=== PATIENT | male | born 1970 | race Caucasian/White ===

== ENCOUNTER 2017-10-03 20:55 | Emergency (ER) | payer MEDICAID, SELFPAY ==
[2017-10-03 21:03] VITALS: BP 151/101; PULSE 101; RESP 18; TEMP 36.6; O2SAT 98; BMI 27.3
--- NOTE | 2017-10-03 21:31 | RAD_ITS ---
STUDY: X-RAY CHEST REASON FOR EXAM: Male, 46 years old. Pain TECHNIQUE: Single AP portable view of the chest. COMPARISON: None. FINDINGS: The lungs are clear and expanded. There is no demonstrated pleural abnormality. Normal size heart. Normal mediastinum and satish. Normal visualized pulmonary arteries. Normal visualized aortic arch and descending thoracic aorta. Normal visualized thoracic spine. Normal visualized ribs, clavicles, and shoulders. There is no demonstrated abnormality of the visualized soft tissue structures of the upper abdomen. RAD/Chest 1 View (Portable) IMPRESSION: Normal x-ray examination of the chest. Electronically Signed: Bigg Osuna MD at 21:54 EST , Service support ,
--- NOTE | 2017-10-03 21:31 | EKG12_ITS ---
Test Reason : CP REPEAT Blood Pressure : / mmHG Vent. Rate : 079 BPM Atrial Rate : 079 BPM P-R Int : 180 ms QRS Dur : 086 ms QT Int : 390 ms P-R-T Axes : 027 -30 -15 degrees QTc Int : 447 ms Normal sinus rhythm Left axis deviation Inferior infarct , age undetermined Abnormal ECG Confirmed by ESTRELLITA VELEZ, MART ([id number]), web editor VICTORIA ZHU ([id number]) on 10/09/2017 2:01:07 PM Referred By: TRUNG Confirmed By:MART HARO MD
[2017-10-03 21:39] VITALS: BP 154/111; PULSE 99
[2017-10-03] MEDS: Aspirin 81 MG TAB.CHEW 324 MG PO (21:39)
[2017-10-03] MEDS: 0.9% Normal Saline 1,000 ML 150 ML IV (21:42)
[2017-10-03 21:46] LABS: Absolute Lymphocyte Count 4.04 X10^3/ul (0.83-4.51); Absolute Neutrophil Count 3.9 X10^3/uL (2.0-7.7); Basophil# 0.04 X10^3/uL; Basophil% 0.4 % (0-1); Eosinophil# 0.21 X10^3/uL; Eosinophils% 2.3 % (0-5); Hematocrit 47.8 % (40-54); Hemoglobin 16.3 g/dl (13.0-16.5); Lymphocyte # 4.04 X10^3/ul (4.0); Mean Corp Hgb Conc 34.1 g/gl (32-36); Mean Corpuscular Hgb 30.4 pg (27.0-32.0); Mean Platelet Vol. 9.2 fl (6.2-12.0); Monocyte# 0.97 X10^3/uL; Monocyte% 10.6 % (0-10); Neutrophil # 3.89 X10^3/uL (2.7-7.7); Neutrophil % 42.3 % (47-70); Platelet Count 257 K/mm3 (150-450); RBC Distribution Width CV 13.1 % (11.6-14.6); RBC Distribution Width SD 42.3 fl (35.1-43.9); Red Blood Count 5.37 M/mm3 (4.6-6.2); White Blood Count 9.2 K/mm3 (4.4-11.0)
[2017-10-03 21:47] LABS: POSITIVE COUNT NO; POSITIVE DIFFERENTIAL NO; POSITIVE MORPHOLOGY NO
--- NOTE | 2017-10-03 21:47 | ED.RN ---
CHEST PAIN COMPLETELY RESOLVED AFTER 1 NITRO.
[2017-10-03 22:00] VITALS: BP 119/91; PULSE 94; RESP 22; O2SAT 97
[2017-10-03 22:02] LABS: Anion Gap 9 (5-15); BUN 12 mg/dL (7-18); BUN/Creat Ratio 12.5 RATIO (10-20); Calcium,Total 9.1 mg/dL (8.5-10.1); Chloride 104 mmol/L (98-107); Creatinine, Serum 0.96 mg/dL (0.70-1.30); EST Glomerular Filtration Rate 89 mL/min (>60); Est Glom Filt Rate - Afr Amer 107 mL/min (>60); Estimated Creatinine Clearance 95.13 ml/min; Glucose 115 mg/dL (74-106); Potassium 3.1 mmol/L (3.5-5.1); Sodium Level 141 mmol/L (136-145)
[2017-10-03 22:39] VITALS: BP 121/89; PULSE 92; RESP 18; O2SAT 97
--- NOTE | 2017-10-03 22:41 | EKG12_ITS ---
Test Reason : CP Blood Pressure : / mmHG Vent. Rate : 100 BPM Atrial Rate : 100 BPM P-R Int : 174 ms QRS Dur : 086 ms QT Int : 366 ms P-R-T Axes : 034 -19 005 degrees QTc Int : 472 ms Normal sinus rhythm Inferior infarct , age undetermined Abnormal ECG Confirmed by ESTRELLITA VELEZ, MART ([id number]), purchasing expeditor VICTORIA ZHU ([id number]) on 10/09/2017 2:01:34 PM Referred By: TRUNG Confirmed By:MART HARO MD
[2017-10-03 23:00] VITALS: PULSE 85; RESP 16; O2SAT 98
[2017-10-04] VITALS: BP 123/93; PULSE 82; RESP 23; O2SAT 98
--- NOTE | 2017-10-04 00:48 | ED.DCSUM_ITS ---
- ER Visit Summary Date of Service: 10/04/17 Chief Complaint: Chest pain History of Present Illness: The patient is a [address] Dunn and Dr. Martínez. He reports that he has chest pain that began at 8:00 at rest. It has been a constant dull pain. Is 7 out of 10 at worst and 3-10 currently. It is worsened by nothing including exertion, movement, or breathing. It is relieved by nothing. States that radiates into his left shoulder and down his arm. States that it has made him short of breath and diaphoretic. Reports that he has had this similarly when he had anxiety or when he required stents. Patient has 4 stents that were placed in 2012. Physical Examination: Vitals: Stable. Afebrile. General: Well-nourished and well-developed. Head: Normocephalic atraumatic. Neck: Supple, no lymphadenopathy. No JVD. Nontender. Cardiovascular: Regular rate and rhythm. No murmurs. Respiratory: No respiratory distress. Clear to auscultation bilaterally. Abdominal: Soft, nontender, nondistended, normal bowel sounds. No guarding, rebound, or peritoneal signs. Back: Nontender. Extremities: Nontender, no edema. Skin: Normal color, no rash. Neurologic: Alert and oriented ?3. Cranial nerves II through XII are intact. Normal strength and sensation. Psych: Normal affect. Test Results: EKG is sinus at [address] changes. Is unchanged from 2016. Repeat EKG is unchanged. Troponin is negative. Repeat troponin is negative. Chem-7 is marked for potassium 3.1 glucose 115. Chem-7 is more for segment neutrophils of 42, lymphocytes of 44, monocytes of 11. Chest x-ray is normal. Emergency Department Course and Treatment: Patient was treated with aspirin p.o. He was given a sublingual nitroglycerin which completely resolved his pain. He was treated with potassium p.o. Treatment Plan: I had a prolonged discussion with the patient at this time that I cannot rule out that this is his heart. He is refusing to be admitted to the hospital. He will be discharged with instructions to follow-up with Dr. Martínez as soon as possible. Return to the emergency department if he has worsening pain, shortness of breath, or even just changes his mind. Disposition: Left AGAINST MEDICAL ADVICE Impression: 1. Chest pain. 2. Left AMA. 3. Hypokalemia. 4. MANOHAR score of 3. This note was generated with [employer] dictation software. It may contain incorrect words, spelling, and punctuation that were not noted in review of the chart prior to signing ED Disposition - Plan for ED Patient: Chief Complaint: Chest Pain Instructions: ED Chest Pain Atypical Unkn Cause Referrals: Perry Dunn MD [Primary Care Provider] - Srinath Hernandez MD [STAFF PHYSICIAN] - As soon as possible
[2017-10-04 01:10] VITALS: BP 126/92; PULSE 72; RESP 18; O2SAT 99
== END 2017-10-04 01:11 | disposition home or self-care (01) ==
LOC: ED 22:01
PROVIDERS: Emergency Provider Emergency Medicine; Family Provider Family Medicine; PCP Family Medicine
DX: R07.9 Chest pain, unspecified (principal); Z53.21 Procedure and treatment not carried out due to patient leaving prior to being seen by health care provider; E87.6 Hypokalemia; R06.00 Dyspnea, unspecified; F41.9 Anxiety disorder, unspecified; I25.10 Atherosclerotic heart disease of native coronary artery without angina pectoris; Z86.79 Personal history of other diseases of the circulatory system; Z86.39 Personal history of other endocrine, nutritional and metabolic disease; Z95.5 Presence of coronary angioplasty implant and graft; Z87.898 Personal history of other specified conditions; F17.200 Nicotine dependence, unspecified, uncomplicated
CPT/HCPCS: 71045; 80048; 84484; 85025; 93005; 96365; 96366; 99285; J7030; A4216

== ENCOUNTER 2017-10-10 09:28 | Observation (INO) | payer MEDICAID, SELFPAY ==
[2017-10-10] VITALS (15 sets, daily range): BP systolic 103–158; BP diastolic 73–107; PULSE 58–84; RESP 16–20; TEMP 36.5–36.8; O2SAT 95–99; BMI 26.6; BMI 26.9
--- NOTE | 2017-10-10 09:42 | EKG12_ITS ---
Test Reason : REPEAT Blood Pressure : / mmHG Vent. Rate : 077 BPM Atrial Rate : 077 BPM P-R Int : 196 ms QRS Dur : 080 ms QT Int : 406 ms P-R-T Axes : 022 -17 -07 degrees QTc Int : 459 ms Normal sinus rhythm Inferior infarct , age undetermined Abnormal ECG Confirmed by ESTRELLITA VELEZ, MART ([id number]), newspaper editor VICTORIA ZHU ([id number]) on 10/15/2017 2:00:11 PM Referred By: GENTRY Confirmed By:MART HARO MD
--- NOTE | 2017-10-10 09:42 | EKG12_ITS ---
Test Reason : CHEST PAIN Blood Pressure : / mmHG Vent. Rate : 077 BPM Atrial Rate : 077 BPM P-R Int : 196 ms QRS Dur : 076 ms QT Int : 406 ms P-R-T Axes : 015 -15 -06 degrees QTc Int : 459 ms Normal sinus rhythm Inferior infarct , age undetermined Abnormal ECG Confirmed by ESTRELLITA VELEZ, MART ([id number]), features editor VICTORIA ZHU ([id number]) on 10/15/2017 2:00:41 PM Referred By: YANDEL Confirmed By:MART HARO MD
--- NOTE | 2017-10-10 09:45 | ED.DCSUM_ITS ---
- ER Visit Summary Date of Service: 10/10/17 Chief Complaint: Chest pain History of Present Illness: The patient is a 46 M with known history of coronary artery disease and prior OH. Patient has 4 cardiac stents, most recent placed in 2012. Patient presents with a one-week history of waxing and waning chest pain. He describes as a tightness in the left upper chest and today has pain into his arm. He does get short of breath with exertion, especially climbing a flight of steps. Patient was seen in the ER on the for the same complaint and refused admission at that time. He has not followed up with his primary care doctor or his jackscrew man. Physical Examination: Blood pressure is 158/107, temperature 97.9, heart rate 84 , respiratory rate 16, pulse ox 99% on room air. Patient is in no acute distress and is nontoxic appearing. Head and neck examination is normal. Heart is regular rate and rhythm. Palpable pulses are noted throughout. Lungs are clear with good air movement throughout. Abdomen is soft and nontender. Bowel sounds are noted. Extremity examination is unremarkable with full range of motion. Neurologic examination reveals no focal deficits. Test Results: EEG is sinus at 77 with no sign of acute ischemia. Repeat 20 minutes later is unchanged. CBC and chemistry studies are normal. Troponin is less than 0.02. Chest x-ray is unremarkable. Emergency Department Course and Treatment: Patient received aspirin and sublingual nitroglycerin here. On repeat evaluation he is currently pain-free. He has agreed to hospital admission. Hospitalist will be contacted for admission. Treatment Plan: [] Disposition: Admit Impression: Chest pain This note was generated with [employer] dictation software. It may contain incorrect words, spelling, and punctuation that were not noted in review of the chart prior to signing ED Disposition - Plan for ED Patient: Chief Complaint: Chest Pain Referrals: Perry Dunn MD [Primary Care Provider] -
--- NOTE | 2017-10-10 09:45 | RAD_ITS ---
STUDY: X-RAY CHEST REASON FOR EXAM: Male, 46 years old. Chest pain. TECHNIQUE: Single AP portable view of the chest. COMPARISON: Comparison is made with prior study dated October 03, 2017. FINDINGS: EKG electrodes are seen. The lungs are clear and expanded. There is no demonstrated pleural abnormality. Normal size heart. Normal mediastinum and satish. Normal visualized pulmonary arteries. Normal visualized aortic arch and descending thoracic aorta. Normal visualized thoracic spine. Normal visualized ribs, clavicles, and shoulders. There is no demonstrated abnormality of the visualized soft tissue structures of the upper abdomen. RAD/Chest 1 View (Portable) IMPRESSION: Normal x-ray examination of the chest. Electronically Signed: Jose Nolen MD at 10:18 EST Tel [phone], Service support ,
[2017-10-10] MEDS: Aspirin 81 MG TAB.CHEW 324 MG PO (10:03)
[2017-10-10] MEDS: 0.9% Normal Saline 1,000 ML 150 ML IV (10:03)
[2017-10-10 10:26] LABS: Absolute Lymphocyte Count 2.97 X10^3/ul (0.83-4.51); Absolute Neutrophil Count 3.9 X10^3/uL (2.0-7.7); Basophil# 0.03 X10^3/uL; Basophil% 0.4 % (0-1); Eosinophil# 0.17 X10^3/uL; Eosinophils% 2.1 % (0-5); Hematocrit 47.1 % (40-54); Hemoglobin 16.2 g/dl (13.0-16.5); Lymphocyte # 2.97 X10^3/ul (4.0); Lymphocyte % 37.4 % (19-41); Mean Corp Hgb Conc 34.4 g/gl (32-36); Mean Corpuscular Hgb 30.6 pg (27.0-32.0); Mean Corpuscular Volume 88.9 fL (80-94); Monocyte# 0.89 X10^3/uL; Monocyte% 11.2 % (0-10); Neutrophil # 3.87 X10^3/uL (2.7-7.7); Neutrophil % 48.6 % (47-70); Platelet Count 245 K/mm3 (150-450); RBC Distribution Width SD 41.9 fl (35.1-43.9)
[2017-10-10 10:32] LABS: POSITIVE COUNT NO; POSITIVE DIFFERENTIAL NO; POSITIVE MORPHOLOGY NO
[2017-10-10 10:37] LABS: Anion Gap 7 (5-15); BUN 13 mg/dL (7-18); BUN/Creat Ratio 14.9 RATIO (10-20); Calcium,Total 8.6 mg/dL (8.5-10.1); Chloride 107 mmol/L (98-107); Creatinine, Serum 0.87 mg/dL (0.70-1.30); EST Glomerular Filtration Rate 100 mL/min (>60); Est Glom Filt Rate - Afr Amer 121 mL/min (>60); Estimated Creatinine Clearance 104.97 ml/min; Glucose 92 mg/dL (74-106); Potassium 3.5 mmol/L (3.5-5.1); Sodium Level 141 mmol/L (136-145)
--- NOTE | 2017-10-10 11:13 | PCM.HP.STD ---
Problem List (1) Chest pain Status: Acute Qualifiers: Ischemic chest pain type: unspecified angina pectoris type (2) CAD (coronary artery disease) Status: Chronic Qualifiers: Coronary Disease-Associated Artery/Lesion type: unspecified vessel or lesion type Associated angina: with unspecified angina Comment: 4 stents last 06/18 (3) Tobacco abuse Status: Chronic History of Present Illness Date of Admission: 10/10/17 Chief Complaint: Chest pain, ongoing for 1 week The patient is a 46 year old M with PMHx of CAD s/p stents, nicotine use disorder comes in with chest pain, which is substernal, radiates to left arm, associated with tingling/the left. This pain has been ongoing for a week, comes on and lasts for about few minutes to an hour. Denies nausea, vomiting, dizziness or palpitations or orthopnea or PND. Previous cardiac cath showed Left anterior descending artery with previously placed stents in the proximal LAD and distal LAD with no significant stenosis, with mild ostial diagonal stenosis with mild diffuse disease.Dominant left circumflex artery with previously placed stent in the proximal vessel which is patent and large obtuse marginal branch with no significant stenosis and a bifurcating vessel. Continuation of circumflex artery with ostial 60% stenosis which does not appear to be significant. Nondominant right coronary artery with mild diffuse disease. Mild left ventricle systolic dysfunction with mild anterior hypokinesis. Estimated ejection fraction 45-50%. Patient was seen earlier in ED on 10/04/2017 for similar complains of chest pain, just admission, promised to follow up with Dr. Martínez in the outpatient. Patient did not follow-up. Cannot remember his last 2D echo or stress test. In the ED, vitals were stable. Patient states his chest pain improved with nitro. EKG is unchanged from previous. Past Medical History Past Medical History (Chronic Problems): Chronic Problems Dyslipidemia (Chronic) Tobacco abuse (Chronic) CAD (coronary artery disease) (Chronic) 4 stents last 06/18 Allergies hydrochlorothiazide Allergy (Verified 10/10/17 09:31) Unknown Home Medications: Ambulatory Orders Medication Instructions Recorded Sertraline HCl [Zoloft] 100 mg PO DAILY 10/10/17 Surgical History: no surgical history, - - low back surgery for spinal canal stenosis Psychiatric History: Depression Smoking Status: Current every day smoker Tobacco Use: Cigarettes Alcohol: None Drugs: None - *Family History Maternal History Items: No pertinent history Paternal History Items: No pertinent history Review of Systems Constitutional: Denies: Anorexia, Chills, Fever, Night Sweats, Malaise, Weakness, Weight Change Eyes: Denies: Blurred vision, Cataracts, Conjunctivae Inflammation, Pain, Redness HEENT: Denies: Difficulty Hearing, Difficulty Swallowing, Head Aches, Hearing Changes, Nasal bleeding, Sinus Congestion, Sinus Drainage, Sore Throat Cardiovascular: Denies: Chest Pain, Claudication, Chest Pressure, Chest Tightness, Orthopnea, Palpitations, Paroxysmal Noc. Dyspnea Respiratory: Denies: Cough, Hemoptysis, Shortness of breath at rest, Shortness of breath upon exertion, Sputum production Gastrointestinal: Denies: Abdominal Pain, Constipation, Hematemesis, Hematochezia, Nausea, Vomiting Genitourinary: Denies: Dysuria, Frequency, Incontinence Musculoskeletal: Denies: Joint Pain, Joint stiffness, Joint swelling, Joint Tenderness Skin: Denies: Rash, Wounds Neurological: Denies: Difficulty swallowing, Focal weakness, Numbness, Tingling Psychiatric: Denies: Anxiety, Depression, Homicidal Ideations, Suicidal Ideations Hematologic/ Lymphatic: Denies: Easy Bruising, Easy Bleeding VTE Information - Inpt Only VTE Present on Admission: No VTE Pharm Prophylaxis ordered?: Yes Patient Problems: Active and Suspected Problems Chest pain (Acute) - Physical Exam General: Alert, Oriented x3, Cooperative, No apparent distress HEENT: Atraumatic, PERRLA, EOMI, Normocephalic Oral: Moist Mucosa Neck: Supple Lungs: Clear to auscultation, Normal air movement Cardiovascular: Regular rate, Regular Rhythm, Normal S1, Normal S2, No murmurs Abdomen: Bowel Sounds Present, Soft, Non Tender, Non-Distended, No Hepato-splenomegaly, Obese Extremities: No edema Skin: No rashes, - - Multiple skin tattoes Musculoskeletal: No Tenderness to Palpation of Joints or Extremities Lymphatic: No Cervical, Supraclavicular, or Inguinal Adenopathy Neurological: Cranial nerves II-XII grossly intact Psych/Mental Status: Normal Affect, Appropriate Vital Signs Temp Pulse Resp BP Pulse Ox 97.9 F 64 20 H 103/77 97 10/10/17 09:29 10/10/17 11:07 10/10/17 11:07 10/10/17 11:07 10/10/17 11:07 Oxygen Delivery Method Room Air Weight: 81.8 kg Body Mass Index (BMI) 26.6 Laboratory Tests Past 24 Hrs 10/10/17 10/10/17 09:57 09:57 WBC 8.0 RBC 5.30 Hgb 16.2 Hct 47.1 MCV 88.9 MCH 30.6 MCHC 34.4 RDW 13.0 RDW Differential 41.9 Plt Count 245 MPV 9.0 Immature Gran % (Auto) 0.300 Neut % (Auto) 48.6 Lymph % (Auto) 37.4 [place]morton % (Auto) 11.2 H Eos % (Auto) 2.1 Baso % (Auto) 0.4 Absolute Neuts (auto) 3.9 Absolute Lymphs (auto) 2.97 Total Counted Not Reportable Sodium 141 Potassium 3.5 Chloride 107 Carbon Dioxide 27.0 Anion Gap 7 BUN 13 Creatinine 0.87 Estim Creat Clear Calc 104.97 Est GFR (MDRD) Af Amer 121 Est GFR (MDRD) Non-Af 100 BUN/Creatinine Ratio 14.9 Glucose 92 Calcium 8.6 Troponin I < 0.02 Assessment/Plan Active and Suspected Problems Chest pain (Acute) 46 year old M with PMHx of CAD s/p stents, nicotine use disorder, follows with Dr. Martínez in the outpatient, comes in with chest pain, which is substernal, radiates to left arm, associated with tingling/the left going for 1 week. 1. Chest pain, typical, history of CAD status post stents, smoker, troponin x1 neg, no new ekg changes. Plan: Admit to PCU, monitor on telemetry, trend troponins, aspirin, nitro prn, cardiology consult, 2d-echo, stress test 2. Chronic nicotine use disorder, osteoporosis, would put on nicotine gum and patch off in the hospital 3. Anxiety/depression, on Zoloft 4. DVT PPx - Lovenox SC Code Visit OBSV E&M: 42037 Initial observation care L3
--- NOTE | 2017-10-10 11:49 | ECHOD_ITS ---
Reason For Study: Chest Pain Procedure This was a 2D Doppler, Color Flow transthoracic echocardiogram. Exam performed portable in patient room. Left Ventricle Moderately dilated left ventricle. The estimated ejection fraction is 45 %. Normal diastology for age. Infero-Basal: Severely Hypokinetic. Mid-Posterior: Mildly hypokinetic. Right Ventricle Normal size and thickness. Normal systolic function. Atria Normal left atrium. Normal right atrium. Normal atrial septum. Mitral Valve The mitral valve is structurally normal. No prolapse or stenosis seen. Trivial mitral valve insufficiency. Tricuspid Valve Normal tricuspid valve. Trivial tricuspid valve insufficiency. Right ventricular systolic pressure estimated to be 23 mmHg. Aortic Valve Trisinus/trileaflet aortic valve. Normal aortic valve. Pulmonic Valve Normal pulmonic valve. Great Vessels Normal aortic root. Normal arch. Normal inferior vena cava. Inferior vena cava collapse with sniff. Pericardium/Pleural No pericardial effusion. MMode/2D Measurements & Calculations LVIDd: 5.5 cm IVSd: 1.1 cm Ao root diam: 3.3 cm LVIDs: 4.0 cm LVPWd: 0.85 cm LA dimension: 3.8 cm RVDd: 3.4 cm FS: 27.4 % LAV(MOD-bp): 37.6 ml LA A4 area: 14.8 cm2 RA A4 area: 13.0 cm2 LAV(MOD-bp) Indexed: 19.0 ml/m2 LAV(MOD-sp2): 34.2 ml LAV(MOD-sp4): 34.7 ml Doppler Measurements & Calculations MV E max soy: 67.4 cm/sec Lat Peak E' Soy: 12.8 cm/sec Med Peak E' Soy: 6.8 cm/sec MV A max soy: 52.5 cm/sec E/E' lat: 5.3 E/E' med: 9.8 MV E/A: 1.3 Ao V2 max: 109.3 cm/sec LV V1 max: 81.5 cm/sec PA V2 max: 92.3 cm/sec Ao max P.8 mmHg LV V1 max P.7 mmHg Ao V2 mean: 87.2 cm/sec Ao mean P.2 mmHg Ao V2 VTI: 23.2 cm TR max soy: 203.5 cm/sec TR max P.6 mmHg Interpretation Summary Moderately dilated left ventricle. The estimated ejection fraction is 45 %. Normal diastology for age. Trivial mitral valve insufficiency. Right ventricular systolic pressure estimated to be 23 mmHg. Compard to echo report dated 12/22/2009, LV function has worsedned from 65% to 45% with new inferior posterior hypokinesis. Ordering Physician: Rupal Kramer Referring Physician: Perry Dunn Performed By: Amy Barr RDCS, RVT
--- NOTE | 2017-10-10 15:29 | PCM.CONS.C ---
Problem List (1) Chest pain Status: Acute Qualifiers: Ischemic chest pain type: unspecified angina pectoris type (2) Dyslipidemia Status: Chronic (3) HTN (hypertension) Status: Acute Qualifiers: Hypertension type: essential hypertension Qualified Code(s): I10 - Essential (primary) hypertension (4) Tobacco abuse Status: Chronic (5) CAD (coronary artery disease) Status: Chronic Qualifiers: Coronary Disease-Associated Artery/Lesion type: unspecified vessel or lesion type Associated angina: with unspecified angina Comment: 4 stents last 06/18 Reason for Consult Date of Consultation: 10/10/17 Reason for Consultation: Chest pain, coronary disease, status post stent, hypertension, tobacco abuse, hypercholesterolemia History of Present Illness: The patient is a 46 year old M, well-known to Dr. Berg myself, with a history of hypertension, hypercholesterolemia, tobacco abuse, [id number] smoking history, coronary artery disease status post angioplasty and stenting to his LAD, left circumflex artery, and moderate LV dysfunction with an EF around 45% with inferior posterior hypokinesis. On 07/15/13 the patient underwent successful angioplasty and stenting of the mid distal LAD, diagonal #1, and proximal LAD. Unfortunately the patient did not follow-up in our office since 2014 and is missed several appointments. Patient was doing well up until the last several weeks when he is developed progressively worsening substernal chest pressure, dyspnea on exertion, shortness of breath and tingling down his right arm. He has no associated nausea, vomiting or diaphoresis with these symptoms. 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 His first 2 troponins have been negative thus far. On further history the patient has discontinued his aspirin, Plavix, antihypertensive medications as well as his cholesterol medication but takes Zoloft for depressive disease. Unfortunately continues to smoke around one pack of cigarettes per day. [] Past Medical History Allergies/Adverse Reactions: Allergies hydrochlorothiazide Allergy (Verified 10/10/17 09:31) Unknown Home Medications: Ambulatory Orders Medication Instructions Recorded Sertraline HCl [Zoloft] 100 mg PO DAILY 10/10/17 Past Medical History (Chronic Problems): Chronic Problems Dyslipidemia (Chronic) Tobacco abuse (Chronic) CAD (coronary artery disease) (Chronic) 4 stents last 06/18 Surgical History: no surgical history, - - low back surgery for spinal canal stenosis Psychiatric History: Depression - *Family History Maternal History Items: No pertinent history Paternal History Items: No pertinent history Smoking Status: Current every day smoker Tobacco Use: Cigarettes Alcohol: None Drugs: None Review of Systems - Review of Systems General: Denies: Fever, Night Sweats, Fatigue Cardiovascular: Reports: Chest Discomfort, Chest Discomfort with Exertion, Shortness of Breath, Shortness of Breath with Exertion. Denies: Orthopnea, PND, Peripheral Edema, Palpitations, Lightheadedness, Dizziness, Near Syncope, Syncope Respiratory: Denies: Cough, Sputum Production, Hemoptysis Gastrointestinal: Denies: Hematemesis, Hematochezia, Melena Genitourinary: Denies: Dysuria, Hematuria Skin: Denies: Rash Subjectve: Patient laying in bed, no acute distress. Objective: Vital Signs Temp Pulse Resp BP Pulse Ox 97.7 F L 63 16 113/73 98 10/10/17 11:50 10/10/17 11:54 10/10/17 11:50 10/10/17 11:50 10/10/17 13:00 Oxygen Delivery Method Room Air Weight: 182 lb 1.629 oz Body Mass Index (BMI) 26.9 General: Awake, Alert, Oriented x 3 HEENT: PERRL, EOMI, Sclera Non Icteric Neck: Supple, Good ROM, No Lymph Node Enlargement Lungs: Clear to auscultation Cardiovascular: Regular Rhythm, Normal S1, Normal S2, No Murmurs, No Rubs, No Gallops Vascular: No Carotid Bruits, Normal Femoral Pulses, Normal Radial Pulses, Normal Dorsalis Pedal Pulse, Normal Posterior Tibial Pulses Abdomen: Bowel Sounds Present, Soft, Non Tender, No HSM, No Organomegaly Extremities: No Cyanosis, No Clubbing, No edema Neurological: No Focal Motor or Sensory Deficit 10/10/17 14:03: Troponin I < 0.02 Rhythm: EKG: As above ECHO: Pending Stress Test: Cardiac Cath: PCI: CT Surgery: Holter monitor: EPS: PPM: CXR: Chest CT Scan: Assessment/Plan 1. Coronary artery disease: Patient has recurrent substernal chest pressure, with associated dyspnea on exertion, shortness of breath, in the face of ongoing tobacco abuse and cessation of all cardiac medications including aspirin, Plavix, cholesterol medications and antihypertensive medications. His most recent angioplasty took place in 2012 which involved angioplasty and stenting to the LAD and diagonal system. His repeat catheterization by Dr. Berg in 2013 demonstrated widely patent stents to the LAD, left circumflex, and diagonal branches. I have reviewed those films today. I recommend the patient be reinitiated on baby aspirin 81 mg p.o. daily, restart Lopressor 25 mg p.o. twice daily after his stress test has been completed, restart lisinopril 5 mg p.o. daily. If his stress test is markedly abnormal particularly for anterior ischemia would recommend loading him with 300 mg of Plavix followed by 75 mg p.o. daily and he will require repeat catheterization probably on Sunday. 2.: Recommend obtaining a repeat lipid profile in restarting Lipitor 80 mg p.o. nightly. 3. Tobacco cessation: I had a long and thorough discussion with patient regarding tobacco cessation, and have strongly recommended discontinuation of all tobacco products. 4. Thank you very much for the opportunity to participate in the cardiac care of your patient. Consultation time took place between 215 and 2:45 PM. Code Visit Inpatient E&M: 80973 Init Hosp L2
--- NOTE | 2017-10-10 15:41 | CON.PCM_ITS ---
Problem List (1) Chest pain Status: Acute Qualifiers: Ischemic chest pain type: unspecified angina pectoris type (2) Dyslipidemia Status: Chronic (3) HTN (hypertension) Status: Acute Qualifiers: Hypertension type: essential hypertension Qualified Code(s): I10 - Essential (primary) hypertension (4) Tobacco abuse Status: Chronic (5) CAD (coronary artery disease) Status: Chronic Qualifiers: Coronary Disease-Associated Artery/Lesion type: unspecified vessel or lesion type Associated angina: with unspecified angina Comment: 4 stents last 06/18 Reason for Consult Date of Consultation: 10/10/17 Reason for Consultation: Chest pain, coronary disease, status post stent, hypertension, tobacco abuse, hypercholesterolemia History of Present Illness: The patient is a 46 year old M, well-known to Dr. Begr myself, with a history of hypertension, hypercholesterolemia, tobacco abuse, [id number] smoking history, coronary artery disease status post angioplasty and stenting to his LAD , left circumflex artery, and moderate LV dysfunction with an EF around 45% with inferior posterior hypokinesis. On 07/15/13 the patient underwent successful angioplasty and stenting of the mid distal LAD, diagonal #1, and proximal LAD. Unfortunately the patient did not follow-up in our office since 2014 and is missed several appointments. Patient was doing well up until the last several weeks when he is developed progressively worsening substernal chest pressure, dyspnea on exertion, shortness of breath and tingling down his right arm. He has no associated nausea, vomiting or diaphoresis with these symptoms. Patient sought medical attention at [facility] ER and EKG was performed which showed normal sinus rhythm with old inferior posterior wall myocardial infarction, no acute changes. His first 2 troponins have been negative thus far. On further history the patient has discontinued his aspirin, Plavix, antihypertensive medications as well as his cholesterol medication but takes Zoloft for depressive disease. Unfortunately continues to smoke around one pack of cigarettes per day. [] Past Medical History Allergies/Adverse Reactions: Allergies hydrochlorothiazide Allergy (Verified 10/10/17 09:31) Unknown Home Medications: Ambulatory Orders Medication Instructions Recorded Sertraline HCl [Zoloft] 100 mg PO DAILY 10/10/17 Past Medical History (Chronic Problems): Chronic Problems Dyslipidemia (Chronic) Tobacco abuse (Chronic) CAD (coronary artery disease) (Chronic) 4 stents last 06/18 Surgical History: no surgical history, - - low back surgery for spinal canal stenosis Psychiatric History: Depression - *Family History Maternal History Items: No pertinent history Paternal History Items: No pertinent history Smoking Status: Current every day smoker Tobacco Use: Cigarettes Alcohol: None Drugs: None Review of Systems - Review of Systems General: Denies: Fever, Night Sweats, Fatigue Cardiovascular: Reports: Chest Discomfort, Chest Discomfort with Exertion, Shortness of Breath, Shortness of Breath with Exertion. Denies: Orthopnea, PND , Peripheral Edema, Palpitations, Lightheadedness, Dizziness, Near Syncope, Syncope Respiratory: Denies: Cough, Sputum Production, Hemoptysis Gastrointestinal: Denies: Hematemesis, Hematochezia, Melena Genitourinary: Denies: Dysuria, Hematuria Skin: Denies: Rash Subjectve: Patient laying in bed, no acute distress. Objective: Vital Signs Temp Pulse Resp BP Pulse Ox 97.7 F L 63 16 113/73 98 10/10/17 11:50 10/10/17 11:54 10/10/17 11:50 10/10/17 11:50 10/10/17 13:00 Oxygen Delivery Method Room Air Weight: 182 lb 1.629 oz Body Mass Index (BMI) 26.9 General: Awake, Alert, Oriented x 3 HEENT: PERRL, EOMI, Sclera Non Icteric Neck: Supple, Good ROM, No Lymph Node Enlargement Lungs: Clear to auscultation Cardiovascular: Regular Rhythm, Normal S1, Normal S2, No Murmurs, No Rubs, No Gallops Vascular: No Carotid Bruits, Normal Femoral Pulses, Normal Radial Pulses, Normal Dorsalis Pedal Pulse, Normal Posterior Tibial Pulses Abdomen: Bowel Sounds Present, Soft, Non Tender, No HSM, No Organomegaly Extremities: No Cyanosis, No Clubbing, No edema Neurological: No Focal Motor or Sensory Deficit 10/10/17 14:03: Troponin I < 0.02 Rhythm: EKG: As above ECHO: Pending Stress Test: Cardiac Cath: PCI: CT Surgery: Holter monitor: EPS: PPM: CXR: Chest CT Scan: Assessment/Plan 1. Coronary artery disease: Patient has recurrent substernal chest pressure, with associated dyspnea on exertion, shortness of breath, in the face of ongoing tobacco abuse and cessation of all cardiac medications including aspirin , Plavix, cholesterol medications and antihypertensive medications. His most recent angioplasty took place in 2012 which involved angioplasty and stenting to the LAD and diagonal system. His repeat catheterization by Dr. Berg in 2013 demonstrated widely patent stents to the LAD, left circumflex, and diagonal branches. I have reviewed those films today. I recommend the patient be reinitiated on baby aspirin 81 mg p.o. daily, restart Lopressor 25 mg p.o. twice daily after his stress test has been completed, restart lisinopril 5 mg p.o. daily. If his stress test is markedly abnormal particularly for anterior ischemia would recommend loading him with 300 mg of Plavix followed by 75 mg p.o. daily and he will require repeat catheterization probably on Sunday. 2.: Recommend obtaining a repeat lipid profile in restarting Lipitor 80 mg p.o. nightly. 3. Tobacco cessation: I had a long and thorough discussion with patient regarding tobacco cessation, and have strongly recommended discontinuation of all tobacco products. 4. Thank you very much for the opportunity to participate in the cardiac care of your patient. Consultation time took place between 215 and 2:45 PM. Code Visit Inpatient E&M: 74193 Init Hosp L2
[2017-10-10 16:30] LABS: Cholesterol 214 mg/dL (200); High Density Lipoprotein 37 mg/dL; Triglycerides 226 mg/dL; Very Low Density Lipoprotein 45 mg/dL (5-40)
[2017-10-10] MEDS: Atorvastatin Calcium 20 MG Tablet PO (21:29)
[2017-10-11 02:58] VITALS: PULSE 62
[2017-10-11 03:45] VITALS: BP 131/76; PULSE 59; RESP 16; TEMP 36.5; O2SAT 96
--- NOTE | 2017-10-11 05:55 | EKG12_ITS ---
Test Reason : AM EKG Blood Pressure : / mmHG Vent. Rate : 060 BPM Atrial Rate : 060 BPM P-R Int : 196 ms QRS Dur : 096 ms QT Int : 444 ms P-R-T Axes : 027 -13 -15 degrees QTc Int : 444 ms Normal sinus rhythm Inferior infarct , age undetermined Abnormal ECG When compared with ECG of 10-OCT-2017 10:09, MANUAL COMPARISON REQUIRED, DATA IS UNCONFIRMED Confirmed by ESTRELLITA VELEZ, MATR ([id number]), school photograph editor VICTORIA ZHU ([id number]) on 10/15/2017 3:26:53 PM Referred By: CHRISTIANO Confirmed By:MART HARO MD
[2017-10-11 06:31] VITALS: BP 118/76; PULSE 65; RESP 16; TEMP 36.6; O2SAT 99
[2017-10-11] MEDS: Aspirin E.C. 81 MG Tablet PO (06:34)
[2017-10-11] MEDS: Lisinopril 5 MG Tablet PO (06:34)
[2017-10-11 06:37] LABS: Hematocrit 45.6 % (40-54); Hemoglobin 15.8 g/dl (13.0-16.5); Mean Corp Hgb Conc 34.6 g/gl (32-36); Mean Corpuscular Hgb 30.4 pg (27.0-32.0); Mean Corpuscular Volume 87.9 fL (80-94); Mean Platelet Vol. 8.9 fl (6.2-12.0); Platelet Count 225 K/mm3 (150-450); RBC Distribution Width CV 12.9 % (11.6-14.6); RBC Distribution Width SD 40.9 fl (35.1-43.9); Red Blood Count 5.19 M/mm3 (4.6-6.2); White Blood Count 8.2 K/mm3 (4.4-11.0)
[2017-10-11 06:39] LABS: Scan Indicated on CBC? Y/N NO
[2017-10-11 06:52] LABS: International Normalized Ratio 1.1; Prothrombin Time (Protime)PT. 13.7 SECONDS (11.7-14.9)
[2017-10-11 06:53] LABS: Partial Thromboplast Time 27.6 Seconds (24.1-36.2)
[2017-10-11 07:00] VITALS: O2SAT 96
[2017-10-11 07:06] LABS: Anion Gap 6 (5-15); BUN 12 mg/dL (7-18); BUN/Creat Ratio 15.7 RATIO (10-20); Calcium,Total 8.4 mg/dL (8.5-10.1); Chloride 108 mmol/L (98-107); Cholesterol 226 mg/dL (200); Creatinine, Serum 0.76 mg/dL (0.70-1.30); EST Glomerular Filtration Rate 116 mL/min (>60); Est Glom Filt Rate - Afr Amer 140 mL/min (>60); Estimated Creatinine Clearance 120.16 ml/min; Glucose 90 mg/dL (74-106); High Density Lipoprotein 37 mg/dL; Potassium 3.6 mmol/L (3.5-5.1); Sodium Level 140 mmol/L (136-145); Triglycerides 270 mg/dL; Very Low Density Lipoprotein 54 mg/dL (5-40)
[2017-10-11 07:10] VITALS: PULSE 57
--- NOTE | 2017-10-11 10:02 | PN.CARD_ITS ---
Subjectve: Patient doing well this morning. No 24 hour events. Telemetry negative. Stress test this morning negative for inducible ischemia. Objective: Vital Signs Temp Pulse Resp BP Pulse Ox 97.8 F 57 L 16 118/76 96 10/11/17 06:31 10/11/17 07:10 10/11/17 06:31 10/11/17 06:31 10/11/17 07:00 Oxygen Delivery Method Room Air Weight: 181 lb 7.047 oz Body Mass Index (BMI) 26.9 Intake and Output for Last 24 Hours 10/09/17 10/10/17 10/11/17 23:59 23:59 23:59 Intake Total 240 / 240 700 / 700 Balance 240 / 240 700 / 700 General: Awake, Alert, Oriented x 3 HEENT: PERRL, EOMI, Sclera Non Icteric Neck: Supple, Good ROM, No Lymph Node Enlargement Lungs: Clear to auscultation Cardiovascular: Regular Rhythm, Normal S1, Normal S2, No Murmurs, No Rubs, No Gallops Vascular: No Carotid Bruits, Normal Femoral Pulses, Normal Radial Pulses, Normal Dorsalis Pedal Pulse, Normal Posterior Tibial Pulses Abdomen: Bowel Sounds Present, Soft, Non Tender, No HSM, No Organomegaly Extremities: No Cyanosis, No Clubbing, No edema Neurological: No Focal Motor or Sensory Deficit 10/10/17 14:02: Triglycerides 226 H, Cholesterol 214 H, LDL Cholesterol 132 H, VLDL Cholesterol 45 H, HDL Cholesterol 37 L 10/10/17 14:03: Troponin I < 0.02 10/10/17 17:57: Troponin I 0.03 10/11/17 00:01: Troponin I < 0.02 10/11/17 06:10: WBC 8.2, RBC 5.19, Hgb 15.8, Hct 45.6, MCV 87.9, MCH 30.4, MCHC 34.6, RDW 12.9, RDW Differential 40.9, Plt Count 225, MPV 8.9 10/11/17 06:10: Sodium 140, Potassium 3.6, Chloride 108 H, Carbon Dioxide 26.0, Anion Gap 6, BUN 12, Creatinine 0.76, Est GFR (MDRD) Af Amer 140, Est GFR (MDRD ) Non-Af 116, BUN/Creatinine Ratio 15.7, Glucose 90, Calcium 8.4 L, Triglycerides 270 H, Cholesterol 226 H, LDL Cholesterol 135 H, VLDL Cholesterol 54 H, HDL Cholesterol 37 L 10/11/17 06:10: PT 13.7, INR 1.1, APTT 27.6 Rhythm: EKG: ECHO: Stress Test: Negative for inducible ischemia. Cardiac Cath: PCI: CT Surgery: Holter monitor: EPS: PPM: CXR: Chest CT Scan: Assessment/Plan 1. Coronary artery disease: Patient has recurrent substernal chest pressure, with associated dyspnea on exertion, shortness of breath, in the face of ongoing tobacco abuse and cessation of all cardiac medications including aspirin , Plavix, cholesterol medications and antihypertensive medications. His most recent angioplasty took place in 2012 which involved angioplasty and stenting to the LAD and diagonal system. His repeat catheterization by Dr. Berg in 2013 demonstrated widely patent stents to the LAD, left circumflex, and diagonal branches. I have reviewed those films today. I recommend the patient be reinitiated on baby aspirin 81 mg p.o. daily, restart Lopressor 25 mg p.o. twice daily after his stress test has been completed, restart lisinopril 5 mg p.o. daily. Stress test was performed this morning which was negative for inducible ischemia. No indication for catheterization at this time. Recommend continuing above medical regimen. Would hold off on restarting Plavix at this time as is been more than 2 years since his angioplasty. 2.: Recommend obtaining a repeat lipid profile in restarting Lipitor 80 mg p.o. nightly. 3. Tobacco cessation: I had a long and thorough discussion with patient regarding tobacco cessation, and have strongly recommended discontinuation of all tobacco products. 4. Thank you very much for the opportunity to participate in the cardiac care of your patient. Patient may be discharged home. Patient may follow-up with me going forward. Code Visit Inpatient E&M: 79822 Subs Hosp L2
--- NOTE | 2017-10-11 10:39 | PCM.DC ---
- Discharge Diagnoses Current Active Problems: Current Active and Chronic Problems Chest pain (Acute) You will use the following diet at home:: Cardiac Your food should be the consistency of: Regular Your liquids should be the consistency of: Regular/Thin Discharge Activity: Return to Normal Activity Allergies/Adverse Reactions: Allergies hydrochlorothiazide Allergy (Verified 10/10/17 09:31) Unknown Medications to take at Discharge Aspirin E.C. [Ecotrin] 81 mg PO DAILY@0800 tablet 10/11/17 Atorvastatin Calcium [Lipitor] 20 mg PO QHS #30 tab 10/11/17 Lisinopril [Zestril] 5 mg PO DAILY #30 tab 10/11/17 Sertraline HCl [Zoloft] 100 mg PO DAILY #30 tab 10/11/17 The following prescriptions were given: Atorvastatin Calcium [Lipitor] 20 mg PO QHS #30 tab Lisinopril [Zestril] 5 mg PO DAILY #30 tab Sertraline HCl [Zoloft] 100 mg PO DAILY #30 tab Primary Care Physician: Perry Dunn MD [Primary Care Provider] - Please follow up with your Primary Care Physician in: 1-2 weeks Proposed Discharge Date: 10/11/17
--- NOTE | 2017-10-11 15:11 | DS.PCM_ITS ---
Discharge Date and Diagnosis Date of Admission: 10/10/17 Date of Discharge: 10/11/17 - Primary Discharge Diagnosis Chest pain - musculoskeletal CAD HLD Tobacco abuse Anxiety/Depression - Secondary Discharge Diagnosis Chronic Problems Dyslipidemia (Chronic) Tobacco abuse (Chronic) CAD (coronary artery disease) (Chronic) 4 stents last 06/18 Hospital Course and Treatment Imaging Results: Echo: Interpretation Summary Moderately dilated left ventricle. The estimated ejection fraction is 45 %. Normal diastology for age. Trivial mitral valve insufficiency. Right ventricular systolic pressure estimated to be 23 mmHg. Compard to echo report dated 12/22/2009, LV function has worsedned from 65% to 45 % with new inferior posterior hypokinesis. RAD/Chest 1 View (Portable) IMPRESSION: Normal x-ray examination of the chest. [facility] - Cardiology Operations: None Procedures: 2-D Echocardiogram, Stress test Summary of Care Provided: Physical exam on day of discharge: General: Resting comfortably NAD Psych: A/Ox3 normal affect HEENT: PEARRLA AT NC Neck: Supple NT CV: RRR no m/t/r/g/h Resp: CTA Abd: [id number] Soft NT no guarding or rigidity Ext: DP2+= no edema Skin: W/D normal turgor Lymph/Heme: No active bleeding or adenopathy Neuro: CN2-12 intact Hospital course: The patient is a 46 year old M with a hx of CAD who had taken himself off of his asa, plavix, and antihypertensives and a hx of angioplasty in 2012, and a smoking history, who presented to the hospital with chest pain. He had a negative EKG, negative CXR, and negative troponin. He was admitted for chest pain workup and the following morning had an echo and stress test. Cardiology was consulted. Stress test was negative. He was started on asa, toprol, lisinopril, and atorvastatin. Cardiology did not recommend restarting plavix at this time. He had also run out of zoloft so a new script was given for this as he complained of poorly controlled anxiety lately. It was felt that his CP was musculoskeletal in origin. We encouraged nicotine abuse cessation, at this time he declined the desire to start a patch as an outpatient. He was discharged home in stable condition. Please follow up with your PCP in 1-2 weeks. This patient was seen by Cristiano Chance PA-C under the supervision of Doctor Williams. [] Discharge Diet: Low fat/ Low Cholesterol, 2000 mg Sodium Diet Discharge Activity: Return to Normal Activity Home Medications: Medications to take at Discharge Aspirin [Aspirin, Baby] 81 mg PO DAILY@0800 #30 tab.chew 10/11/17 Atorvastatin Calcium [Lipitor] 20 mg PO QHS #30 tab 10/11/17 Lisinopril [Zestril] 5 mg PO DAILY #30 tab 10/11/17 Metoprolol Succinate 12.5 mg PO DAILY #30 tab.er.24h 10/11/17 Sertraline HCl [Zoloft] 100 mg PO DAILY #30 tab 10/11/17 Following Prescrptions Were Given to Patient: Aspirin [Aspirin, Baby] 81 mg PO DAILY@0800 #30 tab.chew Atorvastatin Calcium [Lipitor] 20 mg PO QHS #30 tab Lisinopril [Zestril] 5 mg PO DAILY #30 tab Metoprolol Succinate 12.5 mg PO DAILY #30 tab.er.24h Sertraline HCl [Zoloft] 100 mg PO DAILY #30 tab Primary Care Physician: Perry Dunn MD [Primary Care Provider] - Please follow up with your Primary Care Physician in: 1-2 weeks Disposition: Home Minutes spent on discharge:: 35 Patient Condition:: Stable Meaningful Use Info Meaningful Use Diagnoses (Choose all that apply): None applicable
== END 2017-10-11 10:39 | disposition home or self-care (01) ==
LOC: ED 10:04 → PCU 11:22
PROVIDERS: Internal Medicine Cardiovascular Disease; Admitting Provider Internal Medicine; Emergency Provider Emergency Medicine; Family Provider Family Medicine; PCP Family Medicine; Visit Provider Internal Medicine
DX: R07.89 Other chest pain (principal); I25.10 Atherosclerotic heart disease of native coronary artery without angina pectoris; E78.5 Hyperlipidemia, unspecified; F41.9 Anxiety disorder, unspecified; I10 Essential (primary) hypertension; F32.9 Major depressive disorder, single episode, unspecified; F17.210 Nicotine dependence, cigarettes, uncomplicated; R20.2 Paresthesia of skin; R06.09 Other forms of dyspnea; I25.2 Old myocardial infarction; Z79.899 Other long term (current) drug therapy; Z95.5 Presence of coronary angioplasty implant and graft
CPT/HCPCS: 36415; 71045; 80048; 80061; 84484; 85025; 85027; 85610; 85730; 93005; 93017; 93306; 93350; 96360; 96361; 97802; 99218; 99285; 99406; J7030; G0378

== ENCOUNTER 2018-03-04 19:51 | Emergency (ER) | payer MEDICAID, SELFPAY ==
[2018-03-04 19:53] VITALS: BP 104/70; PULSE 99; RESP 18; TEMP 37; O2SAT 98; BMI 26.5
--- NOTE | 2018-03-04 21:52 | ED.DCSUM_ITS ---
- ER Visit Summary Date of Service: 03/04/18 Chief Complaint: Sinus congestion History of Present Illness: The patient is a 47 M presenting with sinus congestion ?4 days. He states he has had rhinorrhea and sinus congestion. He has had a dry cough. He has had temperatures up to 100.2 at home. He states he has had similar symptoms with sinus infections in the past. Denies other complaints. Physical Examination: Vitals are stable. Patient is afebrile. Alert no acute distress. HEENT exam TMs normal bilaterally, pharynx is normal, mild bilateral maxillary sinus tenderness. Neck is supple. Lungs are clear and equal bilaterally. Heart is regular rate and rhythm. Abdomen is soft nontender nondistended. Extremities are unremarkable. Skin is warm and dry. No focal neurologic deficit. Remainder of exam is unremarkable. Emergency Department Course and Treatment: Due to the duration of his symptoms he will not be started on antibiotics at this time as it is likely viral. He is advised to follow-up with his primary care physician. He is given a prescription for Mucinex D. Advised return to ED for worsening complaints. Disposition: Discharge home Impression: Sinusitis This note was generated with [employer] dictation software. It may contain incorrect words, spelling, and punctuation that were not noted in review of the chart prior to signing ED Disposition - Plan for ED Patient: Chief Complaint: General Illness Referrals: Perry Dunn MD [Primary Care Provider] -
--- NOTE | 2018-03-04 21:53 | DCINST.ED_ITS ---
ED Disposition - Plan for ED Patient: Chief Complaint: General Illness Instructions: ED Sinusitis No Abx Prescriptions: Guaifenesin/Pseudoephedrne HCl [Mucinex D ER 1,200-120 mg Tab] 1 each PO BID # 14 tab.er.12h Referrals: Perry Dunn MD [Primary Care Provider] -
[2018-03-04 22:01] VITALS: PULSE 86; RESP 16; O2SAT 98
== END 2018-03-04 22:02 | disposition home or self-care (01) ==
LOC: ED 21:33
PROVIDERS: Emergency Provider Emergency Medicine; Family Provider Family Medicine; PCP Family Medicine
DX: J32.9 Chronic sinusitis, unspecified (principal); F32.9 Major depressive disorder, single episode, unspecified; Z79.82 Long term (current) use of aspirin; Z79.899 Other long term (current) drug therapy; Z72.0 Tobacco use
CPT/HCPCS: 99283

== ENCOUNTER → 2018-05-02 12:39 | Outpatient (CLI) | payer MEDICAID, SELFPAY ==
--- NOTE | 2018-05-02 12:41 | CT_ITS ---
STUDY: CT FACIAL BONES WITHOUT CONTRAST REASON FOR EXAM: Male, 47 years old. Sinusitis RADIATION DOSAGE (If Supplied By Facility): CTDIvol = ( 33.45 ) mGy, DLP = ( 855.81 ) mGycm TECHNIQUE: The patient was scanned in a multi detector CT scanner. Sagittal and coronal images were reconstructed. Individualized dose optimization techniques were used for this CT. COMPARISON: None. FINDINGS: Normal soft tissue structures. Normal orbital meehan and orbital contents. Normal nasal bones and anterior nasal spine. Normal facial bones. There is no demonstrated fracture. The frontal sinuses are hypoplastic. The ethmoid, sphenoid, and maxillary sinuses are appropriately pneumatized. There are bilateral polypoid filling defects of the maxillary sinuses. There is mucosal thickening of multiple ethmoid air cells bilaterally. The mastoids appear within normal limits. Numerous carious teeth are noted. CT/Sinus/Facial Bone IMPRESSION: 1. Hypoplastic frontal sinuses. 2. Bilateral polypoid filling defects of the maxillary sinuses consistent with mucoid retention cysts. 3. Mucosal thickening of multiple ethmoid air cells bilaterally consistent with chronic ethmoid sinusitis. 4. Carious teeth. Electronically Signed: Bertram Whitaker MD at 17:05 EDT , Service support ,
== END ==
PROVIDERS: Family Provider Family Medicine; PCP Family Medicine; Referring Provider Otolaryngology; Visit Provider Otolaryngology
DX: J32.9 Chronic sinusitis, unspecified (principal)
CPT/HCPCS: 70486

== ENCOUNTER 2018-06-06 07:26 | Outpatient (RCR) | payer MEDICAID, SELFPAY ==
--- NOTE | 2018-06-06 18:28 | HP.OTFCE_ITS ---
HP OT Functional Capacity Eval - Reference Duration Sedentary Sedentary Light Light Light Medium Medium Medium Heavy Very Heavy Heavy Occasional (0-33% of day) Frequent (34-66% of day) Constant (67-100% of day) 10 # Negligible Negligible 15 # 8 # Negligible 20 # 10# Negli. 35 # 18 # 7 # 50 # 25 # 10 # 75 # 100 # >100 # 38 # 50 # >50 # 15 # 20 # >20 # - Patient Information Height: 1.78 m Weight:: 82.1 kg Hand Dominance: R BP (Medication Use/Usual Values per pt report): Yes - Medical History Medical History Including Restrictions: Per Pt. report no medical restrictions given to him by physician within last. No additional paperwork brought to session regarding restrictions by Pt. - Diagnoses Diagnoses: Current: Referred for FCE due to Lumbar DDD. PMHx: HTN, h/o [place] (2012), CAD, hyperlipedemia. Noted past surgery for spinal stenosis in 2004. Unable to determine fi lamiectomy was performance or fusion. - Symptoms Symptoms: Pt. noted that his main symptoms are junior burning like pain radiaiting down my R leg. Notes that he been consisent for about 13 years. Notes when standing for periods of time he explianed his hips start to ache. - Pain Pain: Pt. completed Anne Marie pain questionarrie upon arrival. Post edcuation on pain scale he determined his pain was at 4/10. Not on pain management program. He has not had PT since 2009. Takes gabapetin 300 mg 3x daily (morning, noon, and night). Did not take prior to arrival to [facility] [place]. Pre Pain related testing: - Pre-test Anne Marie: sum 49. - Oswestry Low Back: Post Test: Anne Marie Pain Quest ionnaire: 56 - Work History Work History: Pt. has not been employed since 2008. 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 Notes he was working 10 hour shifts five days a week with three breaks throughout that day for two 10 minute breaks and one half hour break. He is unable to recall how much he was able to lift but noted was required to standing during times not on break. - ADLS ADLS: Pt. lives with mother in two story apartment. He has 1x step to enter with handrail. Once in apartment he has split level with bedroom and bathroom being on second floor. Explained there is about 13 steps to get upstairs with Bilateral handrail. Sleeps upstairs in bedroom. He notes he is completing all s howering, dressing, and grooming atsks (i). Notes showering 3-4x week. Explained he is no longer driving. Does not complete grocery shopping with mother. Mother completes as Pt. reports pain with wallking around at [employer]. Notes visits girlfriend on most weekends in which she comes to pick him up. No pets to care for at thsi time. - Physical Examination Physical Examination: Typically sees Dr. Dunn every 6 weeks. Resting: Blood Pressure (BP) 118/80 mmHg. 02 97%. HR 68 ROM: Spinal alingment ROM: Lumbar flexion: Inclinometer. Lumbar: - flexion: L1 0-41 degrees. L5 0-16 degrees 11, 21, 18. - Extension: L1 0 -8 degrees. L5 0- 5 degrees. Lumbar. Goniometric testing: - Lateral leaning : R 0-15 L 0-0-19. Slums test: no chin tuck with completion. Pain not much pain to low back with touch but some tenderness. Unable to complete full leg extension in supine at slow rate. Able to complete 90 degrees hip flexion with knee flexed at 90 degrees and foot in dorsiflexion/neutral. Increased pain in R LE than L LE with completion of test. Pain 5/10 Strength: B UE. shoulder. flexion: -empty can: Negatuve: Suprasination R 5/5, L 5/5. internal rotation: R 5/5, L 5/5. external rotation:R 5/5, L 5/5. Elbow: Flexion: R 5/5, L 5/5. extension: 4+/5, L 4+/5. Pain 5/10: Some g rtimance noted R LE with additional resistance added. B UE: hip flexion: R 4- /5, L 4-/5. hip adduction: hip abduction: Right Time Study Observer Strength Average: 71.33 Left Time Study Observer Strength Average: 85.66 Right Lateral Pinch Average: 19.33 Left Lateral Pinch Average: 19.66 Right Tripod Pinch Average: 17.00 Left Tripod Pinch Average: 17.00 Comments: Five SPan Time Study Observer Testing: Position 1 (P1): R 59, L 61. P2: R 74, L 90. P3: R 71, L 81. P4: R 70, l 82. P5: R 55, L 70 Sensation: Notes numbness and tingling in L hand. Denies numbness and tingling in B Feet. Monofilamnet test completed to further determine touch related sesnation and any sensational related defciits. Results are as follows: R 2nd 3.22 3rd 3.22 4th 2.83 5th 2.83 thumb 3.61. L 2nd 2.83 3rd 2.83 4th 3.22 5th 2.83 thumb 3.22 Fine Motor: Fine motor control appears to be intact. Able to complete all strength related pinch testing. Completed purdue pegboard for increased measmures [facility] an dexterity related tasks: Completed one trials fo the following with 3-5 peg rleated practice rounds prior to complete of times task. Resutls are as follows: R hand: 14. - percentile: L hand: 11. - percentile: both hands: 10. - percentile: Right + Left + Both: 35. - percentile: Assembly: 6. - percentile: Balance: Completed Romberg static balance test. Completed shoes off, nondominant foot in front for tandem and semitandem tasks. Results as follows: Eye Open: - feet together: 60 seconds. - semi tandem: 60 seconds. - tandem: 60 seconds. Eyes Closed: - feet together: 60 seconds. - semi tandem: 60 seconds. - tandem: 30 seconds. Single leg test: eyes open: - R 25 seconds need for foot down for less than 2 seconds and able to continue to 51 seconds. L: able to hold 60 second s. Eyes closed. - R 11 s. -L 9 s. Functional Gait Assessment (FGA): 1. gait functional surface- moderate. 2. change in gait speed- mild. 3. gait with horizontal head turn - moderate. 4. gait with vertical head turns - moderate. 5. gait and pivot turn - normal. 6. step over obstacle: mild. 7. Gait with narrow base of support - mild. 8. Gait with eyes closed- mild. 9. Ambulating backwards- normal. 10. steps- mild - Non Material Handling Activities Bendinx, 10x (25 seconds to complete), 1x 10 fast (2 seconds to complete. 75% of full bend. Pain reports 4/10. HR 95. 02: 99% Squattinx, 10x 2 seconds, 10x fasters (17 seconds). Pain 4/10; primance noted with movements. full squat. HR 112 post 1x 10, HR 127 post 1x10 fast. 02 98% Kneelinx, 1x10 (completion in 18 seconds) , 1x10 fast completion in 14 seconds. Diagnostics post: 1x10. HR 114. 02 98%. 1x10 fast. HR 127. 02% 98. BP 128/94 mmHg. Resports pain 6/10 Reaching out/up: Reaching out from standinX, 10x, 10 x fast (10 seconds to complete). - no crepitus but slight tendon click with palpation after Pt. noted increased pooping. 1x, 10x (11 seconds to complete), 10x fast (9 seconds to complete). HR: 90. 02: 99% Walking: Completed walking around gym to complete 100 yards walk at fast pace in 82.13 seconds. Diognosticas post 100 yards walk: HR 91 bpm. 02 99. BP 137/89 mmHg Standing: Explained he can stand for about 23 mins he experiences pain but can go for 35-45 mins. Able to complete 30 mins of standing during FCE with completion of both static and dynamic tasks. Sitting: Explained he is able to sit for 30 mins prior to needing to change position. Climbing Stairs: Notes he is able to complete 13 steps in apartments 3-4x daily. Able to complete 30 stairs ascending and decending with 1x handrails and alternating foot pattern during FCE in 72 seconds. Mild antalgic gait noted. grimance noted. USe of functional pain scale noted pain 4-5/10. HR 100. 02 95%. BP 130/85 mmHg - Dynamic Occasional Lifting Capacity Floor Lift: Max weight: 35. Occassional Weight: 30 lbs. frequent 15 lbs. HR post occassional: HR 124. 02 98%. HR post Frequent: HR post 5x frequnt: 125 bpm. 02 98%. Pain 5/10; need for seated break post completion of task. Knee Lift: Max weight 30 lbs. Occassional 25 lbs. frequent: 15 lbs. Pain 5/10. HR 130 bpm. 02 98%. BP 129/80 mmHg Waist Lift: Max weight: 35 lbs. Occassional: 30. Frequent: 15 lbs. Pain 5/10. HR 135. 02 97%. BP 103/82 Shoulder Lift: Max weight: 35 lbs. Occassional weight: 30 lbs. Frequent: 15 lbs. Pain 5/10. HR 122 bpm. 02 98 %. BP 118/82 Overhead Lift: Max weight: 35 lbs. Occassional weight: 30 lbs. Frequent: 15 lbs. HR 118 bpm. 02 98%. BP: 120/72 mmHg Carrying: Occassional weight for 20. Pain 5/10 pain; Antalgic gait noted to L LE. HR 127. 02 98. BP: 102/66 mmHg Comments: Able to complete standing position for another 22 mins during materials management tasks. Needed 1x 1 mins seated break after floor lift prior to continuing. Most comfortable position is to lay on L side for 8+ hours. After 5 mins seated break at compeltion of session: Hr 85 bpm. 02 97%
--- NOTE | 2018-06-06 18:28 | HP.OTFCE.D ---
FCE D/C Summary - Discharge KATHIE FULLER was seen for a one time visit for an FCE on 06/06/18 and is discharged.
--- NOTE | 2018-06-10 13:14 | HP.OTFCE_ITS ---
HP OT Functional Capacity Eval - Task Lift Floor (Occasional 1-33% of Day): 30 lbs Floor (Frequent 34-66% of Day): 15 lbs Floor (Constant 67-100% of Day): 6 lbs Floor PDL: Light Knee (Occasional 1-33% of Day): 25 lb Knee (Frequent 34-66% of Day): 15 lbs Knee (Constant 67-100% of Day): 6 lbs Knee PDL: Light Waist (Occasional 1-33% of Day): 30 lbs Waist (Frequent 34-66% of Day): 15 lbs Waist (Constant 67-100% of Day): 6 lbs Waist PDL: Light Shoulder (Occasional 1-33% of Day): 30 lbs Shoulder (Frequent 34-66% of Day): 15 lbs Shoulder (Constant 67-100% of Day): 6 lbs Shoulder PDL: Light Overhead (Occasional 1-33% of Day): 30 lbs Overhead (Frequent 34-66% of Day): 15 lbs Overhead (Constant 67-100% of Day): 6 lbs Overhead PDL: Light Comments: Scored in the light category for material handling. Increased compensations and mechanical deficits noted with reaching light medium category weight limit of 35 lbs. - Work Activity/Posture Bending: Occasional Ability (1-33% of day) Squatting: Occasional Ability (1-33% of day) Kneeling: Occasional Ability (1-33% of day) Reaching out: Frequent Ability (34-66% of day) Reaching up: Frequent Ability (34-66% of day) Walking: Occasional Ability (1-33% of day) Standing: Occasional Ability (1-33% of day) - Reference Duration Sedentary Sedentary Light Light Light Medium Medium Medium Heavy Very Heavy Heavy Occasional (0-33% of day) Frequent (34-66% of day) Constant (67-100% of day) 10 # Negligible Negligible 15 # 8 # Negligible 20 # 10# Negli. 35 # 18 # 7 # 50 # 25 # 10 # 75 # 100 # >100 # 38 # 50 # >50 # 15 # 20 # >20 # - Patient Information Height: 1.78 m Weight:: 82.1 kg Hand Dominance: R BP (Medication Use/Usual Values per pt report): Yes - Medical History Medical History Including Restrictions: Per Pt. report no medical restrictions given to him by physician within last year. No additional paperwork brought by Pt. to session regarding restrictions. - Diagnoses Diagnoses: Current: Referred for E due to Lumbar DDD. PMHx: HTN, h/o [place] (2013), CAD, hyperlipidemia. Noted past surgery for spinal stenosis in 2004. Unable to report what type of spinal surgery he had completed like if he underwent a laminectomy or if or spinal fusion was performed. - Symptoms Symptoms: Pt. noted that his main symptom is sharp burning like pain radiating down my R leg. Explained that he been consistent for about 13 years. Notes when standing for periods of time he explained his hips start to ache. - Pain Pain: Pt. completed Anne Marie pain questionnaire upon arrival. A score of 30 or greater on the Anne Marie pain questionnaire indicates the increased risk of a Pt. having poor psychodynamics with pain reporting. Post education on pain scale he determined his pain was at 4/10. Not on pain management program. He has not had PT since 2009. Takes gabapentin 300 mg 3x daily (morning, noon, and night). Did not take prior to arrival to [facility] [place]. Pre Pain related testing: - Pre-test Anne Marie: sum 49. - Oswestry Low Back: 31/50. Post Test: Anne Marie Pain Questionnaire: 56. Oswestry Low Back Pain: 32/50 - Work History Work History: Pt. has not been employed since 2008. 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 Notes he was working 10 hour shifts five days a week with three breaks throughout that day. Explained he was allowed 2x 10 minute breaks and 1x 30 mins break. He is unable to recall how much he was able to lift but noted was required to stand during times not on break. Later in session noted that he did not last long? at that job. 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 - Behavioral Behavioral: Ciro was pleasant and cooperative throughout task. Appeared to try all tasks appropriately and without getting upset with therapist for increase in symptoms. - ADLS ADLS: Pt. lives with mother in two story apartment. He has 1x step to enter with handrail. Once in apartment he has split level with bedroom and bathroom being on second floor. Explained there is about 13 steps to get upstairs with Bilat eral handrail. Sleeps upstairs in bedroom. He notes he is completing all showering, dressing, and grooming tasks (i). Notes showering 3-4x week. Explained he is no longer driving. Does not complete grocery shopping with mother. Mother completes as Pt. reports pain with walking around at [employer]. Notes visits girlfriend on most weekends in which she comes to pick him up. No pets to care for at this time. - Physical Examination Physical Examination: Ciro arrived for FCE on this date of 06/06/18. The purpose of this FCE was to determine Ornelas physical ability as he would like to file for social security disability. He noted that he has not worked for last nine years post back related surgery. He follows up with Dr. Dunn every 6 weeks but is not on pain management program at this time. Resting diagnostics: Blood Pressure (BP) 118/80 mmHg. 02 97%. HR 68 ROM: Spinal alignment ROM: Lumbar flexion: Inclinometer. Lumbar: - flexion: L1 0-41 degrees. L5 0-16 degrees. - Extension: L1 0 -8 degrees. L5 0- 5 degrees. Lumbar. Goniometric testing: - Lateral leaning : R 0-15 L 0-0-19. Slums test: positive with increased pain with compeltion of task. Supine and straight leg: positive with increased pain in buttocks. Unable to complete full leg extension in supine at slow rate. Able to complete 90 degrees hip flexion with knee flexed at 90 degrees and foot in dorsiflexion/neutral. Increased pain in R LE than L LE with completion of test. Pain not much pain to low back per Pt. report but radiating pain from low back down R LE. Some tenderness noted with touch. Pain 5/10 Strength: B UE. shoulder. flexion: R 5/5, L 5/5. -empty can: Negative: Supraspinatus R 5/5, L 5/5. internal rotation: R 5/5, L 5/5. external rotation: R 5/5, L 5/5. Elbow: Flexion: R 5/5, L 5/5. extension: 4+/5, L 4+/5. Pain 5/10: Some grimace noted R LE with additional resistance added. B U E: hip flexion: R 4-/5, L 4-/5. hip adduction: R 5/5, L 5/5. hip abduction: R 5/5, L 5/5 Right Mechanical Integrity Engineer Strength Average: 71.33 Right Mechanical Integrity Engineer Strength Percentile: less 10th Left Mechanical Integrity Engineer Strength Average: 85.66 Left Mechanical Integrity Engineer Strength Percentile: less 15th Right Lateral Pinch Average: 19.33 Right Lateral Pinch Percentile: about 50th Left Lateral Pinch Average: 19.66 Left Lateral Pinch Percentile: 50th Right Tripod Pinch Average: 17.00 Right Tripod Pinch Percentile: above 25th but below 50th Left Tripod Pinch Average: 17.00 Left Tripod Pinch Percentile: approximately 50th Comments: Five Span Mechanical Integrity Engineer Testing: Position 1 (P1): R 59, L 61. P2: R 74, L 90. P3: R 71, L 81. P4: R 70, l 82. P5: R 55, L 70 Sensation: Notes numbness and tingling in L hand. Denies numbness and tingling in B Feet. Monofilament test completed to further determine touch related s ensation and any sensational related deficits. Results are as follows: R 2nd 3.22 3rd 3.22 4th 2.83 5th 2.83 thumb 3.61. L 2nd 2.83 3rd 2.83 4th 3.22 5th 2.83 thumb 3.22 Fine Motor: Fine motor control appears to be intact. Able to complete all strength related pinch testing. Completed Purdue pegboard for increased measurement of FMC and dexterity related tasks: Completed one trials of the following with 3-5 peg related practice rounds prior to complete of times task. Results are as follows: R hand: 14. - percentile: 5th. L hand: 11. - percentile: 1st. both hands: 10. - percentile: 3rd. Right + Left + Both: 35. - percentile: approximately 2nd. Assembly: 6. - percentile: 1st Balance: Completed Romberg static balance test. Completed shoes off, nondominant foot in front for tandem and Completed Romberg static balance test. Completed shoes off, nondominant foot in front for tandem and semi tandem tasks. Results as follows: Eye Open: - feet together: 60 seconds. - semi tandem: 60 seconds. - tandem: 60 seconds. Eyes Closed: - feet together: 60 seconds. - semi tandem: 60 seconds. - tandem: 30 seconds. Single leg test: eyes open: - R 25 seconds need for foot down for less than 2 seconds and able to continue to 51 seconds. L: able to hold 60 second s. Eyes closed. - R 11 s. -L 9 s. Static balance with use of vision is intact based on performance on static balance tasks. For higher level balance, example off the ground balance, deficits were noted with vision occluded. Functional Gait Assessment (FGA): 1. gait functional surface- moderate. 2. change in gait speed- mild. 3. gait with horizontal head turn - moderate. 4. gait with vertical head turns - moderate. 5. gait and pivot turn - normal. 6. step over obstacle: mild. 7. Gait with narrow base of support - mild. 8. Gait with eyes closed- mild. 9. Ambulating backwards- normal. 10. steps- mild. Total: . Results of FGA indicated performance is two standard deviations below peer-based results for age range. Dynamic is below peer based normative data. - Non Material Handling Activities Bendinx, 10x (25 seconds to complete), 1x 10 fast (20 seconds to complete). Able to complete 75% of full bend. Completed with minimal thoracic flexion. No increased in heart rate noted. Pain behaviors observed of facial grimace and hands on hips post completion of tasks. Pain reported at 10. HR 95. 02: 99% Squattinx, 10x 2 seconds, 10x fasters (17 seconds). Completed with ability to complete about 50% to then full squat as task continued. Compensations noted of holding breath. Increase in heart rate observed from previous task. Some pain behaviors noted of holding breath and grimace. Need for short standing break prior to continuing. Pt. rated pain at /10. HR 112 post 1x 10, HR 127 post 1x10 fast. 02 98% Kneelinx, 1x10 (completion in 18 seconds) , 1x10 fast completion in 14 seconds. Diagnostics post: 1x10. HR 114. 02 98%. Post 1x10 fast: HR 127. 02% 98. BP 128/94 mmHg. Able to complete 75% of full kneel for kneeling tasks. Completed with slight mechanical deficits of lateral lean to L LE to promote moving to upright position. Generally, fair body mechanics with ability to maintain spinal alignment with task. Pain rated at 6/10. Some shortness of breath noted from exertion and some increased in heart rate noted from first to second set of ten repetitions. Reaching out/up: Reaching out from standinX, 10x, 10 x fast (10 seconds to complete). - no crepitus but slight tendon click with palpation after Pt. noted increased popping. 1x, 10x (11 seconds to complete), 10x fast (9 seconds to complete). HR: 90. 02: 99%. No increase in heart rate noted. Able to complete with good body mechanics in standing positions. Slight pain behaviors of grimace noted. Pain rated at 4/10 in low back. Walking: Completed walking around gym to complete 100 yards walk at fast pace in 82.13 seconds. Diagnostics post 100 yards walk: HR 91 bpm. 02 99. BP 137/89 mmHg. Completed dynamic and standing tasks in standing position for 22 mins. Completed weight shifts as needed. Completed dynamic gait with antalgic gait to R LE with lateral swing of R leg during dynamic gait. No increase in heart rate. Slight change in gait observed between slow and quick cadences. Standing: Explained he can stand for about 23 mins. Explained he experiences pain at about 23 mins but can go for 35-45 mins. Able to complete 30 mins of standing during FCE with completion of both static and dynamic tasks. Sitting: Reported he is able to sit for 30 mins prior to needing to change position. Completed sitting for 41 mins during FCE during intake of background information. Need for 2x weight shifts in change. Noted no increase in pain with therapist inquiry. Climbing Stairs: Notes he is able to complete 13 steps in apartments 3-4x daily. Able to complete 30 stairs ascending and descending with 1x handrails and alternating foot pattern during FCE in 72 seconds. Mild antalgic gait noted. Grimace noted. Use of functional pain scale noted pain 4-5/10. HR 100. 02 95%. BP 130/85 mmHg - Dynamic Occasional Lifting Capacity Floor Lift: Max weight: 35. Occasional Weight: 30 lbs. frequent 15 lbs. Completed with good body mechanics. Compensation of holding breath noted. Increase in compensations with maximum weight. Improvement in body mechanics and decreased compensations with decrease weight. Able to maintain spinal alignment throughout task. Increase in heart noted. Increased in pain behaviors observed with 1-2x grimace throughout task and need for seated break at end of task. Pain 5/10. HR post occasional: HR 124. 02 98%. HR post Frequent: HR post 5x frequent: 125 bpm. 02 98% Knee Lift: After 5 mins seated break at completed the rest of session: HR 85 bpm. 02 97%. Max weight 30 lbs. Occasional 25 lbs. frequent: 15 lbs. Completed with fair body mechanics. Lifts with extended elbows. Minimal mechanical deficits noted and compensations of holding breath. Able to maintain spinal alignment. Increase in heart rate noted, some observed grimace noted 2x during task. No wincing of mechanical changes observed from start to finish with appropriate weight. HR 130 bpm. 02 98%. BP 129/80 mmHg Waist Lift: Max weight: 35 lbs. Occasional: 30. Frequent: 15 lbs. Completed with fair body mechanics. Decrease spinal alignment of increased thoracic flexion. Slight grimace noted with placement of box. Pain 5/10. HR 135. 02 97%. BP 103/82 Shoulder Lift: Max weight: 35 lbs. Occasional weight: 30 lbs. Frequent: 15 lbs. Completed fair body mechanics. Decrease spinal alignment noted with weapons system instrument mechanic changes of increased lumbar extension and cervical flexion for placement of box during task. Shortness of breath noted but no mechanical changes noted throughout task. No increase in heart rate observed. Pain rated at 5/10. . HR 122 bpm. 02 98 %. BP 118/82 Overhead Lift: Max weight: 35 lbs. Occasional weight: 30 lbs. Frequent: 15 lbs. Completed fair body mechanics. Decrease spinal alignment noted with weapons system instrument mechanic changes of increased lumbar extension and cervical flexion for placement of task. Shortness of breath noted. Minimal mechanical deficits but no mechanical changes noted throughout task. No increase in heart rate from previous measurement observed. Pain rated 5/10. HR 118 bpm. 02 98%. BP: 120/72 mmHg Carrying: Occasional weight for 20 lbs. Completed with fair- poor body mechanics. Decreased spinal alignment noted with increase antalgic gait noted t/o B LE. Minimal mechanical deficits but no mechanical changes noted throughout task. Increased shortness of breath observed with some noted facial grimacing but pain at 5/10. Increase in heart rate observed. HR 127. 02 98. BP: 102/66 mmHg Comments: Able to complete standing position for another 22 mins during materials management tasks in addition to previous standing tasks. Needed 1x 1 min seated break after floor lift prior to continuing. Noted most comfortable position is to lay on L side for 8+ hours.
== END 2018-06-06 19:00 | disposition home or self-care (01) ==
LOC: OT 07:26
PROVIDERS: Family Provider Family Medicine; PCP Family Medicine; Referring Provider Family Medicine; Visit Provider Family Medicine
DX: M51.37 Other intervertebral disc degeneration, lumbosacral region (principal)
CPT/HCPCS: 97750

== ENCOUNTER 2018-07-02 08:45 | Day surgery (SDC) | payer MEDICAID, SELFPAY ==
[2018-06-24 11:32] VITALS: BMI 27.0
--- NOTE | 2018-06-28 08:50 | EKG12_ITS ---
Test Reason : PREOP Blood Pressure : / mmHG Vent. Rate : 077 BPM Atrial Rate : 077 BPM P-R Int : 172 ms QRS Dur : 088 ms QT Int : 382 ms P-R-T Axes : 039 -15 003 degrees QTc Int : 432 ms Normal sinus rhythm Inferior infarct , age undetermined Abnormal ECG Confirmed by ESTRELLITA VELEZ, MART ([id number]), staff editor VICTORIA ZHU ([id number] on 06/28/2018 2:58:13 PM Referred By: Lorenzo Lancaster Confirmed By:MART HARO MD
[2018-06-28 09:21] LABS: Hematocrit 49.1 % (40-54); Hemoglobin 16.4 g/dl (13.0-16.5); Mean Corp Hgb Conc 33.4 g/gl (32-36); Mean Corpuscular Hgb 30.9 pg (27.0-32.0); Mean Corpuscular Volume 92.6 fL (80-94); Platelet Count 309 K/mm3 (150-450); RBC Distribution Width CV 14.1 % (11.6-14.6); Scan Indicated on CBC? Y/N NO; White Blood Count 7.3 K/mm3 (4.4-11.0)
[2018-06-28 09:46] LABS: Anion Gap 13 (5-15); BUN 14 mg/dL (7-18); BUN/Creat Ratio 15.7 RATIO (10-20); Calcium,Total 9.3 mg/dL (8.5-10.1); Chloride 103 mmol/L (98-107); Creatinine, Serum 0.89 mg/dL (0.70-1.30); EST Glomerular Filtration Rate 97 mL/min (>60); Est Glom Filt Rate - Afr Amer 117 mL/min (>60); Glucose 106 mg/dL (74-106); Potassium 4.1 mmol/L (3.5-5.1); Sodium Level 140 mmol/L (136-145)
[2018-07-02 09:07] VITALS: BP 128/98; PULSE 88; RESP 16; TEMP 36.4; O2SAT 97; BMI 26.9
--- NOTE | 2018-07-02 10:06 | DCINST_ITS ---
You will use the following diet at home:: No restrictions Your food should be the consistency of: Regular Discharge Activity: Return to Normal Activity, May not drive while taking narcotic pain medications. Call your doctor if your incision/area has: Sudden Increased Bleeding Additional Dressing/Incision Instructions:: saline to nose 6 times/day. mupirocin ointment to both nostrils and incision twice daily. sleep with head of bed elevated. do not get the bridge of the nose wet - except, the morning of your follow up appointment, get it very wet in the shower. Allergies/Adverse Reactions: Allergies hydrochlorothiazide Adverse Reaction (Severe, Verified 06/25/18 09:20) Pt got very dizzy, dehydrated Medications to take at Discharge Aspirin [Aspirin, Baby] 81 mg PO DAILY@0800 #30 tab.chew 10/11/17 Sertraline HCl [Zoloft] 100 mg PO DAILY #30 tab 10/11/17 Gabapentin [Neurontin] 300 mg PO TID 03/04/18 atorvastatin 40 mg tablet 40 mg PO DAILY #30 tab 06/24/18 lisinopril 5 mg tablet 5 mg PO DAILY #30 tab 06/24/18 metoprolol succinate ER 25 mg tablet,extended release 24 hr 12.5 mg PO DAILY #30 tab 06/24/18 Oxycodone HCl/Acetaminophen [Percocet 5/325] 1 tab PO Q6H PRN PRN 5 Days #20 tab 07/02/18 Smz/Tmp Ds [Bactrim Ds] 1 tab PO BID #14 tab 07/02/18 The following prescriptions were given: Oxycodone HCl/Acetaminophen [Percocet 5/325] 1 tab PO Q6H PRN PRN 5 Days #20 tab PRN Reason: Pain Smz/Tmp Ds [Bactrim Ds] 1 tab PO BID #14 tab Primary Care Physician: Perry Dunn MD [Primary Care Provider] - Test Results: Test results from this visit will be discussed in further detail at your follow- up appointment, if applicable. Please Follow Up With: Elton Lancaster MD When: 1 week
--- NOTE | 2018-07-02 10:06 | PCM.OPRPT ---
Problem List (1) Nasal congestion Status: Chronic (2) Nasal valve collapse Status: Chronic (3) Nasal turbinate hypertrophy Status: Chronic Report of Operation Date of Procedure: 07/02/18 Pre-Operative Diagnosis: 1. nasal congestion. 2. nasal septal deviation. 3. turbinate hypertrophy, right and left. 4. nasal valve collapse, right and left Post-Operative Diagnosis: 1. nasal congestion. 2. nasal septal deviation. 3. turbinate hypertrophy, right and left. 4. nasal valve collapse, right and left Surgery/Procedure Performed:: 1. rhinoplasty with major septal repair. 2. repair nasal vestibular stenosis, right and left. 3. submucous resection inferior turbinates, right and left Type of Anesthesia:: General Description of Procedure: on the day of the procedure, after appropriate informed consent was obtained, the patient was brought to the operating room and placed in supine position on the operating table. he was placed under general endotracheal anesthesia by the anesthesiologist; the endotracheal tube was secured, the eyes were taped. the nose was injected with lidocaine/epinephrine and decongested with oxymetazoline-soaked pledgets. the nose was prepped and draped in sterile fashion. an inverted v columellar incision was made with a rincon blade. this traversed into right and left marginal incisions. three point retraction was used to skeletonize the left then right lower lateral cartilages. the scroll region was skeletonized on the right and left, then the upper lateral cartilages were exposed. the medial crura were lateralized with brown forceps and the anterior septal angle was located with the bovie. a left, then right submucoperichondrial plane was developed with a fauzia elevator. this went posteriorly to the bony-cartilaginous junction and inferiorly to the maxillary crest. of note, the left plane wasnt able to be fully developed as the septum was deviated left lateral so severely that it was in contact with the piriform process of the maxilla. the right and left upper lateral cartilages were disarticulated from the septum with a #15 blade. at this time, a D knife was used for a 1cm strut of the cartilaginous septum was preserved off of the keystone area; the remainder was disarticulated from the bony cartilaginous junction and removed. this was shaped off-table in the correct fashion to perform an anterior septal reconstruction. deviated portions of the perpendicular plate of the ethmoid and vomer were removed with a gilberto laguna. this included a large left-sided septal spur. the head of the right and left inferior turbinates were injected with lidocaine/epinephrine. on the left, a #15 was used to make an incision in the head, this was dissected submucosally with a fauzia elevator, reduced using suction electrocautery, and outfractured using a boies elevator. on the right, a #15 was used to make an incision in the head, this was dissected submucosally with a fauzia elevator, reduced using suction electrocautery, and outfractured using a boies elevator. the superior portion of the anterior septal recon graft was placed as an internal digital media representative graft on the left side and sutured into place with 4-0 PDS. the inferior portion of the graft was sutured to the maxillary crest periosteum with 4-0 PDS. a 10x2mm internal digital media representative graft was fashioned from septum and placed as a right internal digital media representative graft with 4-0 PDS. numerous quilting sutures were used to reapproximate the septum, several incorporating the garret-septum. the inverted V columellar incision was closed with 7-0 vicryl; the marginal incisions with 4-0 chromic. petersen splints were sutured into place. the appropriate pereira were made on the right then left regarding the latera implant system. the trocar was loaded and a double pronged skin hook was used to zabrina the right ala. the trocar was inserted into the vestibular skin and advanced deep to the skin and soft tissue envelope. the implant was deployed without any issues. the trocar was loaded and a double pronged skin hook was used to zabrina the left ala. the trocar was inserted into the vestibular skin and advanced deep to the skin and soft tissue envelope. the implant was deployed without any issues. a dorsal nasal splint was placed. an orogastric tube was inserted and gastric/pharyngeal contents were evacuated. the patient was awoken from anesthesia and transferred to the PACU in stabe condition. - Admit VTE Documentation VTE Mechan Device Prophylaxis: SCD's
--- NOTE | 2018-07-02 10:09 | OP.PCM_ITS ---
Problem List (1) Nasal congestion Status: Chronic (2) Nasal valve collapse Status: Chronic (3) Nasal turbinate hypertrophy Status: Chronic Report of Operation Date of Procedure: 07/02/18 Pre-Operative Diagnosis: 1. nasal congestion. 2. nasal septal deviation. 3. turbinate hypertrophy, right and left. 4. nasal valve collapse, right and left Post-Operative Diagnosis: 1. nasal congestion. 2. nasal septal deviation. 3. turbinate hypertrophy, right and left. 4. nasal valve collapse, right and left Surgery/Procedure Performed:: 1. rhinoplasty with major septal repair. 2. repair nasal vestibular stenosis, right and left. 3. submucous resection inferior turbinates, right and left Type of Anesthesia:: General Description of Procedure: on the day of the procedure, after appropriate informed consent was obtained, the patient was brought to the operating room and placed in supine position on the operating table. he was placed under general endotracheal anesthesia by the anesthesiologist; the endotracheal tube was secured, the eyes were taped. the nose was injected with lidocaine/epinephrine and decongested with oxymetazoline- soaked pledgets. the nose was prepped and draped in sterile fashion. an inverted v columellar incision was made with a qawalangin blade. this traversed into right and left marginal incisions. three point retraction was used to skeletonize the left then right lower lateral cartilages. the scroll region was skeletonized on the right and left, then the upper lateral cartilages were exposed. the medial crura were lateralized with brown forceps and the anterior septal angle was located with the bovie. a left, then right submucoperich ondrial plane was developed with a fauzia elevator. this went posteriorly to the bony-cartilaginous junction and inferiorly to the maxillary crest. of note, the left plane wasnt able to be fully developed as the septum was deviated left lateral so severely that it was in contact with the piriform process of the maxilla. the right and left upper lateral cartilages were disarticulated from the septum with a #15 blade. at this time, a D knife was used for a 1cm strut of the cartilaginous septum was preserved off of the keystone area; the remainder was disarticulated from the bony cartilaginous junction and removed. this was shaped off-table in the correct fashion to perform an anterior septal reconstruction. deviated portions of the perpendicular plate of the ethmoid and vomer were removed with a gilberto laguna. this included a large left-sided septal spur. the head of the right and left inferior turbinates were injected with lidocaine/epinephrine. on the left, a #15 was used to make an incision in the head, this was dissected submucosally with a fauzia elevator, reduced using suction electrocautery, and outfractured using a boies elevator. on the right, a #15 was used to make an incision in the head, this was dissected submucosally with a fauzia elevator, reduced using suction electrocautery, and outfractured using a boies elevator. the superior portion of the anterior septal recon graft was placed as an internal director religious education graft on the left side and sutured into place with 4-0 PDS. the inferior portion of the graft was sutured to the maxillary crest periosteum with 4-0 PDS. a 10x2mm internal director religious education graft was fashioned from septum and placed as a right internal director religious education graft with 4-0 PDS. numerous quilting sutures were used to reapproximate the septum, several incorporating the garret- septum. the inverted V columellar incision was closed with 7-0 vicryl; the marginal incisions with 4-0 chromic. petersen splints were sutured into place. the appropriate pereira were made on the right then left regarding the latera implant system. the trocar was loaded and a double pronged skin hook was used to zabrina the right ala. the trocar was inserted into the vestibular skin and advanced deep to the skin and soft tissue envelope. the implant was deployed without any issues. the trocar was loaded and a double pronged skin hook was used to zabrina the left ala. the trocar was inserted into the vestibular skin and advanced deep to the skin and soft tissue envelope. the implant was deployed without any issues. a dorsal nasal splint was placed. an orogastric tube was inserted and gastric/pharyngeal contents were evacuated. the patient was awoken from anesthesia and transferred to the PACU in stabe condition. - Admit VTE Documentation VTE Mechan Device Prophylaxis: SCD's
[2018-07-02] MEDS: Oxymetazoline 0.05% 1 SPRAY SPRAY.BTL 15 SPRAY ×2 (10:25→11:51)
[2018-07-02] MEDS: Mupirocin Ointment 22gm Tube 1 APPLIC (11:57)
[2018-07-02 12:46] VITALS: BP 106/84; BP 128/89; PULSE 73; RESP 18; TEMP 36.2; O2SAT 92
[2018-07-02 13:00] VITALS: BP 112/78; BP 128/89; PULSE 68; RESP 18; O2SAT 93
[2018-07-02 13:15] VITALS: BP 102/77; BP 128/89; PULSE 71; RESP 16; O2SAT 95
[2018-07-02 13:18] VITALS: BP 107/83; BP 128/89; PULSE 70; RESP 16; TEMP 36.2; O2SAT 96
[2018-07-02] MEDS: HYDROcodone Bitartrate/Apap 5/325 Tablet PO (13:47)
[2018-07-02 14:08] VITALS: BP 128/89; BP 91/54; PULSE 94; RESP 18; TEMP 36.4; O2SAT 94
--- OUTSIDE RECORDS SUMMARY | 2018-08-13 21:34 | XMS RPT_ITS ---
:1970 Author Organization OHIP Support Name Relationship Address Phone REYNA ZEPEDA Unavailable [address] + [place] [address] UE Unavailable Unavailable Unavailable ZEPEDA, REYNA Unavailable [address] + [place] [address] UE Unavailable Unavailable Unavailable ZEPEDA, REYNA Unavailable [address] + [place] [address] UE Unavailable Unavailable Unavailable ZEPEDA, REYNA Unavailable [address] + [place] [address] UE Unavailable Unavailable Unavailable ZEPEDA, REYNA Unavailable [address] + [place] [address] UE Unavailable Unavailable Unavailable ZEPEDA, REYNA Unavailable [address] + [place] [address] UE Unavailable Unavailable Unavailable ZEPEDA, REYNA Unavailable [address] + [place] [address] UE Unavailable Unavailable Unavailable ZEPEDA, REYNA Unavailable [address] + [place] [address] UE Unavailable Unavailable Unavailable ZEPEDA, REYNA Unavailable [address] + [place] [address] UE Unavailable Unavailable Unavailable ZEPEDA, REYNA Unavailable [address] + [place] [address] UE Unavailable Unavailable Unavailable ZEPEDA, REYNA Unavailable [address] + [place] [address] UE Unavailable Unavailable Unavailable ZEPEDA, REYNA Unavailable [address] + [place] [address] UE Unavailable Unavailable Unavailable ZEPEDAREJI ALTMANEN Unavailable [address] + [place] [address] UE Unavailable Unavailable Unavailable ZEPEDA REYNA Unavailable [address] + [place] [address] UE Unavailable Unavailable Unavailable Care Team Providers Name Role Phone PERRY DUNN Attending Unavailable PERRY DUNN Referring Unavailable SWAPNILPERRY Referring Un[facility]ending Un[facility] Unavailable Isidro Ruiz Attending Unavailable Chinedu Lomax Admitting Unavailable [facility] Unavailable [place] [place] Admitting Unavailable [place] [place] Attending Unavailable Papi Potter Consulting Unavailable [place] [place] Admitting Unavailable [place] [place] Attending Unavailable [facility] Unavailable [place] [place] Consulting Unavailable [place] [place] Admitting Unavailable Papi Potter Attending Unavailable [facility] Unavailable Papi Potter Consulting Unavailable [place] [place] Consulting Unavailable [place], [place] Admitting Unavailable Papi Potter Attending Unavailable [facility] Unavailable Papi Potter Consulting Unavailable [place] [place] Consulting Unavailable [place] [place] Admitting Unavailable Cristiano Chance Attending Unavailable [facility] Unavailable Papi Potter Consulting Unavailable [facility] [place] Consulting Unavailable Rosalind Pina Attending Unavailable Papi Potter Attending Unavailable [facility] Perry Referring Unavailable [facility] Unavailable [facility] Unavailable Susan Daly Attending Unavailable Elton Lancaster Attending Unavailable Elton Lancaster Referring Unavailable [facility] Unavailable Hanging RockPerry Attending Unavailable [facility] Perry Referring Unavailable [facility] Unavailable Elton Lancaster Attending Unavailable Anisha Elton Referring Unavailable [facility] Unavailable Papi Potter Consulting Unavailable Papi Potter Attending Unavailable [facility] Perry Referring Unavailable Toño Berg Attending Unavailable Elton Lancaster Referring Unavailable PROBLEMS PROBLEMS DATE TYPE CONDITION / CODE ATTENDING STATUS SOURCE 07/02/2018 Unknown R09.81 - Nasal [place], Active [place] congestion / [place] [facility] R09.81(ICD-10) Hospital Repository 07/11/2018 Unknown R94.31 - Abnormal Toño Berg Active [place] electrocardiogram Community [ECG] [EKG] / Hospital R94.31(ICD-10) Repository 06/24/2018 Unknown E78.5 - Papi Potter Active [place] Hyperlipidemia, Community unspecified / Hospital E78.5(ICD-10) Repository 06/24/2018 Unknown I25.2 - Old myocardial Papi Potter Active [place] infarction / Community I25.2(ICD-10) Hospital Repository 06/24/2018 Unknown Z95.5 - Presence of Papi Potter Active [place] coronary angioplasty Community implant and graft / Hospital Z95.5(ICD-10) Repository 06/24/2018 Unknown I25.10 - Papi Potter Active [place] Atherosclerotic heart Community disease of [facility] coronary artery Repository without angina pectoris / I25.10(ICD-10) 07/15/2018 Unknown M51.37 - Other Perry Dunn Active [place] 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, [facility] lumbosacral region / Repository M51.37(ICD-10) 06/16/2016 Active Chronic viral NA Active [place] hepatitis C / Clinic Main B18.2(ICD-10) [place] Repository 03/14/2016 Active Mixed hyperlipidemia / NA Active [place] E78.2(ICD-10) Clinic Main [place] Repository 02/22/2018 Active Cervicalgia / NA Active [place] M54.2(ICD-10) [facility] Main [place] Repository 02/22/2018 Active Headache / R51(ICD-10) NA Active [facility] Main [place] Repository PROCEDURES PROCEDURES No Procedure Records FoundRESULTS RESULTS 12 LEAD ELECTROCARDIOGRAM Observed: 07/05/2018 Status: F Source: [place] 9:20 AM [facility] HOSPITAL REPOSITORY [facility] Cardiovascular Services [address] [place] [address] 12 Lead EKG 06/28/18 0910 MR#: [id number] Acct: [id number] Name: KATHIE FULLER Rep #: [id number] : 1970 47 From: Toño Berg MD Attending Dr: Pito Lancaster MD Status: DEP [facility] Ordering Dr: Eltno Lancaster MD Date: 06/28/18 Location: [facility] Sex: M C Admitted: Test Reason : PREOP Blood Pressure : / mmHG Vent. Rate : 077 BPM Atrial Rate : 077 BPM P-R Int : 172 ms QRS Dur : 088 ms QT Int : 382 ms P-R-T Axes : 039 -15 003 degrees QTc Int : 432 ms Normal sinus rhythm Inferior infarct , age undetermined Abnormal ECG Confirmed by TOÑO BERG MD ([id number]), commercial production editor VICTORIA HZU ([id number]) on 06/28/2018 2:58:13 PM Referred By: Lorenzo Lancaster Confirmed By:TOÑO BERG MD 06/28/18 1458 Date Toño Berg MD CC: Pito Lancaster MD; Perry Dunn MD Signed OPERATIVE REPORT Observed: 07/02/2018 Status: F Source: [place] 2:26 PM [facility] RE[facility] Medical Records Department [address] [place] [id number] Operative Report 07/02/18 1006 MR#: [id number] Acct: [id number] Name: KATHIE FULLER Rep #: [id number] : 1970 47 From: [place]ton Lancaster MD PCP: Perry Dunn MD Status: [facility] Location: [facility] Problem List (1) Nasal congestion Status: Chronic (2) Nasal valve collapse Status: Chronic (3) Nasal turbinate hypertrophy Status: Chronic Report of Operation Date of Procedure: 07/02/18 Pre-Operative Diagnosis: 1. nasal congestion. 2. nasal septal deviation. 3. turbinate hypertrophy, right and left. 4. nasal valve collapse, right and left Post-Operative Diagnosis: 1. nasal congestion. 2. nasal septal deviation. 3. turbinate hypertrophy, right and left. 4. nasal valve collapse, right and left Surgery/Procedure Performed:: 1. rhinoplasty with major septal repair. 2. repair nasal vestibular stenosis, right and left. 3. submucous resection inferior turbinates, right and left Type of Anesthesia:: General Description of Procedure: on the day of the procedure, after appropriate informed consent was obtained, the patient was brought to the operating room and placed in supine position on the operating table. he was placed under general endotracheal anesthesia by the anesthesiologist; the endotracheal tube was secured, the eyes were taped. the nose was injected with lidocaine/epinephrine and decongested with oxymetazoline-soaked pledgets. the nose was prepped and draped in sterile fashion. an inverted v columellar incision was made with a egegik blade. this traversed into right and left marginal incisions. three point retraction was used to skeletonize the left then right lower lateral cartilages. the scroll region was skeletonized on the right and left, then the upper lateral cartilages were exposed. the medial crura were lateralized with brown forceps and the anterior septal angle was located with the bovie. a left, then right submucoperichondrial plane was developed with a fauzia elevator. this went posteriorly to the bony-cartilaginous junction and inferiorly to the maxillary crest. of note, the left plane wasnt able to be fully developed as the septum was deviated left lateral so severely that it was in contact with the piriform process of the maxilla. the right and left upper lateral cartilages were disarticulated from the septum with a #15 blade. at this time, a D knife was used for a 1cm strut of the cartilaginous septum was preserved off of the keystone area; the remainder was disarticulated from the bony cartilaginous junction and removed. this was shaped off-table in the correct fashion to perform an anterior septal reconstruction. deviated portions of the perpendicular plate of the ethmoid and vomer were removed with a gilberto laguna. this included a large left-sided septal spur. the head of the right and left inferior turbinates were injected with lidocaine/epinephrine. on the left, a #15 was used to make an incision in the head, this was dissected submucosally with a fauzia elevator, reduced using suction electrocautery, and outfractured using a boies elevator. on the right, a #15 was used to make an incision in the head, this was dissected submucosally with a fauzia elevator, reduced using suction electrocautery, and outfractured using a boies elevator. the superior portion of the anterior septal recon graft was placed as an internal section 8 property manager graft on the left side and sutured into place with 4-0 PDS. the inferior portion of the graft was sutured to the maxillary crest periosteum with 4-0 PDS. a 10x2mm internal section 8 property manager graft was fashioned from septum and placed as a right internal section 8 property manager graft with 4-0 PDS. numerous quilting sutures were used to reapproximate the septum, several incorporating the garret-septum. the inverted V columellar incision was closed with 7-0 vicryl; the marginal incisions with 4-0 chromic. petersen splints were sutured into place. the appropriate pereira were made on the right then left regarding the latera implant system. the trocar was loaded and a double pronged skin hook was used to zabrina the right ala. the trocar was inserted into the vestibular skin and advanced deep to the skin and soft tissue envelope. the implant was deployed without any issues. the trocar was loaded and a double pronged skin hook was used to zabrina the left ala. the trocar was inserted into the vestibular skin and advanced deep to the skin and soft tissue envelope. the implant was deployed without any issues. a dorsal nasal splint was placed. an orogastric tube was inserted and gastric/pharyngeal contents were evacuated. the patient was awoken from anesthesia and transferred to the PACU in stabe condition. - Admit VTE Documentation VTE Mechan Device Prophylaxis: SCD's 07/02/18 1426 <Electronically signed by Elton Lancaster MD> Date Elton Lancaster MD CC: Pito Lancaster MD; Papi Potter MD; Perry Dunn MD Signed DISCHARGE INSTRUCTION Observed: 07/02/2018 Status: F Source: [place] 10:06 AM [facility] RE[facility]IT[facility] Medical Records Department [address] [place] [address] Instructions for Home/Discharge Instructions 07/02/18 1005 MR#: [id number] Acct: [id number] Name: JONNYKATHIE Kimberly Rep #: [id number] : 1970 47 From: Elton Lancaster MD PCP: Perry Dunn MD Status: REG [facility] You will use the following diet at home:: No restrictions Your food should be the consistency of: Regular Discharge Activity: Return to Normal Activity, May not drive while taking narcotic pain medications. Call your doctor if your incision/area has: Sudden Increased Bleeding Additional Dressing/Incision Instructions:: saline to nose 6 times/day. mupirocin ointment to both nostrils and incision twice daily. sleep with head of bed elevated. do not get the bridge of the nose wet - except, the morning of your follow up appointment, get it very wet in the shower. Allergies/Adverse Reactions: Allergies hydrochlorothiazide Adverse Reaction (Severe, Verified 06/25/18 09:20) Pt got very dizzy, dehydrated Medications to take at Discharge Aspirin [Aspirin, Baby] 81 mg PO DAILY@0800 #30 tab.chew 10/11/17 Sertraline HCl [Zoloft] 100 mg PO DAILY #30 tab 10/11/17 Gabapentin [Neurontin] 300 mg PO TID 03/04/18 atorvastatin 40 mg tablet 40 mg PO DAILY #30 tab 06/24/18 lisinopril 5 mg tablet 5 mg PO DAILY #30 tab 06/24/18 metoprolol succinate ER 25 mg tablet,extended release 24 hr 12.5 mg PO DAILY #30 tab 06/24/18 Oxycodone HCl/Acetaminophen [Percocet 5/325] 1 tab PO Q6H PRN PRN 5 Days #20 tab 07/02/18 Smz/Tmp Ds [Bactrim Ds] 1 tab PO BID #14 tab 07/02/18 The following prescriptions were given: Oxycodone HCl/Acetaminophen [Percocet 5/325] 1 tab PO Q6H PRN PRN 5 Days #20 tab PRN Reason: Pain Smz/Tmp Ds [Bactrim Ds] 1 tab PO BID #14 tab Primary Care Physician: Perry Dunn MD [Primary Care Provider] - Test Results: Test results from this visit will be discussed in further detail at your follow-up appointment, if applicable. Please Follow Up With: Elton Lancaster MD When: 1 week 07/02/18 1006 <Electronically signed by Elton Lancaster MD> Date Elton Lancaster MD CC: Papi Potter MD; Perry Dunn MD CBC-COMPLETE BLOOD CNT Collected: 06/28/2018 Status: F Source: [place] NO DIFF 8:40 AM [facility] REPOSIT[facility] TYPE CODE TESTS RESULT OUT OF RANGE REFERENCE UNITS LAB L100.1000 4.4-11.0 K/mm3 Normal WBC 7.3 LAB L100.1200 4.6-6.2 M/mm3 Normal RBC 5.30 LAB L100.1300 13.0-16.5 g/dl Normal HGB 16.4 LAB L100.1400 40-54 % Normal HCT 49.1 LAB L100.1500 80-94 fL Normal MCV 92.6 LAB L100.1600 27.0-32.0 pg Normal MCH 30.9 LAB L100.1700 32-36 g/gl Normal MCHC 33.4 LAB L100.1810 11.6-14.6 % Normal RDW CV 14.1 LAB L100.1820 35.1-43.9 fl High RDW SD 47.0 LAB L100.1900 150-450 K/mm3 Normal PLT 309 LAB L100.2000 6.2-12.0 fl Normal MPV 9.0 Performed By: #### L100.0500 #### [facility] [address] [place], [place], [address] BASIC METABOLIC Collected: 06/28/2018 Status: F Source: [place] PROFILE (BMP) 8:40 AM [facility] REPOSITORY TYPE CODE TESTS RESULT OUT OF RANGE REFERENCE UNITS LAB L501.0100 74-106 mg/dL Normal GLU 106 Result Comment: Fasting Glucose result from 100 to 125 mg/dL suggests IMPAIRED HOMEOSTASIS per A.D.A. criteria. Please note revised GLUCOSE reference range effective 2017. LAB L501.1000 7-18 mg/dL Normal BUN 14 LAB L501.1100 0.70-1.30 mg/dL Normal CREAT,SERUM 0.89 Result Comment: The validity of the calculated GFR AND GFRAA in patients over 70 years has not been determined. Clinical correlation is essential. LAB L501.1110 >60 mL/min Normal EST GFR 97 Result Comment: Non- GFR Calc LAB L501.1115 >60 mL/min Normal EST GFR - AA 117 Result Comment: GFR Calc LAB L501.1300 10-20 RATIO Normal BUN/CRE 15.7 LAB L501.2200 8.5-10.1 mg/dL CA Normal 9.3 LAB L501.5300 136-145 mmol/L NA Normal 140 LAB L501.5600 3.5-5.1 mmol/L K Normal 4.1 Result Comment: Slight Hemolysis, Result may be falsely increased. LAB L501.5900 98-107 mmol/L Normal CL 103 LAB L501.6100 21.0-32.0 mmol/L Normal CO2 24.0 LAB L501.6200 5-15 Normal GAP 13 Performed By: #### L500.2500 #### [facility] [address] [place], [address] CARDIOLOGY VISIT Observed: 06/24/2018 Status: F Source: [place] REPORT 11:57 AM [facility] RE[facility]IT[facility] [address] [place] [address] OFFICE VISIT Date of Service: 06/24/18 MR#: [id number] Acct: [id number] Name: KATHIE FULLER Rep #: [id number] : 1970 Provider: Papi Potter MD Age/Sex: 47/M Location: [facility] Status: Signed HPI HPI Chief Complaint: Routine follow-up Details: KATHIE FULLER, is a 47 M with a history of hypertension, hypercholesterolemia, old myocardial infarction status post coronary stent placement on 07/15/13. I do not have the specifics of that particular admission, but apparently the patient presented with acute coronary syndrome underwent catheterization and transferred to [facility] where I performed a PCI to LAD and POBA to DIAG#1 and #2. In addition he had a previous old posterior lateral myocardial infarction in June 2013. He apparently also has a history of nicotine dependence, smoking less than 1 pack of cigarettes per day, and recently discontinued all his medications and developed chest pain syndrome requiring admission for observation to [facility]. During that time he underwent a echocardiogram and a stress test which was negative for inducible ischemia on 10/11/17. He is now here in follow-up. Patient was restarted on his medication and he has been compliant with all medications. Since our last visit he denies any chest pain, angina, shortness of breath or dyspnea on exertion. Unfortunately continues to smoke about 1 pack/day. he has never tried Chantix, but does have a history of depression and is currently on sertraline. He is continue with his medications. Patient recently was diagnosed with a tooth abscess and was started on antibiotic therapy. Subsequent that he had some mild palpitations but they have completely resolved. He is currently doing well. In our office today's blood pressure is 120/70 pulse is 72 and regular. Physical exam is as below. His lipids as of 10/11/17 showed LDL 135 and HDL of 37. Repeat lipids are pending. Intake Vital Signs06/24/18 Height 5 ft 9 in 06/24/18 Weight: 183 lb 06/24/18 Body Mass Index (BMI) 27.0 06/24/18 Blood Pressure 120/70 Intake Visit Reasons: 6 M FU [employer] Required: No Is patient in pain?: No Allergies hydrochlorothiazide Adverse Reaction (Severe, Verified 06/24/18 11:36) Pt got very dizzy, dehydrated Medications Aspirin [Aspirin, Baby] 81 mg PO DAILY@0800 #30 tab.chew 10/11/17 [Rx Confirmed 06/24/18] Sertraline HCl [Zoloft] 100 mg PO DAILY #30 tab 10/11/17 [Rx Confirmed 06/24/18] Gabapentin [Neurontin] 300 mg TID 03/04/18 [History Confirmed 06/24/18] atorvastatin 40 mg tablet 40 mg PO DAILY #30 tab 06/24/18 [Rx Confirmed 06/24/18] lisinopril 5 mg tablet 5 mg PO DAILY #30 tab 06/24/18 [Rx Confirmed 06/24/18] metoprolol succinate ER 25 mg tablet,extended release 24 hr 12.5 mg PO DAILY #30 tab 06/24/18 [Rx Confirmed 06/24/18] [facility] Medical History Atherosclerosis of coronary artery of [place] heart without angina pectoris (Chronic) Old myocardial infarction (Chronic) Hyperlipidemia (Chronic) Hypertension (Chronic) Nicotine dependence (Chronic) Depression (Chronic) Polysubstance abuse (Chronic) Surgical History History of coronary artery stent placement (Chronic 07/15/13) Previous back surgery (Chronic) Social History Smoking Status: Current every day smoker ROS Const Const: Positive for other (Feels well); negative for fatigue, weakness, body ache, fever(s), headache(s), chills, frequent falls, night sweats, daytime sleepiness, difficulty sleeping, excessive sweating, weight gain, weight loss, increased appetite, poor appetite or anorexia Eyes Eyes: Negative for blind spots, loss of peripheral vision, transient loss of vision, blurry vision, change in vision, double vision, floaters, tunnel vision or other ENT ENT: Negative for headache(s), dizziness, hearing loss, tinnitus, Nosebleed/epistaxis, balance problems, post nasal drip, lip swelling, tongue swelling, bleeding gums, hoarseness, neck pain, dry mouth or other Cardio Chest Pain: No Palpitations: Yes (Had palpitations/hard thumping for a couple days with ATB. None since) feels like its: pounding Edema: None Muscle aches with walking: None Resp Respiratory: Positive for SOB with activity (with walking up stairs or distances) and other (still smokes 1 ppd.); negative for SOB at rest, SOB orthopnea\SOB lying down, Cough, Coughing up blood/hemoptysis, chest congestion, pain on inspiration, snoring, stridor, wheezing, crackles or paroxysmal nocturnal dyspnea GI GI: Negative nausea, vomiting, heartburn, constipation, belching, bloating, cramping, vomiting blood/hematemesis, bright, red blood in stools, black,tarry stools, loose stools, Difficulty Swallowing or other : Negative for hematuria, frequent nighttime urination/ nocturia, erectile dysfunction or abnormal vaginal bleeding Musc Musc: Negative for balance problems, muscle aches/ myalgia, muscle weakness or joint pain Skin Skin: Negative redness, non-healing lesions, rash, unusual bruising, skin ulcer, wounds, jaundice or other Neuro Neuro: Negative for weakness, headache(s), frequent falls, blurry vision, double vision, dizziness, lightheadedness, near syncope, syncope, orthostatic symptoms, confusion, memory loss, restless legs, vertigo, seizures, lack of coordination or other De Hematologic/Lymphatic: Negative for easy bleeding, easy bruising, enlarged lymph nodes or other Endo Endo: Negative for fatigue, excessive sweating, cold intolerance, heat intolerance, flushing, increased thirst/drinking, increased hunger, hair loss, hair growth or other Psych Psych: Negative for anxiety, depression, thoughts of harming anyone, thoughts of harming yourself, visual hallucinations, panic attacks or audible hallucinations Allergy Allergy/Immunology: Negative for lip swelling, Negative for tongue swelling, Negative for rash, Negative for throat swelling, Negative for hives Cardiology Exam Const Appearance: cooperative, healthy appearing and no acute distress Nutritional Appearance: well nourished Orientation: alert, oriented x3 and oriented to person Head Head: normal to inspection, atraumatic and normocephalic Nose: external nose normal Face and Sinus: face symmetric Mouth: oral mucosae normal Eyes General: appearance normal, both eyes and all related structures Eyelids: eyelids normal Conjunctivae: conjunctivae normal Pupils: PERRL and normal by confrontation EOM: EOM intact bilaterally Neck Neck: normal visual inspection and full ROM Carotids: normal carotid upstroke Chest Chest inspection: normal inspection of the chest Auscultation: Bilateral: Clear to Auscultation Cardio Palpation: normal PMI Rate: regular rate Rhythm: regular rhythm Heart sounds: S1 normal and S2 normal GI GI: normal to inspection, no hepatosplenomegaly and bowel sounds present Neuro General: alert, oriented x3, awake, CN's II-XI intact bilaterally and moves all extremities Skin Skin: no rashes or lesions noted Extremities Pulses: Normal: Right Femoral Pulse, Left Femoral Pulse, Right Dorsalis Pedis Pulse, Left Dorsalis Pedis Pulse, Right Posterior Tibial Pulse, Left Posterior Tibial Pulse, Right Radial Pulse, Left Radial Pulse Lower Extremity Edema: None: Bilateral Psych Psychological: normal affect Assessment AND Plan 1. Atherosclerosis of coronary artery of [place] heart without angina pectoris I25.10 TKG-DSJ-Qzz-Distal LAD, KARTIK-D1 and POBA-D2 07/15/13 PCI-KARTIK-Mid Cx 06/19/2013 Plan 1. Coronary artery disease: No exertional anginal symptoms at this time. His blood pressure and heart rate are well-controlled. His last stress test in October 2017 was negative for inducible ischemia. Recommend he continue his baby aspirin, lisinopril and Lopressor. Should the patient have recurrent anginal symptoms or worsening dyspnea on exertion, I would have a low threshold for repeat catheterization. Orders Orders: 2. Hyperlipidemia E78.5 Plan 2. Hyperlipidemia: We will repeat his lipid profile. Continue Lipitor. His LDL should be less than 70. Orders Orders: 3. Nicotine dependence F17.200 Plan 3. Nicotine dependence: Patient continues to smoke about 1 pack of cigarettes per day. Have strongly encouraged him to quit and to pick a quit date. I am not sure whether he is a good candidate for Chantix given his history of depression and ongoing sertraline therapy. Patient agrees to try to quit. 4. Return office in 6 months. This note was generated using a voice recognition system and there may be incorrect words, spelling or punctuation that were not noted when reviewing the office note prior to saving. Plan Detail Other Orders Orders: Other Medications New: Refilled: Follow Up +6M (Tariq) Coding Level of Care Code Off vis,est,level 3 Diagnoses Atherosclerosis of coronary artery of [place] heart without angina pectoris I25.10 Hyperlipidemia E78.5 Nicotine dependence F17.200 Coding Level of Care Code Off vis,est,level 3 Diagnoses Atherosclerosis of coronary artery of [place] heart without angina pectoris I25.10 Hyperlipidemia E78.5 Nicotine dependence F17.200 06/24/18 1157 <Electronically signed by Papi Potter MD> Date Papi Potter MD Cosign Signature: Date (if applicable) CC: Perry Dunn MD PROGRESS Observed: 06/18/2018 Status: COMPLETED Source: [place] 3:15 PM [facility] REPOSITORY HNO ID: [id number] Author: Gigi Lovell Service: (none) Author Type: Nurse Practitioner Type: Progress Notes Filed: 06/18/2018 3:51 PM Note Text: Subjective HPI HPI Kathie Fuller is a 47 year old male who presents today for CC of tooth pain. This started 3 days ago. Has tried tylenol with mild relief. Symptoms are worsened by eating. Risk factors hx of poor dental health. .Patient presents with: Dental Problem: upper right side tooth pain x 3 days PAST MEDICAL HISTORY Diagnosis Date - CAD (coronary artery disease) had FL at one point. - Hyperlipidemia - Spinal stenosis of lumbar region -This section reviewed with patient, no changes PAST SURGICAL HISTORY Procedure Laterality Date - LOW BACK DISK SURGERY 2004 - PAST SURGICAL HISTORY OF [facility] ALLERGIES Hydrochlorothiazide -This section reviewed with patient, no changes MEDICATIONS atorvastatin (LIPITOR) 40 mg tablet Take 1.5 tablets by mouth once daily. gabapentin (NEURONTIN) 300 mg capsule Take 1 capsule by mouth three times daily for 90 days. sertraline (ZOLOFT) 100 mg tablet Take 1.5 tablets by mouth once daily. aspirin, enteric coated (ASPIRIN, ENTERIC COATED) 81 mg EC tablet Take 1 tablet by mouth once daily. FAMILY HISTORY Problem Relation Age of Onset - Hypertension Mother - COPD Mother - None Brother - None Brother - Heart Maternal Grandmother - Heart Maternal Grandfather - Heart Paternal Grandmother - Heart Paternal Grandfather - None Daughter - None Son - Hypertension Father Social History Substance Use Topics - Smoking status: Current Every Day Smoker Packs/day: 1.00 Years: 25.00 Types: Cigarettes - Smokeless tobacco: Never Used - Alcohol use No -This section reviewed with patient, no changes Review of Systems Constitutional: Negative for chills, fever and weight loss. HENT: Positive for congestion. Negative for ear pain. Respiratory: Negative for cough, shortness of breath and wheezing. Musculoskeletal: Negative for neck pain. Objective Blood pressure 136/82, pulse 74, temperature 36.8 ?C (98.3 ?F), temperature source Tympanic, resp. rate 16, weight 83 kg (183 lb). Component Latest Ref Rng AND Units 02/22/2018 Protein, Total 6.3 - 8.0 g/dL 7.5 Albumin 3.9 - 4.9 g/dL 4.4 Calcium 8.5 - 10.2 mg/dL 9.9 Bilirubin, Total 0.2 - 1.3 mg/dL 0.4 Alkaline Phosphatase 36 - 108 U/L 78 AST 14 - 40 U/L 27 Glucose 74 - 99 mg/dL 85 BUN 9 - 24 mg/dL 13 Creatinine 0.73 - 1.22 mg/dL 0.71 (L) Sodium 136 - 144 mmol/L 138 Potassium 3.7 - 5.1 mmol/L 4.0 Chloride 97 - 105 mmol/L 103 CO2 22 - 30 mmol/L 24 Anion Gap 9 - 18 mmol/L 11 ALT 10 - 54 U/L 40 eGFR- >60 eGFR-All Other Races . >60 Physical Exam Constitutional: He is oriented to person, place, and time and well-developed, well-nourished, and in no distress. Non-toxic appearance. He does not have a sickly appearance. No distress. HENT: Head: Normocephalic and atraumatic. Right Ear: Hearing, tympanic membrane, external ear and ear canal normal. Left Ear: Hearing, tympanic membrane, external ear and ear canal normal. Nose: Nose normal. Mouth/Throat: Uvula is midline, oropharynx is clear and moist and mucous membranes are normal. Eyes: Pupils are equal, round, and reactive to light. Conjunctivae and lids are normal. Right eye exhibits no discharge. Left eye exhibits no discharge. No scleral icterus. Neck: Trachea normal and normal range of motion. Neck supple. Cardiovascular: Normal rate, regular rhythm and normal heart sounds. Pulmonary/Chest: Effort normal and breath sounds normal. Lymphadenopathy: He has no cervical adenopathy. Neurological: He is alert and oriented to person, place, and time. Skin: No rash noted. He is not diaphoretic. ASSESSMENT/PLAN: 1. Dental infection - ICD9: 522.4, ICD10: K04.7 Take medication as ordered See dentist maría Follow up if signs of infection worsen -no visible abscess, concerns are raised with amount of swelling and severity of pain - AMOXICILLIN 875 MG-POTASSIUM CLAVULANATE 125 MG TABLET Prescription instructions reviewed with patient as applicable. Patient advised if symptoms do not improve or if symptoms worsen sooner, to contact the office for further evaluation by their primary care physician. Potential red flag symptoms discussed with the patient. Reviewed appropriate action plan to take if red flag symptoms occur. Patient agreeable to treatment plan. Gigi Lovell APRN.BOBO CNOV Observed: 06/18/2018 Status: COMPLETED Source: [place] 3:15 PM [facility] REPOSITORY Office Visit ([facility]STR) KATHIE FULLER ([id number]) 1970 M Date Time Provider Department 06/18/18 3:15 PM GIGI LOVELL (BOBO) [facility] During your visit today, we recorded the following information about you: Temperature Pulse Respiration Blood pressure 98.3 degrees 74/minute 16/minute 136/82 Weight 83 kg Gigi Lovell APRN.CNP 06/18/2018 3:51 PM Signed Subjective HPI HPI Kathie Fuller is a 47 year old male who presents today for CC of tooth pain. This started 3 days ago. Has tried tylenol with mild relief. Symptoms are worsened by eating. Risk factors hx of poor dental health. .Patient presents with: Dental Problem: upper right side tooth pain x 3 days PAST MEDICAL HISTORY Diagnosis Date - CAD (coronary artery disease) had FL at one point. - Hyperlipidemia - Spinal stenosis of lumbar region -This section reviewed with patient, no changes PAST SURGICAL HISTORY Procedure Laterality Date - LOW BACK DISK SURGERY 2004 - PAST SURGICAL HISTORY OF [facility] ALLERGIES Hydrochlorothiazide -This section reviewed with patient, no changes MEDICATIONS atorvastatin (LIPITOR) 40 mg tablet Take 1.5 tablets by mouth once daily. gabapentin (NEURONTIN) 300 mg capsule Take 1 capsule by mouth three times daily for 90 days. sertraline (ZOLOFT) 100 mg tablet Take 1.5 tablets by mouth once daily. aspirin, enteric coated (ASPIRIN, ENTERIC COATED) 81 mg EC tablet Take 1 tablet by mouth once daily. FAMILY HISTORY Problem Relation Age of Onset - Hypertension Mother - COPD Mother - None Brother - None Brother - Heart Maternal Grandmother - Heart Maternal Grandfather - Heart Paternal Grandmother - Heart Paternal Grandfather - None Daughter - None Son - Hypertension Father Social History Substance Use Topics - Smoking status: Current Every Day Smoker Packs/day: 1.00 Years: 25.00 Types: Cigarettes - Smokeless tobacco: Never Used - Alcohol use No -This section reviewed with patient, no changes Review of Systems Constitutional: Negative for chills, fever and weight loss. HENT: Positive for congestion. Negative for ear pain. Respiratory: Negative for cough, shortness of breath and wheezing. Musculoskeletal: Negative for neck pain. Objective Blood pressure 136/82, pulse 74, temperature 36.8 ?C (98.3 ?F), temperature source Tympanic, resp. rate 16, weight 83 kg (183 lb). Component Latest Ref Rng AND Units 02/22/2018 Protein, Total 6.3 - 8.0 g/dL 7.5 Albumin 3.9 - 4.9 g/dL 4.4 Calcium 8.5 - 10.2 mg/dL 9.9 Bilirubin, Total 0.2 - 1.3 mg/dL 0.4 Alkaline Phosphatase 36 - 108 U/L 78 AST 14 - 40 U/L 27 Glucose 74 - 99 mg/dL 85 BUN 9 - 24 mg/dL 13 Creatinine 0.73 - 1.22 mg/dL 0.71 (L) Sodium 136 - 144 mmol/L 138 Potassium 3.7 - 5.1 mmol/L 4.0 Chloride 97 - 105 mmol/L 103 CO2 22 - 30 mmol/L 24 Anion Gap 9 - 18 mmol/L 11 ALT 10 - 54 U/L 40 eGFR- >60 eGFR-All Other Races . >60 Physical Exam Constitutional: He is oriented to person, place, and time and well-developed, well-nourished, and in no distress. Non-toxic appearance. He does not have a sickly appearance. No distress. HENT: Head: Normocephalic and atraumatic. Right Ear: Hearing, tympanic membrane, external ear and ear canal normal. Left Ear: Hearing, tympanic membrane, external ear and ear canal normal. Nose: Nose normal. Mouth/Throat: Uvula is midline, oropharynx is clear and moist and mucous membranes are normal. Eyes: Pupils are equal, round, and reactive to light. Conjunctivae and lids are normal. Right eye exhibits no discharge. Left eye exhibits no discharge. No scleral icterus. Neck: Trachea normal and normal range of motion. Neck supple. Cardiovascular: Normal rate, regular rhythm and normal heart sounds. Pulmonary/Chest: Effort normal and breath sounds normal. Lymphadenopathy: He has no cervical adenopathy. Neurological: He is alert and oriented to person, place, and time. Skin: No rash noted. He is not diaphoretic. ASSESSMENT/PLAN: 1. Dental infection - ICD9: 522.4, ICD10: K04.7 Take medication as ordered See dentist maría Follow up if signs of infection worsen -no visible abscess, concerns are raised with amount of swelling and severity of pain - AMOXICILLIN 875 MG-POTASSIUM CLAVULANATE 125 MG TABLET Prescription instructions reviewed with patient as applicable. Patient advised if symptoms do not improve or if symptoms worsen sooner, to contact the office for further evaluation by their primary care physician. Potential red flag symptoms discussed with the patient. Reviewed appropriate action plan to take if red flag symptoms occur. Patient agreeable to treatment plan. GRIECL Tucker APRN.CNP 06/18/2018 3:32 PM Signed ASSESSMENT/PLAN: 1. Dental infection - ICD9: 522.4, ICD10: K04.7 Take medication as ordered See dentist maría Follow up if signs of infection worsen - AMOXICILLIN 875 MG-POTASSIUM CLAVULANATE 125 MG TABLET Referring Provider: SELF [[id number]] Allergies As of Date: 06/18/2018 Noted Allergy Reaction HYDROCHLOROTHIAZIDE 01/13/2011 14 - Other: See Comments Comments: Caused headaches Date Reviewed: 06/18/2018 Reviewed by: Gigi (Bobo) - Fully Assessed Reason for Visit: Dental Problem [31] Cmt: upper right side tooth pain x 3 days Primary Visit Diagnosis:Dental infection [K04.7] Order(s):amoxicillin-clavulanic acid (AUGMENTIN) 875-125 mg per tabletTake 1 tablet by mouth twice daily for 10 days.Disp: 20 tabletRfl: 0 Prescriptions as of 06/18/2018 Sig: ATORVASTATIN 40 MG TABLET Take 1.5 tablets by mouth onc* GABAPENTIN 300 MG CAPSULE Take 1 capsule by mouth three* SERTRALINE 100 MG TABLET Take 1.5 tablets by mouth onc* ASPIRIN 81 MG TABLET,DELAYED * Take 1 tablet by mouth once d* AMOXICILLIN 875 MG-POTASSIUM * Take 1 tablet by mouth twice * Problem List As Of Date 06/18/2018 Noted Resolved Sciatica [M54.30] INVALID FOR*03/14/2016 Lumbago [M54.5] INVALID FOR*03/14/2016 Displacement of lumbar intervertebral disc with*INVALID FOR*03/14/2016 Degeneration of lumbar or lumbosacral intervert*INVALID FOR* Chronic pain [G89.29] INVALID FOR*03/14/2016 Tobacco abuse [Z72.0] INVALID FOR* Mixed hyperlipidemia [E78.2] INVALID FOR* Substance abuse (HCC) [F19.10] INVALID FOR*02/08/2018 More... Atherosclerosis of coronary artery of [place] he*INVALID FOR* More... Chronic hepatitis C without hepatic coma (HCC) *INVALID FOR* History of coronary artery stent placement [Z95*INVALID FOR* History of substance abuse [Z87.898] INVALID FOR* Other instructions from your clinician: ASSESSMENT/PLAN: 1. Dental infection - ICD9: 522.4, ICD10: K04.7 Take medication as ordered See dentist maría Follow up if signs of infection worsen - AMOXICILLIN 875 MG-POTASSIUM CLAVULANATE 125 MG TABLET Prescriptions ordered this encounter Disp Refills Start End AMOXICILLIN 875 MG-POTASSIUM CLAVULA* 20 t* 0 06/18/2018 06/28/2018 Route: ORAL Sig: Take 1 tablet by mouth twice daily for 10 days. Encounter Status:Closed by GIGI LOVELL CNP on 06/18/18 OT FUNCTIONAL CAPACITY Observed: 06/12/2018 Status: F Source: [facility] 3:49 PM [facility] [place] [address] Fax REHABILITATION SERVICES INITIAL EVALUATION MR#: [id number] Acct: [id number] Name: KATHIE FULLER Rep #: [id number] : 1970 47 From: Camille Dior Referring Dr.: Perry Dunn MD Status: REG RCR Insurance: [facility] Eval Date: SELF PAY INSURANCE HP OT Functional Capacity Eval - Task Lift Floor (Occasional 1-33% of Day): 30 lbs Floor (Frequent 34-66% of Day): 15 lbs Floor (Constant 67-100% of Day): 6 lbs Floor PDL: Light Knee (Occasional 1-33% of Day): 25 lb Knee (Frequent 34-66% of Day): 15 lbs Knee (Constant 67-100% of Day): 6 lbs Knee PDL: Light Waist (Occasional 1-33% of Day): 30 lbs Waist (Frequent 34-66% of Day): 15 lbs Waist (Constant 67-100% of Day): 6 lbs Waist PDL: Light Shoulder (Occasional 1-33% of Day): 30 lbs Shoulder (Frequent 34-66% of Day): 15 lbs Shoulder (Constant 67-100% of Day): 6 lbs Shoulder PDL: Light Overhead (Occasional 1-33% of Day): 30 lbs Overhead (Frequent 34-66% of Day): 15 lbs Overhead (Constant 67-100% of Day): 6 lbs Overhead PDL: Light Comments: Scored in the light category for material handling. Increased compensations and mechanical deficits noted with reaching light medium category weight limit of 35 lbs. - Work Activity/Posture Bending: Occasional Ability (1-33% of day) Squatting: Occasional Ability (1-33% of day) Kneeling: Occasional Ability (1-33% of day) Reaching out: Frequent Ability (34-66% of day) Reaching up: Frequent Ability (34-66% of day) Walking: Occasional Ability (1-33% of day) Standing: Occasional Ability (1-33% of day) - Reference Duration Sedentary Sedentary Light Light Light Medium Medium Medium Heavy V reena Heavy Heavy - Patient Information Height: 1.78 m Weight:: 82.1 kg Hand Dominance: R BP (Medication Use/Usual Values per pt report): Yes - Medical History Medical History Including Restrictions: Per Pt. report no medical restrictions given to him by physician within last year. No additional paperwork brought by Pt. to session regarding restrictions. - Diagnoses Diagnoses: Current: Referred for FCE due to Lumbar DDD. PMHx: HTN, h/o FL (2012), CAD, hyperlipidemia. Noted past surgery for spinal stenosis in 2004. Unable to report what type of spinal surgery he had completed like if he underwent a laminectomy or if or spinal fusion was performed. - Symptoms Symptoms: Pt. noted that his main symptom is sharp burning like pain radiating down my R leg. Explained that he been consistent for about 13 years. Notes when standing for periods of time he explained his hips start to ache. - Pain Pain: Pt. completed Anne Marie pain questionnaire upon arrival. A score of 30 or greater on the Anne Marie pain questionnaire indicates the increased risk of a Pt. having poor psychodynamics with pain reporting. Post education on pain scale he determined his pain was at 4/10. Not on pain management program. He has not had PT since 2009. Takes gabapentin 300 mg 3x daily (morning, noon, and night). Did not take prior to arrival to [facility]. Pre Pain related testing: - Pre-test Anne Marie: sum 49. - Oswestry Low Back: . Post Test: Anne Marie Pain Questionnaire: 56. Oswestry Low Back Pain: - Work History Work History: Pt. has not been employed since 2008. 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 Notes he was working 10 hour shifts five days a week with three breaks throughout that day. Explained he was allowed 2x 10 minute breaks and 1x 30 mins break. He is unable to recall how much he was able to lift but noted was required to stand during times not on break. Later in session noted that he did not last long at that job. 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 - Behavioral Behavioral: Kathie was pleasant and cooperative throughout task. Appeared to try all tasks appropriately and without getting upset with therapist for increase in symptoms. - ADLS ADLS: Pt. lives with mother in two story apartment. He has 1x step to enter with handrail. Once in apartment he has split level with bedroom and bathroom being on second floor. Explained there is about 13 steps to get upstairs with Bilateral handrail. Sleeps upstairs in bedroom. He notes he is completing all showering, dressing, and grooming tasks (i). Notes showering 3-4x week. Explained he is no longer driving. Does not complete grocery shopping with mother. Mother completes as Pt. reports pain with walking around at [employer]. Notes visits girlfriend on most weekends in which she comes to pick him up. No pets to care for at this time. - Physical Examination Physical Examination: Kathie arrived for FCE on this date of 06/06/18. The purpose of this FCE was to determine Ornelas physical ability as he would like to file for social security disability. He noted that he has not worked for last nine years post back related surgery. He follows up with Dr. Dunn every 6 weeks but is not on pain management program at this time. Resting diagnostics: Blood Pressure (BP) 118/80 mmHg. 02 97%. HR 68 ROM: Spinal alignment ROM: Lumbar flexion: Inclinometer. Lumbar: - flexion: L1 0-41 degrees. L5 0-16 degrees. - Extension: L1 0 -8 degrees. L5 0- 5 degrees. Lumbar. Goniometric testing: - Lateral leaning : R 0-15 L 0-0-19. Slums test: positive with increased pain with compeltion of task. Supine and straight leg: positive with increased pain in buttocks. Unable to complete full leg extension in supine at slow rate. Able to complete 90 degrees hip flexion with knee flexed at 90 degrees and foot in dorsiflexion/neutral. Increased pain in R LE than L LE with completion of test. Pain not much pain to low back per Pt. report but radiating pain from low back down R LE. Some tenderness noted with touch. Pain 5/10 Strength: B UE. shoulder. flexion: R 5/5, L 5/5. -empty can: Negative: Supraspinatus R 5/5, L 5/5. internal rotation: R 5/5, L 5/5. external rotation: R 5/5, L 5/5. Elbow: Flexion: R 5/5, L 5/5. extension: 4+/5, L 4+/5. Pain 5/10: Some grimace noted R LE with additional resistance added. B UE: hip flexion: R 4-/5, L 4-/5. hip adduction: R 5/5, L 5/5. hip abduction: R 5/5, L 5/5 Right Convention Manager Strength Average: 71.33 Right Convention Manager Strength Percentile: less 10th Left Convention Manager Strength Average: 85.66 Left Convention Manager Strength Percentile: less 15th Right Lateral Pinch Average: 19.33 Right Lateral Pinch Percentile: about 50th Left Lateral Pinch Average: 19.66 Left Lateral Pinch Percentile: 50th Right Tripod Pinch Average: 17.00 Right Tripod Pinch Percentile: above 25th but below 50th Left Tripod Pinch Average: 17.00 Left Tripod Pinch Percentile: approximately 50th Comments: Five Span Convention Manager Testing: Position 1 (P1): R 59, L 61. P2: R 74, L 90. P3: R 71, L 81. P4: R 70, l 82. P5: R 55, L 70 Sensation: Notes numbness and tingling in L hand. Denies numbness and tingling in B Feet. Monofilament test completed to further determine touch related sensation and any sensational related deficits. Results are as follows: R 2nd 3.22 3rd 3.22 4th 2.83 5th 2.83 thumb 3.61. L 2nd 2.83 3rd 2.83 4th 3.22 5th 2.83 thumb 3.22 Fine Motor: Fine motor control appears to be intact. Able to complete all strength related pinch testing. Completed Purdue pegboard for increased measurement of FMC and dexterity related tasks: Completed one trials of the following with 3-5 peg related practice rounds prior to complete of times task. Results are as follows: R hand: 14. - percentile: 5th. L hand: 11. - percentile: 1st. both hands: 10. - percentile: 3rd. Right + Left + Both: 35. - percentile: approximately 2nd. Assembly: 6. - percentile: 1st Balance: Completed Romberg static balance test. Completed shoes off, nondominant foot in front for tandem and Completed Romberg static balance test. Completed shoes off, nondominant foot in front for tandem and semi tandem tasks. Results as follows: Eye Open: - feet together: 60 seconds. - semi tandem: 60 seconds. - tandem: 60 seconds. Eyes Closed: - feet together: 60 seconds. - semi tandem: 60 seconds. - tandem: 30 seconds. Single leg test: eyes open: - R 25 seconds need for foot down for less than 2 seconds and able to continue to 51 seconds. L: able to hold 60 second s. Eyes closed. - R 11 s. -L 9 s. Static balance with use of vision is intact based on performance on static balance tasks. For higher level balance, example off the ground balance, deficits were noted with vision occluded. Functional Gait Assessment (FGA): 1. gait functional surface- moderate. 2. change in gait speed- mild. 3. gait with horizontal head turn - moderate. 4. gait with vertical head turns - moderate. 5. gait and pivot turn - normal. 6. step over obstacle: mild. 7. Gait with narrow base of support - mild. 8. Gait with eyes closed- mild. 9. Ambulating backwards- normal. 10. steps- mild. Total: . Results of FGA indicated performance is two standard deviations below peer-based results for age range. Dynamic is below peer based normative data. - Non Material Handling Activities Bendinx, 10x (25 seconds to complete), 1x 10 fast (20 seconds to complete). Able to complete 75% of full bend. Completed with minimal thoracic flexion. No increased in heart rate noted. Pain behaviors observed of facial grimace and hands on hips post completion of tasks. Pain reported at 4/10. HR 95. 02: 99% Squattinx, 10x 2 seconds, 10x fasters (17 seconds). Completed with ability to complete about 50% to then full squat as task continued. Compensations noted of holding breath. Increase in heart rate observed from previous task. Some pain behaviors noted of holding breath and grimace. Need for short standing break prior to continuing. Pt. rated pain at 4/10. HR 112 post 1x 10, HR 127 post 1x10 fast. 02 98% Kneelinx, 1x10 (completion in 18 seconds) , 1x10 fast completion in 14 seconds. Diagnostics post: 1x10. HR 114. 02 98%. Post 1x10 fast: HR 127. 02% 98. BP 128/94 mmHg. Able to complete 75% of full kneel for kneeling tasks. Completed with slight mechanical deficits of lateral lean to L LE to promote moving to upright position. Generally, fair body mechanics with ability to maintain spinal alignment with task. Pain rated at 6/10. Some shortness of breath noted from exertion and some increased in heart rate noted from first to second set of ten repetitions. Reaching out/up: Reaching out from standinX, 10x, 10 x fast (10 seconds to complete). - no crepitus but slight tendon click with palpation after Pt. noted increased popping. 1x, 10x (11 seconds to complete), 10x fast (9 seconds to complete). HR: 90. 02: 99%. No increase in heart rate noted. Able to complete with good body mechanics in standing positions. Slight pain behaviors of grimace noted. Pain rated at 4/10 in low back. Walking: Completed walking around gym to complete 100 yards walk at fast pace in 82.13 seconds. Diagnostics post 100 yards walk: HR 91 bpm. 02 99. BP 137/89 mmHg. Completed dynamic and standing tasks in standing position for 22 mins. Completed weight shifts as needed. Completed dynamic gait with antalgic gait to R LE with lateral swing of R leg during dynamic gait. No increase in heart rate. Slight change in gait observed between slow and quick cadences. Standing: Explained he can stand for about 23 mins. Explained he experiences pain at about 23 mins but can go for 35-45 mins. Able to complete 30 mins of standing during FCE with completion of both static and dynamic tasks. Sitting: Reported he is able to sit for 30 mins prior to needing to change position. Completed sitting for 41 mins during FCE during intake of background information. Need for 2x weight shifts in change. Noted no increase in pain with therapist inquiry. Climbing Stairs: Notes he is able to complete 13 steps in apartments 3-4x daily. Able to complete 30 stairs ascending and descending with 1x handrails and alternating foot pattern during FCE in 72 seconds. Mild antalgic gait noted. Grimace noted. Use of functional pain scale noted pain 4-5/10. HR 100. 02 95%. BP 130/85 mmHg - Dynamic Occasional Lifting Capacity Floor Lift: Max weight: 35. Occasional Weight: 30 lbs. frequent 15 lbs. Completed with good body mechanics. Compensation of holding breath noted. Increase in compensations with maximum weight. Improvement in body mechanics and decreased compensations with decrease weight. Able to maintain spinal alignment throughout task. Increase in heart noted. Increased in pain behaviors observed with 1-2x grimace throughout task and need for seated break at end of task. Pain 5/10. HR post occasional: HR 124. 02 98%. HR post Frequent: HR post 5x frequent: 125 bpm. 02 98% Knee Lift: After 5 mins seated break at completed the rest of session: HR 85 bpm. 02 97%. Max weight 30 lbs. Occasional 25 lbs. frequent: 15 lbs. Completed with fair body mechanics. Lifts with extended elbows. Minimal mechanical deficits noted and compensations of holding breath. Able to maintain spinal alignment. Increase in heart rate noted, some observed grimace noted 2x during task. No wincing of mechanical changes observed from start to finish with appropriate weight. HR 130 bpm. 02 98%. BP 129/80 mmHg Waist Lift: Max weight: 35 lbs. Occasional: 30. Frequent: 15 lbs. Completed with fair body mechanics. Decrease spinal alignment of increased thoracic flexion. Slight grimace noted with placement of box. Pain 5/10. HR 135. 02 97%. BP 103/82 Shoulder Lift: Max weight: 35 lbs. Occasional weight: 30 lbs. Frequent: 15 lbs. Completed fair body mechanics. 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 Shortness of breath noted but no mechanical changes noted throughout task. No increase in heart rate observed. Pain rated at 5/10. . HR 122 bpm. 02 98 %. BP 118/82 Overhead Lift: Max weight: 35 lbs. Occasional weight: 30 lbs. Frequent: 15 lbs. Completed fair body mechanics. 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 Shortness of breath noted. Minimal mechanical deficits but no mechanical changes noted throughout task. No increase in heart rate from previous measurement observed. Pain rated 5/10. HR 118 bpm. 02 98%. BP: 120/72 mmHg Carrying: Occasional weight for 20 lbs. Completed with fair- poor body mechanics. Decreased spinal alignment noted with increase antalgic gait noted t/o B LE. Minimal mechanical deficits but no mechanical changes noted throughout task. Increased shortness of breath observed with some noted facial grimacing but pain at 5/10. Increase in heart rate observed. HR 127. 02 98. BP: 102/66 mmHg Comments: Able to complete standing position for another 22 mins during materials management tasks in addition to previous standing tasks. Needed 1x 1 min seated break after floor lift prior to continuing. Noted most comfortable position is to lay on L side for 8+ hours. <Electronically signed by Camille Dior > 06/12/18 1549 CC: Perry Dunn MD EMIR Signed For Medicare only, by signing this I certify the plan of care. Physicians Signature Date OT FCE D/C SUMMARY Observed: 06/12/2018 Status: F Source: [place] 3:49 PM [facility] [place] [address] Fax REHABILITATION SERVICES DISCHARGE SUMMARY MR#: [id number] Acct: [id number] Name: KATHIE FULLER Rep #: [id number] : 1970 47 From: Camille Dior Referring Dr.: Perry Dunn MD Status: REG RCR Eval Date: Discharge Date: FCE D/C Summary - Discharge KATHIE FULLER was seen for a one time visit for an FCE on 06/06/18 and is discharged. <Electronically signed by Camille Dior > 06/12/18 1549 CC: Perry Dunn MD KMB Signed CNPN Observed: 05/23/2018 Status: COMPLETED Source: [place] 12:00 AM [facility] KATHIE FULLER ([id number]) 1970 M Date Time Provider Department 05/23[facility] During your visit today, we recorded the following information about you: Jennifer Perez LPN 05/23/2018 11:51 AM Signed Patient drops off forms to complete. Placed on Dr Dunn desk for review. Perry Dunn MD 05/24/2018 5:21 PM Signed Requires a physical capacity eval. Please set up. Ebony Vanessa LPN 05/27/2018 10:23 AM Signed PATIENT NOTIFIED OF SAME. Call transferred to PSR to scheduled. Angella España PSR 05/31/2018 12:45 PM Signed Patient would like to get this done here in [place] at [facility] - can we fax the forms over to them? Michaela Bassett Ma 05/31/2018 3:08 PM Signed Referral form filled out anf faxed over. Pt notified to call on Sunday to schedule appointment. Michaela Perez LPN 06/17/2018 10:24 AM Signed Forms completed and mailed as requested. Allergies As of Date: 05/23/2018 Noted Allergy Reaction HYDROCHLOROTHIAZIDE 01/13/2011 14 - Other: See Comments Comments: Caused headaches Date Reviewed: 04/12/2018 Reviewed by: Jennifer Perez LPN - Fully Assessed Reason for Visit: Forms [913] Primary Visit Diagnosis:Degeneration of lumbar or lumbosacral intervertebral disc [M51.37] Order(s):PHYSICAL PERFORMANCE TEST [84330CNO] Order #: [id number] Prescriptions as of 05/23/2018 Sig: ATORVASTATIN 40 MG TABLET Take 1.5 tablets by mouth onc* SERTRALINE 100 MG TABLET Take 1.5 tablets by mouth onc* ASPIRIN 81 MG TABLET,DELAYED * Take 1 tablet by mouth once d* Problem List As Of Date 05/23/2018 Noted Resolved Sciatica [M54.30] INVALID FOR*03/14/2016 Lumbago [M54.5] INVALID FOR*03/14/2016 Displacement of lumbar intervertebral disc with*INVALID FOR*03/14/2016 Degeneration of lumbar or lumbosacral intervert*INVALID FOR* Chronic pain [G89.29] INVALID FOR*03/14/2016 Tobacco abuse [Z72.0] INVALID FOR* Mixed hyperlipidemia [E78.2] INVALID FOR* Substance abuse (HCC) [F19.10] INVALID FOR*02/08/2018 More... Atherosclerosis of coronary artery of [place] he*INVALID FOR* More... Chronic hepatitis C without hepatic coma (HCC) *INVALID FOR* History of coronary artery stent placement [Z95*INVALID FOR* History of substance abuse [Z87.898] INVALID FOR* Encounter Status:Closed by MICHAELA BASSETT MA on 05/31/18 SINUS/FACIAL BONE Observed: 05/02/2018 Status: F Source: [place] 12:41 PM [facility] Imaging Services [address] [place] [address] Sinus/Facial Bone MR#: [id number] Acct: [id number] Name: FULLERKATHIE Kimberly Rep #: [id number] : 1970 M 47 From: Bertram Whitaker MD PCP: Perry Dunn MD Status: REG CLI Study: Sinus/Facial Bone Date of Exam: 05/02/18 Exam# [id number] Ordering Dr: Elton Lancaster MD STUDY: CT FACIAL BONES WITHOUT CONTRAST REASON FOR EXAM: Male, 47 years old. Sinusitis RADIATION DOSAGE (If Supplied By Facility): CTDIvol = ( 33.45 ) mGy, DLP = ( 855.81 ) mGycm TECHNIQUE: The patient was scanned in a multi detector CT scanner. Sagittal and coronal images were reconstructed. Individualized dose optimization techniques were used for this CT. COMPARISON: None. FINDINGS: Normal soft tissue structures. Normal orbital meehan and orbital contents. Normal nasal bones and anterior nasal spine. Normal facial bones. There is no demonstrated fracture. The frontal sinuses are hypoplastic. The ethmoid, sphenoid, and maxillary sinuses are appropriately pneumatized. There are bilateral polypoid filling defects of the maxillary sinuses. There is mucosal thickening of multiple ethmoid air cells bilaterally. The mastoids appear within normal limits. Numerous carious teeth are noted. CT/Sinus/Facial Bone IMPRESSION: 1. Hypoplastic frontal sinuses. 2. Bilateral polypoid filling defects of the maxillary sinuses consistent with mucoid retention cysts. 3. Mucosal thickening of multiple ethmoid air cells bilaterally consistent with chronic ethmoid sinusitis. 4. Carious teeth. Electronically Signed: Bertram Whitaker MD at 17:05 EDT , Service support , CC: Pito Lancaster MD; Perry Dunn MD [facility]: Signed PROGRESS Observed: 04/12/2018 Status: COMPLETED Source: [place] 10:25 AM [facility] REPOSIT[facility] O ID: [id number] Author: Perry Dunn Service: (none) Author Type: Physician Type: Progress Notes Filed: 04/12/2018 10:39 AM Note Text: Patient presents with: Recheck HPI: Patient presents today for office visit for recheck. CAD:no chest pain or shortness of breath. No edema. HLD no myalgias. His numbers are really high. We increased his numbers. MARTIN:neck xrays were negative. Seem to come from his neck. No radicular pain. HEP C: has been sober for two years. His hep c is definitely positive. We discussed treatment and is unable to travel. No stomach upset. No itching or jaundice. Discussed risks of untreated hep c. Spinal stenosis:still on gabapentin. Is stable. No misuse of meds. Requests ENT referral has had sinus issues since his 20's No current fever or chills. Component Latest Ref Rng AND Units 02/22/2018 02/22/2018 8:30 AM 8:30 AM Protein, Total 6.3 - 8.0 g/dL 7.5 Albumin 3.9 - 4.9 g/dL 4.4 Calcium 8.5 - 10.2 mg/dL 9.9 Bilirubin, Total 0.2 - 1.3 mg/dL 0.4 Alkaline Phosphatase 36 - 108 U/L 78 AST 14 - 40 U/L 27 Glucose 74 - 99 mg/dL 85 BUN 9 - 24 mg/dL 13 Creatinine 0.73 - 1.22 mg/dL 0.71 (L) Sodium 136 - 144 mmol/L 138 Potassium 3.7 - 5.1 mmol/L 4.0 Chloride 97 - 105 mmol/L 103 CO2 22 - 30 mmol/L 24 Anion Gap 9 - 18 mmol/L 11 ALT 10 - 54 U/L 40 eGFR- >60 eGFR-All Other Races . >60 Cholesterol, Total <200 mg/dL 270 (H) Triglyceride <150 mg/dL 832 (H) HDL Cholesterol >39 mg/dL 29 (L) LDL Cholesterol <100 mg/dL Unable to calculate due to increased Triglycerides. See LDL-Chol, Direct. Non HDL Cholesterol <130 mg/dL 241 (H) Fasting Time hrs 12 VLDL Cholesterol <30 mg/dL Unable to calculate due to increased Triglycerides. See LDL-Chol, Direct. 127 (H) TC:HDL Ratio <5.10 9.31 (H) LDL:HDL Ratio <2.54 Unable to calculate due to elevated Triglycerides. LDL Cholesterol, Direct <100 mg/dL 114 (H) HCV RNA by PCR IU/mL 396,410 (A) MEDICATIONS: Current Outpatient Prescriptions: atorvastatin (LIPITOR) 40 mg tablet Take 1.5 tablets by mouth once daily. gabapentin (NEURONTIN) 300 mg capsule Take 1 capsule by mouth three times daily for 90 days. sertraline (ZOLOFT) 100 mg tablet Take 1.5 tablets by mouth once daily. aspirin, enteric coated (ASPIRIN, ENTERIC COATED) 81 mg EC tablet Take 1 tablet by mouth once daily. No current facility-administered medications for this visit. ALLERGIES: ALLERGIES Allergen Reactions - Hydrochlorothiazide Other: See Comments Caused headaches PAST MEDICAL HISTORY Diagnosis Date - CAD (coronary artery disease) had FL at one point. - Hyperlipidemia - Spinal stenosis of lumbar region PAST SURGICAL HISTORY Procedure Laterality Date - LOW BACK DISK SURGERY 2004 - PAST SURGICAL HISTORY OF [facility] FAMILY HISTORY Problem Relation Age of Onset - Hypertension Mother - COPD Mother - None Brother - None Brother - Heart Maternal Grandmother - Heart Maternal Grandfather - Heart Paternal Grandmother - Heart Paternal Grandfather - None Daughter - None Son - Hypertension Father Social History Marital status: Legally Spouse name: Years of education: Number of children: Social History Main Topics Smoking status: Current Every Day Smoker Packs/day: 1.00 Years: 25.00 Types: Cigarettes Smokeless tobacco: Never Used Alcohol use: No Drug use: No Comment: Past history of Cocaine use, meth use Sexual activity: Yes Partners with: Female Reviewed current medications, allergies, past medical history, surgical history, family history and social history today. REVIEW OF SYSTEMS GI: Negative for change in bowel habit : No history of dysuria, frequency or incontinence All other reviewed and negative other than HPI. HEALTH MAINTENANCE: Reviewed health maintenance issues today and recommended the following in detail. INFLUENZA-declines. Discussed tobacco cessation, including risks of continued use. Offered assistance to help quit if patient desires. VITALS: BP 122/72 Pulse 64 Resp 14 Wt 80.3 kg (177 lb) BMI 26.14 kg/m? Last 4 Encounter Wt Readings: Date: Wt: 04/12/2018 80.3 kg (177 lb) 02/08/2018 83.9 kg (185 lb) 06/23/2016 72 kg (158 lb 11.2 oz) 03/14/2016 68.5 kg (151 lb) PHYSICAL EXAMINATION: General appearance: Well appearing, alert, in no acute distress, well-hydrated, well nourished. Skin: Skin color, texture, turgor normal, no suspicious rashes or lesions Head: Normocephalic, no masses, lesions, tenderness or abnormalities Neck: Supple, no adenopathy; thyroid symmetric, normal size, no bruits Back: Normal exam Lungs: Lungs clear to auscultation. No wheezing, rhonchi, rales Heart: RRR without murmur, gallop, or rubs. No ectopy Abdomen: Normal abdominal exam, Abdomen soft, non-tender. Bowel sounds normal. No masses, organomegaly Extremities: No deformities, edema, skin discoloration, clubbing or cyanosis. Good capillary refill. Musculoskeletal: No joint swelling, deformity, or tenderness Neuro: Negative findings: reflexes normal and symmetric ASSESSMENT/PLAN: 1. Chronic hepatitis C without hepatic coma (HCC) - ICD9: 070.54, ICD10: B18.2 (primary diagnosis) - see gi. Reinforced importance for follow up. 2. History of coronary artery stent placement - ICD9: V45.82, ICD10: Z95.5 - call if chest pain or shortness of breath. 3. Mixed hyperlipidemia - ICD9: 272.2, ICD10: E78.2 - suboptimal control - Continue current medication. - Encouraged following a low fat, low cholesterol diet. - get labs now. 4. Degeneration of lumbar or lumbosacral intervertebral disc - ICD9: 722.52, ICD10: M51.37 - continue meds. 5. Tobacco abuse - ICD9: 305.1, ICD10: Z72.0 - Cessation encouraged. - Physiologic and physical aspects of tobacco addiction as well as strategies for quitting were discussed. - Counseling was given focusing on the harmful effects of this addiction especially given the patient's medical condition(s) which will be worsened because of the chemicals in tobacco. - down to three cigarrettes 6. Chronic sinusitis, unspecified location - ICD9: 473.9, ICD10: J32.9 - see ent 7. Pain, neck - ICD9: 723.1, ICD10: M54.2 See physical therapy. Perry Dunn MD RTO in six months. and prn. MADHAVI Observed: 04/12/2018 Status: COMPLETED Source: [place] 9:20 AM [facility] RE[facility] Office Visit ([facility]) JONNYKATHIE ([id number]) 1970 M Date Time Provider Department 04/12/18 9:20 AM PERRY DUNN During your visit today, we recorded the following information about you: Pulse Respiration Blood pressure Weight 64/minute 14/minute 122/72 80.3 kg Perry Dunn MD 04/12/2018 10:39 AM Signed Patient presents with: Recheck HPI: Patient presents today for office visit for recheck. CAD:no chest pain or shortness of breath. No edema. HLD no myalgias. His numbers are really high. We increased his numbers. MARTIN:neck xrays were negative. Seem to come from his neck. No radicular pain. HEP C: has been sober for two years. His hep c is definitely positive. We discussed treatment and is unable to travel. No stomach upset. No itching or jaundice. Discussed risks of untreated hep c. Spinal stenosis:still on gabapentin. Is stable. No misuse of meds. Requests ENT referral has had sinus issues since his ' No current fever or chills. Component Latest Ref Rng AND Units 02/22/2018 02/22/2018 8:30 AM 8:30 AM Protein, Total 6.3 - 8.0 g/dL 7.5 Albumin 3.9 - 4.9 g/dL 4.4 Calcium 8.5 - 10.2 mg/dL 9.9 Bilirubin, Total 0.2 - 1.3 mg/dL 0.4 Alkaline Phosphatase 36 - 108 U/L 78 AST 14 - 40 U/L 27 Glucose 74 - 99 mg/dL 85 BUN 9 - 24 mg/dL 13 Creatinine 0.73 - 1.22 mg/dL 0.71 (L) Sodium 136 - 144 mmol/L 138 Potassium 3.7 - 5.1 mmol/L 4.0 Chloride 97 - 105 mmol/L 103 CO2 22 - 30 mmol/L 24 Anion Gap 9 - 18 mmol/L 11 ALT 10 - 54 U/L 40 eGFR- >60 eGFR-All Other Races . >60 Cholesterol, Total <200 mg/dL 270 (H) Triglyceride <150 mg/dL 832 (H) HDL Cholesterol >39 mg/dL 29 (L) LDL Cholesterol <100 mg/dL Unable to calculate due to increased Triglycerides. See LDL-Chol, Direct. Non HDL Cholesterol <130 mg/dL 241 (H) Fasting Time hrs 12 VLDL Cholesterol <30 mg/dL Unable to calculate due to increased Triglycerides. See LDL-Chol, Direct. 127 (H) TC:HDL Ratio <5.10 9.31 (H) LDL:HDL Ratio <2.54 Unable to calculate due to elevated Triglycerides. LDL Cholesterol, Direct <100 mg/dL 114 (H) HCV RNA by PCR IU/mL 396,410 (A) MEDICATIONS: Current Outpatient Prescriptions: atorvastatin (LIPITOR) 40 mg tablet Take 1.5 tablets by mouth once daily. gabapentin (NEURONTIN) 300 mg capsule Take 1 capsule by mouth three times daily for 90 days. sertraline (ZOLOFT) 100 mg tablet Take 1.5 tablets by mouth once daily. aspirin, enteric coated (ASPIRIN, ENTERIC COATED) 81 mg EC tablet Take 1 tablet by mouth once daily. No current facility-administered medications for this visit. ALLERGIES: ALLERGIES Allergen Reactions - Hydrochlorothiazide Other: See Comments Caused headaches PAST MEDICAL HISTORY Diagnosis Date - CAD (coronary artery disease) had FL at one point. - Hyperlipidemia - Spinal stenosis of lumbar region PAST SURGICAL HISTORY Procedure Laterality Date - LOW BACK DISK SURGERY 2004 - PAST SURGICAL HISTORY OF [facility]ca FAMILY HISTORY Problem Relation Age of Onset - Hypertension Mother - COPD Mother - None Brother - None Brother - Heart Maternal Grandmother - Heart Maternal Grandfather - Heart Paternal Grandmother - Heart Paternal Grandfather - None Daughter - None Son - Hypertension Father Social History Marital status: Legally Spouse name: Years of education: Number of children: Social History Main Topics Smoking status: Current Every Day Smoker Packs/day: 1.00 Years: 25.00 Types: Cigarettes Smokeless tobacco: Never Used Alcohol use: No Drug use: No Comment: Past history of Cocaine use, meth use Sexual activity: Yes Partners with: Female Reviewed current medications, allergies, past medical history, surgical history, family history and social history today. REVIEW OF SYSTEMS GI: Negative for change in bowel habit : No history of dysuria, frequency or incontinence All other reviewed and negative other than HPI. HEALTH MAINTENANCE: Reviewed health maintenance issues today and recommended the following in detail. INFLUENZA-declines. Discussed tobacco cessation, including risks of continued use. Offered assistance to help quit if patient desires. VITALS: BP 122/72 Pulse 64 Resp 14 Wt 80.3 kg (177 lb) BMI 26.14 kg/m? Last 4 Encounter Wt Readings: Date: Wt: 04/12/2018 80.3 kg (177 lb) 02/08/2018 83.9 kg (185 lb) 06/23/2016 72 kg (158 lb 11.2 oz) 03/14/2016 68.5 kg (151 lb) PHYSICAL EXAMINATION: General appearance: Well appearing, alert, in no acute distress, well-hydrated, well nourished. Skin: Skin color, texture, turgor normal, no suspicious rashes or lesions Head: Normocephalic, no masses, lesions, tenderness or abnormalities Neck: Supple, no adenopathy; thyroid symmetric, normal size, no bruits Back: Normal exam Lungs: Lungs clear to auscultation. No wheezing, rhonchi, rales Heart: RRR without murmur, gallop, or rubs. No ectopy Abdomen: Normal abdominal exam, Abdomen soft, non-tender. Bowel sounds normal. No masses, organomegaly Extremities: No deformities, edema, skin discoloration, clubbing or cyanosis. Good capillary refill. Musculoskeletal: No joint swelling, deformity, or tenderness Neuro: Negative findings: reflexes normal and symmetric ASSESSMENT/PLAN: 1. Chronic hepatitis C without hepatic coma (HCC) - ICD9: 070.54, ICD10: B18.2 (primary diagnosis) - see gi. Reinforced importance for follow up. 2. History of coronary artery stent placement - ICD9: V45.82, ICD10: Z95.5 - call if chest pain or shortness of breath. 3. Mixed hyperlipidemia - ICD9: 272.2, ICD10: E78.2 - suboptimal control - Continue current medication. - Encouraged following a low fat, low cholesterol diet. - get labs now. 4. Degeneration of lumbar or lumbosacral intervertebral disc - ICD9: 722.52, ICD10: M51.37 - continue meds. 5. Tobacco abuse - ICD9: 305.1, ICD10: Z72.0 - Cessation encouraged. - Physiologic and physical aspects of tobacco addiction as well as strategies for quitting were discussed. - Counseling was given focusing on the harmful effects of this addiction especially given the patient's medical condition(s) which will be worsened because of the chemicals in tobacco. - down to three cigarrettes 6. Chronic sinusitis, unspecified location - ICD9: 473.9, ICD10: J32.9 - see ent 7. Pain, neck - ICD9: 723.1, ICD10: M54.2 See physical therapy. Perry Dunn MD RTO in six months. and prn. Referring Provider: SELF [200] Allergies As of Date: 04/12/2018 Noted Allergy Reaction HYDROCHLOROTHIAZIDE 01/13/2011 14 - Other: See Comments Comments: Caused headaches Date Reviewed: 04/12/2018 Reviewed by: Jennifer Perez LPN - Fully Assessed Reason for Visit: Recheck [92] Primary Visit Diagnosis:Chronic hepatitis C without hepatic coma (HCC) [B18.2] Other Visit Diagnoses:History of coronary artery stent placement [Z95.5] Mixed hyperlipidemia [E78.2] Degeneration of lumbar or lumbosacral intervertebral disc [M51.37] Tobacco abuse [Z72.0] Chronic sinusitis, unspecified location [J32.9] Pain, neck [M54.2] Order(s):CONSULT TO GASTROENTEROLOGY [9010] Order #: [id number]: 1 CONSULT TO ENT [9008] Order #: [id number]: 1 CONSULT TO PHYSICAL THERAPY [9032] Order #: [id number]: 1 LIPID PANEL BASIC [SQLIPB] Order #: [id number] FUTURE AST/SGOT BLD [SQAST] Order #: [id number] FUTURE CK CREATINE KINASE [SQCK] Order #: [id number] FUTURE Prescriptions as of 04/12/2018 Sig: ATORVASTATIN 40 MG TABLET Take 1.5 tablets by mouth onc* GABAPENTIN 300 MG CAPSULE Take 1 capsule by mouth three* SERTRALINE 100 MG TABLET Take 1.5 tablets by mouth onc* ASPIRIN 81 MG TABLET,DELAYED * Take 1 tablet by mouth once d* Problem List As Of Date 04/12/2018 Noted Resolved Sciatica [M54.30] INVALID FOR*03/14/2016 Lumbago [M54.5] INVALID FOR*03/14/2016 Displacement of lumbar intervertebral disc with*INVALID FOR*03/14/2016 Degeneration of lumbar or lumbosacral intervert*INVALID FOR* Chronic pain [G89.29] INVALID FOR*03/14/2016 Tobacco abuse [Z72.0] INVALID FOR* Mixed hyperlipidemia [E78.2] INVALID FOR* Substance abuse (HCC) [F19.10] INVALID FOR*02/08/2018 More... Atherosclerosis of coronary artery of [place] he*INVALID FOR* More... Chronic hepatitis C without hepatic coma (HCC) *INVALID FOR* History of coronary artery stent placement [Z95*INVALID FOR* History of substance abuse [Z87.898] INVALID FOR* Disposition: Return in about 6 months (around 10/10/2018). Follow-up and Disposition History Recorded Encounter Status:Closed by PERRY DUNN MD on 04/12/18 DISCHARGE INSTRUCTION Observed: 03/04/2018 Status: F Source: [place] 9:53 PM [facility] Medical Records Department [address] [place] [address] Discharge Instruction 03/04/182151 MR#: [id number] Acct: [id number] Name: KATHIE FULLER Rep #: [id number] : 1970 47 From: Susan Daly MD PCP: Perry Dunn MD Status: REG ER ED Disposition - Plan for ED Patient: Chief Complaint: General Illness Instructions: ED Sinusitis No Abx Prescriptions: Guaifenesin/Pseudoephedrne HCl [Mucinex D ER 1,200-120 mg Tab] 1 each PO BID #14 tab.er.12h Referrals: Perry Dunn MD [Primary Care Provider] - What to do if you have Problems For any increased pain, shortness of breath, bleeding, nausea or vomiting, chest pain, or any unexpected problems, contact your Primary Care Provider. Call [facility] ([phone]) or report to the closest Emergency Room. Call 911 if necessary. 03/04/182152 <Electronically signed by Susan Daly MD> Date Susan Daly MD Cosigner Signature (If Indicated): Date CC: Peryr Dunn MD EMERGENCY DEPARTMENT Observed: 03/04/2018 Status: F Source: SONG SUMMARY 9:52 PM [facility] [place] [facility] Medical Records Department [address] [place] [address] Emergency Department Summary 03/04/18 2148 MR#: [id number] Acct: [id number] Name: KATHIE FULLER Rep #: [id number] : 1970 47 From: Susan Daly MD PCP: Perry Dunn MD Status: REG ER - ER Visit Summary Date of Service: 03/04/18 Chief Complaint: Sinus congestion History of Present Illness: The patient is a 47 M presenting with sinus congestion 4 days. He states he has had rhinorrhea and sinus congestion. He has had a dry cough. He has had temperatures up to 100.2 at home. He states he has had similar symptoms with sinus infections in the past. Denies other complaints. Physical Examination: Vitals are stable. Patient is afebrile. Alert no acute distress. HEENT exam TMs normal bilaterally, pharynx is normal, mild bilateral maxillary sinus tenderness. Neck is supple. Lungs are clear and equal bilaterally. Heart is regular rate and rhythm. Abdomen is soft nontender nondistended. Extremities are unremarkable. Skin is warm and dry. No focal neurologic deficit. Remainder of exam is unremarkable. Emergency Department Course and Treatment: Due to the duration of his symptoms he will not be started on antibiotics at this time as it is likely viral. He is advised to follow-up with his primary care physician. He is given a prescription for Mucinex D. Advised return to ED for worsening complaints. Disposition: Discharge home Impression: Sinusitis This note was generated with [employer] dictation software. It may contain incorrect words, spelling, and punctuation that were not noted in review of the chart prior to signing ED Disposition - Plan for ED Patient: Chief Complaint: General Illness Referrals: Perry Dunn MD [Primary Care Provider] - What to do if you have Problems For any increased pain, shortness of breath, bleeding, nausea or vomiting, chest pain, or any unexpected problems, contact your Primary Care Provider. Call [facility] ([phone]) or report to the closest Emergency Room. Call 911 if necessary. 03/04/18 215 <Electronically signed by Susan Daly MD> Date Susan Daly MD Cosigner Signature (If Indicated): Date CC: Perry Dunn MD CNCO Observed: 02/25/2018 Status: COMPLETED Source: CEDAR 12:00 AM [facility] REPOSITORY Letter Text Kathie Harris Fuller [facility] Perry Dunn MD [phone] Kathie Fuller [address] [facility] [address] February 25, 2018 NOTICE OF APPOINTMENT CANCELLATION Mr. Fuller, There has been a change in the schedule, so your appointment with Perry Dunn MD on 04/10/18 has been cancelled. Please contact us at [phone] to reschedule this appointment. Dr. Dunn will also be available during his open access hours on Sunday, Sunday, and Sunday if you would prefer this to making an appointment. Thank you for your attention to this matter. Please accept our apology for any inconvenience this may have caused you. Sincerely, Your Care Team XR CERVICAL 4V Observed: 02/22/2018 Status: F Source: CEDAR AP/LAT/FLX/EXT 8:33 AM [facility] REPOSITORY * * *Final Report* * * DATE OF EXAM: Feb 22 2018 8:33AM [id number] [id number] - XR CERVICAL 4V AP/LAT/FLX/EXT / PROCEDURE REASON: multiple diagnoses * * * * Physician Interpretation * * * * EXAMINATION: XR CERVICAL 4V AP/LAT/FLX/EXT CLINICAL HISTORY: chronic headaches posterior Cervicalgia Headache Technique: XR CERVICAL 4V AP/LAT/FLX/EXT -- LEFT cervical spine with 4 views on 4 images Comparison: None RESULT: Counting reference: Craniocervical junction. Straightening of normal cervical lordosis. Vertebral body heights and disc spaces are within normal limits. No instability noted on the flexion-extension views. No fracture or dislocation. Prevertebral soft tissues are unremarkable. Lung apices are clear. IMPRESSION: No acute osseous finding. No instability. [facility] Transcribe Date/Time: Feb 22 2018 10:28A Dictated by : ANGEL GILMORE MD This examination was interpreted and the report reviewed and electronically signed by: ANGEL GILMORE MD on Feb 22 2018 10:30AM EST [id number] COMP METABOLIC PANEL Collected: 02/22/2018 Status: F Source: CEDAR 8:30 AM [facility] REPOSITORY TYPE CODE TESTS RESULT OUT OF REFERENCE UNITS RANGE LAB TP 6.3-8.0 g/dL Protein, Total 7.5 LAB ALB 3.9-4.9 g/dL Albumin 4.4 LAB CA 8.5-10.2 mg/dL Calcium, Total 9.9 LAB TBIL 0.2-1.3 mg/dL Bilirubin, Total 0.4 LAB ALKP 36-108 U/L Alkaline Phosphatase 78 LAB AST 14-40 U/L AST 27 LAB GLU 74-99 mg/dL Glucose 85 Result Comment: The [place] Diabetes Association (ADA) provides guidance for cutoff values for fasting glucose and random glucose. The ADA defines fasting as no caloric intake for at least 8 hours. Fas ting plasma glucose results between 100 to 125 mg/dL indicate increased risk for diabetes (prediabetes). Fasting plasma glucose results greater than or equal to 126 mg/dL meet the criteria for diagnosis of diabetes. In the absence of unequivocal hyperglycemia, results should be confirmed by repeat testing. In a patient with classic symptoms of hyperglycemia or hyperglycemic crisis, random plasma glucose results greater than or equal to 200 mg/dL meet the criteria for diagnosis of diabetes. Reference: Standards of Medical Care in Diabetes 2016, [place] Diabetes Association. Diabetes Care. 2016.39(Suppl 1). LAB BUN 9-24 mg/dL BUN 13 LAB CRET 0.73-1.22 mg/dL Creatinine Low 0.71 LAB NA 136-144 mmol/L Sodium 138 LAB K 3.7-5.1 mmol/L Potassium 4.0 LAB CL 97-105 mmol/L Chloride 103 LAB CO2 22-30 mmol/L CO2 24 LAB AGAP 9-18 mmol/L Anion Gap 11 LAB ALT 10-54 U/L ALT 40 LAB GFRAA eGFR- Amer. >60 LAB GFRNAA . eGFR-All Other Races >60 Result Comment: eGFR (Estimated GFR) Units of measure: mL/min/1.73 meters squared eGFR is derived from the reexpressed MDRD Study equation using the following parameters: serum creatinine, age, gender and race. The creatinine assay has been calibrated to be traceable to IDMS. An eGFR <60 mL/min/1.73m2 for >3 months is consistent with chronic kidney disease. Refer to KDOQI guidelines for clinical interpretation. In patients with unstable renal function, e.g. those with acute kidney injury, the eGFR may not accurately reflect actual GFR. Performed By: #### CMP, LIPB, LDLDCT, HCQPCR #### [facility] [address] [place], [place] [address] LIPID PANEL, BASIC Collected: 02/22/2018 Status: F Source: CEDAR 8:30 AM [facility] REPOSITORY TYPE CODE TESTS RESULT OUT OF REFERENCE UNITS RANGE LAB CHOL <200 mg/dL Cholesterol High 270 Result Comment: <200 mg/dL, Desirable 200-239 mg/dL, Borderline high >239 mg/dL, High LAB TRIGLY <150 mg/dL Triglyceride High 832 Result Comment: <150 mg/dL, Normal 150-199 mg/dL, Borderline high 200-499 mg/dL, High >499 mg/dL, Very high LAB HDL >39 mg/dL HDL-Cholesterol Low 29 Result Comment: 40-59 mg/dL, Acceptable >59 mg/dL, High: Negative risk factor for coronary heart disease <40 mg/dL, Low: Positive risk factor for coronary heart disease LAB LDL <100 mg/dL LDL-Cholesterol Unable to calculate due to increased Triglycerides. See LDL-Chol, Direct. LAB NONHDL <130 mg/dL Non HDL Cholesterol 241 High Result Comment: <130 mg/dL, Optimal 130-159 mg/dL, Near optimal/above optimal 160-189 mg/dL, Borderline high 190-219 mg/dL, High >219 mg/dL, Very high Secondary prevention optimal non HDL Cholesterol levels are recommended to be < 100 mg/dL LAB FT hrs Fasting Time 12 LAB VLDL <30 mg/dL VLDL Unable Cholesterol to calculate due to increased Triglycerides. See LDL-Chol, Direct. LAB TCHDL <5.10 TC:HDL Ratio 9.31 High LAB LDLHDL <2.54 LDL:HDL Ratio Unable to calculate due to elevated Triglycerides. Result Comment: Reference: 1. National Cholesterol Education Program ATP III Guideline At-A-Glance Quick Desk Reference: National Heart, Lung, and Blood [place]. National Institutes of Health. 2001: NIH Publication No. 01-3305. 2. An International Atherosclerosis Society position paper: global recommendations for the management of dyslipidemia: executive summary, Atherosclerosis. 2014: 232(2):410-413. Performed By: #### CMP, LIPB, LDLDCT, HCQPCR #### [facility] [address] [place] [id number] LDL-CHOL, DIRECT Collected: 02/22/2018 Status: F Source: CEDAR 8:30 AM [facility] REPOSITORY TYPE CODE TESTS RESULT OUT OF REFERENCE UNITS RANGE LAB LDLDIR <100 mg/dL High LDL-Chol, 114 Direct Result Comment: <100 mg/dL, Optimal 100-129 mg/dL, Near optimal/above optimal 130-159 mg/dL, Borderline high 160-189 mg/dL, High >189 mg/dL, Very high Secondary prevention optimal LDL Cholesterol levels are recommended to be < 70 mg/dL LAB VLDL1 <30 mg/dL VLDL High Cholesterol 127 Performed By: #### CMP, LIPB, LDLDCT, HCQPCR #### [facility] [address] [place], [place] [address] HEPATITIS C RNA Collected: 02/22/2018 Status: F Source: CEDAR 8:30 AM [facility] REPOSITORY TYPE CODE TESTS RESULT OUT OF RANGE REFERENCE UNITS LAB HCQPCR IU/mL Abnormal Hepatitis C RNA Alert [id number] Result Comment: INTERPRETATION: Positive for HCV RNA by PCR. The Linear Range of this assay is 15 IU/mL to 100,000,000 IU/mL. Reference Range: Negative for HCV RNA Performed By: #### CMP, LIPB, LDLDCT, HCQPCR #### [facility] [address] [place], [place] [address] PROGRESS Observed: 02/22/2018 Status: COMPLETED Source: CEDAR 8:24 AM [facility] REPOSITORY HNO ID: [id number] Author: Nuha Iglesias Service: (none) Author Type: (none) Type: Progress Notes Filed: 02/22/2018 8:33 AM Note Text: Radiology Service Progress Note PATIENT NAME: Kathie Fuller DATE OF SERVICE: February 22, 2018 TIME: 8:24 AM PATIENT IDENTITY VERIFICATION COMPLETED USING TWO (2) METHODS: Patient confirmed name verbally and Date of . PATIENT GENDER DATA: Male PATIENT RELEVANT IMPLANT DATA REVIEWED: Not Applicable RADIOLOGY DEPARTMENT: General X-ray: Exam(s) Completed: Spine X-Ray(s): Cervical AP / LAT / FLEX-EXT PERIPHERAL IV DATA: Not applicable SIGNED BY: Nuha Iglesias February 22, 2018 8:24 AM CNCO Observed: 02/18/2018 Status: COMPLETED Source: CEDAR 12:00 AM [facility] REPOSITORY Letter Text [address] [place] [address] [phone] 02/18/2018 Kathie Fuller [address] [facility] [address] Dear Mr. Fuller: Due to a change in the provider's schedule, it has been necessary to reschedule your appointment. Enclosed please find a new appointment reminder that will replace the one previously sent to you. If this appointment is not convenient for you, please contact our office at [phone]. Thank you for choosing the [facility] as your Healthcare Provider. Sincerely, Appointment Office Department of Family Medicine Enclosure PROGRESS Observed: 02/08/2018 Status: COMPLETED Source: CEDAR 12:21 PM [facility] REPOSITORY HNO ID: [id number] Author: Perry Dunn Service: (none) Author Type: Physician Type: Progress Notes Filed: 02/08/2018 12:46 PM Note Text: Patient presents with: Headache HPI: Patient presents today for office visit for follow up. Nursing Notes: Michaela Bassett Ma 02/08/2018 12:08 PM Signed HEADACHE: Pt complaining of headaches for the past year. Over the last 2 months, the headaches have been every day. Usually starting at mid morning. Located at the back of his head. Throbbing, 6-8 out of a 10, can last last anywhere from 1 hour to all day. Takes either 400 mg of Advil every 4 hours as needed or 1000 mg of Tylenol every 4 hours as needed. Has not been here in several years. Was admitted for muscular chest pain in 10/21 and had a normal stress test and echo and followed with Dr. Potter after. Begun at that time in lipitor. No new chest pain. Does have shortness of breath. He does not want it worked up. Thinks it is due to smoking. Discussed tobacco cessation, including risks of continued use. Offered assistance to help quit if patient desires. No issues with lipitor has not been back for labs. Discussed needs to monitor liver while on it. He was on colestid for his cholesterol. Discussed that he does not need to do both. GASTROENTEROLOGY: had went back to [place]. Has not gotten his hep c rechecked or treated. Discussed risks of not treating. Psych: still taking zoloft. Doing well. Headaches have been there for a year. Starts in the back of the neck and moves up the scalp. No radicular symptoms. Neck cracks and pops. No head injury or neck injury. No changes in the vision or nausea. No dizziness or speech changes. Always stays in the neck and occipital area. Not the worst headache he has ever had. No thundeclap component. Some phonophobia. No photophobia. MEDICATIONS: Current Outpatient Prescriptions: atorvastatin (LIPITOR) 40 mg tablet Take 1 tablet by mouth once daily. sertraline (ZOLOFT) 100 mg tablet Take 1.5 tablets by mouth once daily. colestipol (COLESTID) 1 gram tablet Take 1 tablet by mouth twice daily. gabapentin (NEURONTIN) 300 mg capsule Take 1 capsule at night for 5 days then increase to 1 capsule twice a day for 5 days then 1 capsue three times a day as tolerated. (Patient taking differently: Take 300 mg by mouth three times daily.) aspirin, enteric coated (ASPIRIN, ENTERIC COATED) 81 mg EC tablet Take 1 tablet by mouth once daily. No current facility-administered medications for this visit. ALLERGIES: ALLERGIES Allergen Reactions - Hydrochlorothiazide Other: See Comments Caused headaches PAST MEDICAL HISTORY Diagnosis Date - CAD (coronary artery disease) had FL at one point. - Hyperlipidemia - Spinal stenosis of lumbar region PAST SURGICAL HISTORY Procedure Laterality Date - LOW BACK DISK SURGERY 2004 - PAST SURGICAL HISTORY OF [facility] FAMILY HISTORY Problem Relation Age of Onset - Hypertension Mother - COPD Mother - None Brother - None Brother - Heart Maternal Grandmother - Heart Maternal Grandfather - Heart Paternal Grandmother - Heart Paternal Grandfather - None Daughter - None Son - Hypertension Father Social History Marital status: Legally Spouse name: Years of education: Number of children: Social History Main Topics Smoking status: Current Every Day Smoker Packs/day: 1.00 Years: 25.00 Types: Cigarettes Smokeless tobacco: Never Used Alcohol use: No Drug use: No Comment: Past history of Cocaine use, meth use Sexual activity: Yes Partners with: Female Reviewed current medications, allergies, past medical history, surgical history, family history and social history today. REVIEW OF SYSTEMS All other reviewed and negative other than HPI. HEALTH MAINTENANCE: Reviewed health maintenance issues today and recommended the following in detail. VITALS: BP 130/88 Pulse 76 Resp 16 Wt 83.9 kg (185 lb) BMI 27.32 kg/m? Last 4 Encounter Wt Readings: Date: Wt: 02/08/2018 83.9 kg (185 lb) 06/23/2016 72 kg (158 lb 11.2 oz) 03/14/2016 68.5 kg (151 lb) 05/31/2012 75.3 kg (166 lb) PHYSICAL EXAMINATION: General appearance: Well appearing, alert, in no acute distress, well-hydrated, well nourished. Skin: Skin color, texture, turgor normal, no suspicious rashes or lesions Head: Normocephalic, no masses, lesions, tenderness or abnormalities Eyes: Anicteric sclera. Pupils are equally round and reactive to light. Extraocular movements are intact. Ears: External ears normal, canals clear Nose/Sinuses: Nares normal, septum midline, mucosa normal, no drainage or sinus tenderness Oropharynx: Lips, mucosa, and tongue normal, teeth and gums normal, oropharynx normal Neck: supple, tender over back of the neck. No massess Lungs: Lungs clear to auscultation. No wheezing, rhonchi, rales Heart: RRR without murmur, gallop, or rubs. No ectopy Abdomen: Normal abdominal exam, Abdomen soft, non-tender. Bowel sounds normal. No masses, organomegaly Extremities: No deformities, edema, skin discoloration, clubbing or cyanosis. Good capillary refill. Neuro: Gait normal. Reflexes normal and symmetric. Sensation grossly intact., CN normal ASSESSMENT/PLAN: 1. Chronic hepatitis C without hepatic coma (HCC) - ICD9: 070.54, ICD10: B18.2 (primary diagnosis) - reinforced need for follow up - HCV QUANT RNA BY PCR - CONSULT TO GASTROENTEROLOGY 2. Atherosclerosis of [place] coronary artery of [place] heart without angina pectoris - ICD9: 414.01, ICD10: I25.10 - continue to follow with Dr Potter. Call if any chest pain or shortness of breath. 3. History of coronary artery stent placement - ICD9: V45.82, ICD10: Z95.5 - as above. 4. Mixed hyperlipidemia - ICD9: 272.2, ICD10: E78.2 - reinforced need to get labs if remaining on meds given his hep c hx. Can stop colestid since is on statin. If any gi issues, call immediately. If lft's elevated, will hold until given ok by GI - COMP METABOLIC PANEL - LIPID PANEL BASIC 5. Degeneration of lumbar or lumbosacral intervertebral disc - ICD9: 722.52, ICD10: M51.37 Chronic low back pain - continue meds. oarrs done. 6. Tobacco abuse - ICD9: 305.1, ICD10: Z72.0 - Cessation encouraged. - Physiologic and physical aspects of tobacco addiction as well as strategies for quitting were discussed. - Counseling was given focusing on the harmful effects of this addiction especially given the patient's medical condition(s) which will be worsened because of the chemicals in tobacco. 7. History of substance abuse - ICD9: V13.89, ICD10: Z87.898 - doing well. 8. Lumbar herniated disc - ICD9: 722.10, ICD10: M51.26 - GABAPENTIN 300 MG CAPSULE 9. Recurrent major depression in partial remission (HCC) - ICD9: 296.35, ICD10: F33.41 - continue meds. - SERTRALINE 100 MG TABLET 10. Neck pain - ICD9: 723.1, ICD10: M54.2 - I think neck is causing symptoms. Begin physical therapy. - XR CERV OTHER 4V AP/LAT/FLX/EXT - CONSULT TO PHYSICAL THERAPY 11. Headache, unspecified headache type - ICD9: 784.0, ICD10: R51 Red flags for re-assessment reviewed with patient in detail. - XR CERV OTHER 4V AP/LAT/FLX/EXT Perry Dunn MD RTO in six weeks and prn. CNOV Observed: 02/08/2018 Status: COMPLETED Source: CEDAR 11:40 AM [facility] REPOSITORY [facility] JONNYKATHIE ([id number]) 1970 M Date Time Provider Department 02/08/18 11:40 AM [facility] During your visit today, we recorded the following information about you: Pulse Respiration Blood pressure Weight 76/minute 16/minute 130/88 83.9 kg Michaela Bassett Ma 02/08/2018 12:08 PM Signed HEADACHE: Pt complaining of headaches for the past year. Over the last 2 months, the headaches have been every day. Usually starting at mid morning. Located at the back of his head. Throbbing, 6-8 out of a 10, can last last anywhere from 1 hour to all day. Takes either 400 mg of Advil every 4 hours as needed or 1000 mg of Tylenol every 4 hours as needed. Perry Dunn MD 02/08/2018 12:46 PM Signed Patient presents with: Headache HPI: Patient presents today for office visit for follow up. Nursing Notes: Michaela Bassett Ma 02/08/2018 12:08 PM Signed HEADACHE: Pt complaining of headaches for the past year. Over the last 2 months, the headaches have been every day. Usually starting at mid morning. Located at the back of his head. Throbbing, 6-8 out of a 10, can last last anywhere from 1 hour to all day. Takes either 400 mg of Advil every 4 hours as needed or 1000 mg of Tylenol every 4 hours as needed. Has not been here in several years. Was admitted for muscular chest pain in 10/21 and had a normal stress test and echo and followed with Dr. Potter after. Begun at that time in [facility]. No new chest pain. Does have shortness of breath. He does not want it worked up. Thinks it is due to smoking. Discussed tobacco cessation, including risks of continued use. Offered assistance to help quit if patient desires. No issues with lipitor has not been back for labs. Discussed needs to monitor liver while on it. He was on colestid for his cholesterol. Discussed that he does not need to do both. GASTROENTEROLOGY: had went back to [place]. Has not gotten his hep c rechecked or treated. Discussed risks of not treating. Psych: still taking zoloft. Doing well. Headaches have been there for a year. Starts in the back of the neck and moves up the scalp. No radicular symptoms. Neck cracks and pops. No head injury or neck injury. No changes in the vision or nausea. No dizziness or speech changes. Always stays in the neck and occipital area. Not the worst headache he has ever had. No thundeclap component. Some phonophobia. No photophobia. MEDICATIONS: Current Outpatient Prescriptions: atorvastatin (LIPITOR) 40 mg tablet Take 1 tablet by mouth once daily. sertraline (ZOLOFT) 100 mg tablet Take 1.5 tablets by mouth once daily. colestipol (COLESTID) 1 gram tablet Take 1 tablet by mouth twice daily. gabapentin (NEURONTIN) 300 mg capsule Take 1 capsule at night for 5 days then increase to 1 capsule twice a day for 5 days then 1 capsue three times a day as tolerated. (Patient taking differently: Take 300 mg by mouth three times daily.) aspirin, enteric coated (ASPIRIN, ENTERIC COATED) 81 mg EC tablet Take 1 tablet by mouth once daily. No current facility-administered medications for this visit. ALLERGIES: ALLERGIES Allergen Reactions - Hydrochlorothiazide Other: See Comments Caused headaches PAST MEDICAL HISTORY Diagnosis Date - CAD (coronary artery disease) had FL at one point. - Hyperlipidemia - Spinal stenosis of lumbar region PAST SURGICAL HISTORY Procedure Laterality Date - LOW BACK DISK SURGERY 2004 - PAST SURGICAL HISTORY OF [facility] FAMILY HISTORY Problem Relation Age of Onset - Hypertension Mother - COPD Mother - None Brother - None Brother - Heart Maternal Grandmother - Heart Maternal Grandfather - Heart Paternal Grandmother - Heart Paternal Grandfather - None Daughter - None Son - Hypertension Father Social History Marital status: Legally Spouse name: Years of education: Number of children: Social History Main Topics Smoking status: Current Every Day Smoker Packs/day: 1.00 Years: 25.00 Types: Cigarettes Smokeless tobacco: Never Used Alcohol use: No Drug use: No Comment: Past history of Cocaine use, meth use Sexual activity: Yes Partners with: Female Reviewed current medications, allergies, past medical history, surgical history, family history and social history today. REVIEW OF SYSTEMS All other reviewed and negative other than HPI. HEALTH MAINTENANCE: Reviewed health maintenance issues today and recommended the following in detail. VITALS: BP 130/88 Pulse 76 Resp 16 Wt 83.9 kg (185 lb) BMI 27.32 kg/m? Last 4 Encounter Wt Readings: Date: Wt: 02/08/2018 83.9 kg (185 lb) 06/23/2016 72 kg (158 lb 11.2 oz) 03/14/2016 68.5 kg (151 lb) 05/31/2012 75.3 kg (166 lb) PHYSICAL EXAMINATION: General appearance: Well appearing, alert, in no acute distress, well-hydrated, well nourished. Skin: Skin color, texture, turgor normal, no suspicious rashes or lesions Head: Normocephalic, no masses, lesions, tenderness or abnormalities Eyes: Anicteric sclera. Pupils are equally round and reactive to light. Extraocular movements are intact. Ears: External ears normal, canals clear Nose/Sinuses: Nares normal, septum midline, mucosa normal, no drainage or sinus tenderness Oropharynx: Lips, mucosa, and tongue normal, teeth and gums normal, oropharynx normal Neck: supple, tender over back of the neck. No massess Lungs: Lungs clear to auscultation. No wheezing, rhonchi, rales Heart: RRR without murmur, gallop, or rubs. No ectopy Abdomen: Normal abdominal exam, Abdomen soft, non-tender. Bowel sounds normal. No masses, organomegaly Extremities: No deformities, edema, skin discoloration, clubbing or cyanosis. Good capillary refill. Neuro: Gait normal. Reflexes normal and symmetric. Sensation grossly intact., CN normal ASSESSMENT/PLAN: 1. Chronic hepatitis C without hepatic coma (HCC) - ICD9: 070.54, ICD10: B18.2 (primary diagnosis) - reinforced need for follow up - HCV QUANT RNA BY PCR - CONSULT TO GASTROENTEROLOGY 2. Atherosclerosis of [place] coronary artery of [place] heart without angina pectoris - ICD9: 414.01, ICD10: I25.10 - continue to follow with Dr Potter. Call if any chest pain or shortness of breath. 3. History of coronary artery stent placement - ICD9: V45.82, ICD10: Z95.5 - as above. 4. Mixed hyperlipidemia - ICD9: 272.2, ICD10: E78.2 - reinforced need to get labs if remaining on meds given his hep c hx. Can stop colestid since is on statin. If any gi issues, call immediately. If lft's elevated, will hold until given ok by GI - COMP METABOLIC PANEL - LIPID PANEL BASIC 5. Degeneration of lumbar or lumbosacral intervertebral disc - ICD9: 722.52, ICD10: M51.37 Chronic low back pain - continue meds. oarrs done. 6. Tobacco abuse - ICD9: 305.1, ICD10: Z72.0 - Cessation encouraged. - Physiologic and physical aspects of tobacco addiction as well as strategies for quitting were discussed. - Counseling was given focusing on the harmful effects of this addiction especially given the patient's medical condition(s) which will be worsened because of the chemicals in tobacco. 7. History of substance abuse - ICD9: V13.89, ICD10: Z87.898 - doing well. 8. Lumbar herniated disc - ICD9: 722.10, ICD10: M51.26 - GABAPENTIN 300 MG CAPSULE 9. Recurrent major depression in partial remission (HCC) - ICD9: 296.35, ICD10: F33.41 - continue meds. - SERTRALINE 100 MG TABLET 10. Neck pain - ICD9: 723.1, ICD10: M54.2 - I think neck is causing symptoms. Begin physical therapy. - XR CERV OTHER 4V AP/LAT/FLX/EXT - CONSULT TO PHYSICAL THERAPY 11. Headache, unspecified headache type - ICD9: 784.0, ICD10: R51 Red flags for re-assessment reviewed with patient in detail. - XR CERV OTHER 4V AP/LAT/FLX/EXT Perry Dunn MD RTO in six weeks and prn. Referring Provider: SELF [[id number]] Allergies As of Date: 02/08/2018 Noted Allergy Reaction HYDROCHLOROTHIAZIDE 01/13/2011 14 - Other: See Comments Comments: Caused headaches Date Reviewed: 02/08/2018 Reviewed by: Michaela Bassett Ma - Fully Assessed Reason for Visit: Headache [52] Primary Visit Diagnosis:Chronic hepatitis C without hepatic coma (HCC) [B18.2] Other Visit Diagnoses:Atherosclerosis of [place] coronary artery of [place] heart without angina pectoris [I25.10] History of coronary artery stent placement [Z95.5] Mixed hyperlipidemia [E78.2] Degeneration of lumbar or lumbosacral intervertebral disc [M51.37] Tobacco abuse [Z72.0] History of substance abuse [Z87.898] Lumbar herniated disc [M51.26] Recurrent major depression in partial remission (HCC) [F33.41] Neck pain [M54.2] Headache, unspecified headache type [R51] Order(s):COMP METABOLIC PANEL [SQCMP] Order #: [id number] FUTURE LIPID PANEL BASIC [SQLIPB] Order #: [id number] FUTURE HCV QUANT RNA BY PCR [SQHCQPCR] Order #: [id number] FUTURE gabapentin (NEURONTIN) 300 mg capsuleTake 1 capsule by mouth three times daily for 90 days.Disp: 90 capsuleRfl: 2 sertraline (ZOLOFT) 100 mg tabletTake 1.5 tablets by mouth once daily.Disp: 45 tabletRfl: 5 XR CERV OTHER 4V AP/LAT/FLX/EXT [[id number]] Order #: [id number] FUTURE CONSULT TO PHYSICAL THERAPY [9005] Order #: [id number]: 1 CONSULT TO GASTROENTEROLOGY [9010] Order #: [id number]: 1 Prescriptions as of 02/08/2018 Sig: GABAPENTIN 300 MG CAPSULE Take 1 capsule by mouth three* SERTRALINE 100 MG TABLET Take 1.5 tablets by mouth onc* ATORVASTATIN 40 MG TABLET Take 1 tablet by mouth once d* ASPIRIN 81 MG TABLET,DELAYED * Take 1 tablet by mouth once d* Medication notes this encounter ASPIRIN 81 MG TABLET,DELAYED RELEASE >> Michaela Bassett Ma 02/08/2018 12:05 PM >> MICHAELA BASSETT MA Feb 08, 2018 12:05 PM Problem List As Of Date 02/08/2018 Noted Resolved Sciatica [M54.30] INVALID FOR*03/14/2016 Lumbago [M54.5] INVALID FOR*03/14/2016 Displacement of lumbar intervertebral disc with*INVALID FOR*03/14/2016 Degeneration of lumbar or lumbosacral intervert*INVALID FOR* Chronic pain [G89.29] INVALID FOR*03/14/2016 Tobacco abuse [Z72.0] INVALID FOR* Mixed hyperlipidemia [E78.2] INVALID FOR* Substance abuse (HCC) [F19.10] INVALID FOR*02/08/2018 More... Atherosclerosis of coronary artery of [place] he*INVALID FOR* More... Chronic hepatitis C without hepatic coma (HCC) *INVALID FOR* History of coronary artery stent placement [Z95*INVALID FOR* History of substance abuse [Z87.898] INVALID FOR* Visit Notes: >> Michaela Bassett Ma SunFeb 08, 2018 12:00 PM Status: Signed HEADACHE: Pt complaining of headaches for the past year. Over the last 2 months, the headaches have been every day. Usually starting at mid morning. Located at the back of his head. Throbbing, 6-8 out of a 10, can last last anywhere from 1 hour to all day. Takes either 400 mg of Advil every 4 hours as needed or 1000 mg of Tylenol every 4 hours as needed. Prescriptions ordered this encounter Disp Refills Start End GABAPENTIN 300 MG CAPSULE 90 c* 2 02/08/2018 05/09/2018 Route: ORAL Sig: Take 1 capsule by mouth three times daily for 90 days. SERTRALINE 100 MG TABLET 45 t* 5 02/08/2018 Route: ORAL Sig: Take 1.5 tablets by mouth once daily. Medications Discontinued During This Encounter traZODone (DESYREL) 100 mg tablet 30 t* 5 03/14/2016 02/08/2018 Class: Med Update Route: ORAL Sig: Take 1 tablet by mouth daily at bedtime. Disc: Discontinued by Patient cyclobenzaprine 10 mg ORAL tablet 90 t* 0 11/27/2011 02/08/2018 Route: ORAL Sig: Take 1 tablet by mouth three times daily as needed for Muscle Spasm. Disc: Course of therapy completed colestipol (COLESTID) 1 gram tablet 60 t* 5 06/16/2016 02/08/2018 Route: ORAL Sig: Take 1 tablet by mouth twice daily. Disc: Reason for discontinue is not on file. gabapentin (NEURONTIN) 300 mg capsule 90 c* 5 03/14/2016 02/08/2018 Sig: Take 1 capsule at night for 5 days then increase to 1 capsule twice a day for 5 days then 1 capsue three times a day as tolerated. Patient taking differently: Take 300 mg by mouth three times daily. Disc: Reason for discontinue is not on file. sertraline (ZOLOFT) 100 mg tablet 45 t* 5 06/16/2016 02/08/2018 Route: ORAL Sig: Take 1.5 tablets by mouth once daily. Disc: Reason for discontinue is not on file. Disposition: Return in about 6 weeks (around 03/22/2018). Follow-up and Disposition History Recorded Encounter Status:Closed by PERRY DUNN MD on 02/08/18 CARDIOLOGY VISIT Observed: 11/16/2017 Status: F Source: [place] REPORT 1:26 PM [facility] [address] [place] [address] OFFICE VISIT Date of Service: 11/16/17 MR#: [id number] Acct: [id number] Name: KATHIE FULLER Rep #: [id number] : 1970 Provider: Papi Potter MD Age/Sex: 46/M Location: [facility] Status: Signed HPI HPI Chief Complaint: Routine follow-up Details: KATHIE FULLER, is a 46 M with a history of hypertension, hypercholesterolemia, old myocardial infarction status post coronary stent placement on 07/15/13. I do not have the specifics of that particular admission, but apparently the patient presented with acute coronary syndrome underwent catheterization and transferred to [facility] where I performed a PCI. Unfortunately our computers are down as to the specifics of that event. He apparently also has a history of nicotine dependence, smoking less than 1 pack of cigarettes per day, and recently discontinued all his medications and developed chest pain syndrome requiring admission for observation to [facility]. During that time he underwent a echocardiogram and a stress test which was negative for inducible ischemia on 10/21. He is now here in follow-up. Patient was restarted on his medication and he has been compliant with all medications. Since her last visit he denies any chest pain, angina, shortness of breath or dyspnea on exertion. In our office today's blood pressure is 140/76, pulse is 76 and regular. Physical exam is as below. His lipids as of 10/11/17 showed LDL 135 and HDL of 37. Repeat lipids are pending. Intake Vital Signs11/16/17 Height 5 ft 9 in 11/16/17 Weight: 181 lb 11/16/17 Body Mass Index (BMI) 26.7 11/16/17 Blood Pressure 140/76 11/16/17 Respiratory Rate 16 11/16/17 Pulse Rate 76 Intake Visit Reasons: 6 wk FU Allergies hydrochlorothiazide Allergy (Verified 11/16/17 13:02) Unknown Medications Aspirin [Aspirin, Baby] 81 mg PO DAILY@0800 #30 tab.chew 10/11/17 [Rx Confirmed 11/16/17] Sertraline HCl [Zoloft] 100 mg PO DAILY #30 tab 10/11/17 [Rx Confirmed 11/16/17] atorvastatin 20 mg tablet 20 mg PO QHS #90 tab 11/16/17 [Rx Confirmed 11/16/17] lisinopril 5 mg tablet 5 mg PO DAILY #90 tab 11/16/17 [Rx Confirmed 11/16/17] metoprolol succinate ER 25 mg tablet,extended release 24 hr 12.5 mg PO DAILY #90 tab 11/16/17 [Rx Confirmed 11/16/17] FOR[facility] Medical History Atherosclerosis of coronary artery of [place] heart without angina pectoris (Chronic) Old myocardial infarction (Chronic) Hyperlipidemia (Chronic) Hypertension (Chronic) Nicotine dependence (Chronic) Depression (Chronic) Polysubstance abuse (Chronic) Surgical History History of coronary artery stent placement (Chronic 07/15/13) Previous back surgery (Chronic) Social History Smoking Status: Current every day smoker ROS Const Const: Negative for fatigue, weakness, difficulty sleeping, frequent falls, headache(s) or excessive sweating Eyes Eyes: Negative for loss of peripheral vision, transient loss of vision, blurry vision or double vision ENT ENT: Negative for headache(s), dizziness, Nosebleed/epistaxis or balance problems Cardio Chest Pain: No Edema: None Muscle aches with walking: None Resp Respiratory: Positive for SOB with activity; negative for SOB at rest, SOB orthopnea\SOB lying down or paroxysmal nocturnal dyspnea GI GI: Negative nausea or heartburn : Negative for hematuria Musc Musc: Negative for muscle aches/ myalgia, muscle weakness, joint pain or balance problems Skin Skin: Negative non-healing lesions, unusual bruising or rash Neuro Neuro: Negative for weakness, frequent falls, blurry vision, headache(s), dizziness, lightheadedness, orthostatic symptoms or double vision De Hematologic/Lymphatic: Negative for easy bruising Endo Endo: Negative for fatigue, excessive sweating or increased thirst/drinking Psych Psych: Negative for anxiety or depression Allergy Allergy/Immunology: Negative for hives, Negative for rash Cardiology Exam Const Appearance: cooperative, healthy appearing and no acute distress Nutritional Appearance: well nourished Orientation: alert, oriented x3 and oriented to person Head Head: normal to inspection, atraumatic and normocephalic Nose: external nose normal Face and Sinus: face symmetric Mouth: oral mucosae normal Eyes General: appearance normal, both eyes and all related structures Eyelids: eyelids normal Conjunctivae: conjunctivae normal Pupils: PERRL and normal by confrontation EOM: EOM intact bilaterally Neck Neck: normal visual inspection and full ROM Carotids: normal carotid upstroke Chest Chest inspection: normal inspection of the chest Auscultation: Bilateral: Clear to Auscultation Cardio Palpation: normal PMI Rate: regular rate Rhythm: regular rhythm Heart sounds: S1 normal and S2 normal GI GI: normal to inspection, no hepatosplenomegaly and bowel sounds present Neuro General: alert, oriented x3, awake, CN's II-XI intact bilaterally and moves all extremities Skin Skin: no rashes or lesions noted Extremities Pulses: Normal: Right Femoral Pulse, Left Femoral Pulse, Right Dorsalis Pedis Pulse, Left Dorsalis Pedis Pulse, Right Posterior Tibial Pulse, Left Posterior Tibial Pulse, Right Radial Pulse, Left Radial Pulse Lower Extremity Edema: None: Bilateral Psych Psychological: normal affect Assessment AND Plan 1. Atherosclerosis of coronary artery of [place] heart without angina pectoris I25.10 WYO-OQL-Dul-Distal LAD, KARTIK-D1 and POBA-D2 07/15/13 PCI-KARTIK-Mid Cx 06/19/2013 Plan 1. Coronary artery disease: No anginal symptoms at this time. No indication for any additional testing. I recommended he continue his baby aspirin, lisinopril and Lopressor. It is been greater than 3 years since his angioplasty, so we will hold off on putting him back on his Plavix. His most recent stress test in October 2017 was negative for inducible ischemia. Orders Orders: 2. Hyperlipidemia E78.5 Plan 2. Hyperlipidemia: Patient is recently restarted his Lipitor. Repeat lipid profile in 6 weeks time. His LDL should be less than 70. 3. Return office in 6 month This note was generated using a voice recognition system and there may be incorrect words, spelling or punctuation that were not noted when reviewing the office note prior to saving. Orders Orders: Plan Detail Other Orders Orders: Other Medications Refilled: Follow Up +6m (Tariq) Coding Level of Care Code Off vis,est,level 3 Diagnoses Atherosclerosis of coronary artery of [place] heart without angina pectoris I25.10 Hyperlipidemia E78.5 Coding Level of Care Code Off vis,est,level 3 Diagnoses Atherosclerosis of coronary artery of [place] heart without angina pectoris I25.10 Hyperlipidemia E78.5 11/16/17 1326 <Electronically signed by Papi Potter MD> Date Papi Potter MD Cosigner Signature: Date (if applicable) CC: Perry Dunn MD 12 LEAD ELECTROCARDIOGRAM Observed: 10/15/2017 Status: F Source: [place] 3:27 PM [facility] Cardiovascular Services [address] [place] [address] 12 Lead EKG 10/11/17 0600 MR#: [id number] Acct: [id number] Name: KATHIE FULLER Rep #: [id number] : 1970 46 From: Toño Berg MD Attending Dr: Rupal Kramer MD Status: DIS DEREK Ordering Dr: Papi Potter MD Date: 10/11/17 Location: [facility] Sex: M C Admitted: 10/10/17 Test Reason : AM EKG Blood Pressure : / mmHG Vent. Rate : 060 BPM Atrial Rate : 060 BPM P-R Int : 196 ms QRS Dur : 096 ms QT Int : 444 ms P-R-T Axes : 027 -13 -15 degrees QTc Int : 444 ms Normal sinus rhythm Inferior infarct , age undetermined Abnormal ECG When compared with ECG of 10-OCT-2017 10:09, MANUAL COMPARISON REQUIRED, DATA IS UNCONFIRMED Confirmed by TOÑO BERG MD ([id number]), commercial production editor VICTORIA ZHU ([id number]) on 10/15/2017 3:26:53 PM Referred By: CHRISTIANO Confirmed By:TOÑO BERG MD 10/15/17 1526 Date Toño Berg MD CC: Papi Potter MD; Perry Dunn MD Signed 12 LEAD ELECTROCARDIOGRAM Observed: 10/15/2017 Status: F Source: [place] 2:01 PM [facility] Cardiovascular Services [address] [place] [address] 12 Lead EKG 10/10/17 0948 MR#: [id number] Acct: [id number] Name: KATHIE FULLER Rep #: [id number] : 1970 46 From: Toño Berg MD Attending Dr: Rupal Kramer MD Status: DIS DEREK Ordering Dr: Shazia Moran MD Date: 10/10/17 Location: [facility] Sex: M C Admitted: 10/10/17 Test Reason : CHEST PAIN Blood Pressure : / mmHG Vent. Rate : 077 BPM Atrial Rate : 077 BPM P-R Int : 196 ms QRS Dur : 076 ms QT Int : 406 ms P-R-T Axes : 015 -15 -06 degrees QTc Int : 459 ms Normal sinus rhythm Inferior infarct , age undetermined Abnormal ECG Confirmed by TOÑO BERG MD ([id number]), commercial production editor VICTORIA ZHU ([id number]) on 10/15/2017 2:00:41 PM Referred By: YANDEL Confirmed By:TOÑO BERG MD 10/15/17 1400 Date Toño Berg MD CC: Shazia Moran MD; Perry Dunn MD Signed 12 LEAD ELECTROCARDIOGRAM Observed: 10/15/2017 Status: F Source: [place] 2:00 PM [facility] Cardiovascular Services [address] [place] [address] 12 Lead EKG 10/10/17 1009 MR#: [id number] Acct: [id number] Name: KATHIE FULLER Rep #: [id number] : 1970 46 From: Toño Berg MD Attending Dr: Rupal Kramer MD Status: DIS DEREK Ordering Dr: Shazia Moran MD Date: 10/10/17 Location: [facility] Sex: M C Admitted: 10/10/17 Test Reason : REPEAT Blood Pressure : / mmHG Vent. Rate : 077 BPM Atrial Rate : 077 BPM P-R Int : 196 ms QRS Dur : 080 ms QT Int : 406 ms P-R-T Axes : 022 -17 -07 degrees QTc Int : 459 ms Normal sinus rhythm Inferior infarct , age undetermined Abnormal ECG Confirmed by TOÑO BERG MD ([id number]), commercial production editor VICTORIA ZHU ([id number]) on 10/15/2017 2:00:11 PM Referred By: GENTRY Confirmed By:TOÑO BERG MD 10/15/17 1400 Date Toño Berg MD CC: Shazia Moran MD; Perry Dunn MD Signed DISCHARGE SUMMARY Observed: 10/11/2017 Status: F Source: [place] 4:08 PM [facility] Medical Records Department [address] [place] [address] Discharge Summary 10/11/17 1503 MR#: [id number] Acct: [id number] Name: KATHIE FULLER Rep #: [id number] : 1970 46 From: Cristiano RIVERA PCP: Perry Dunn MD Status: DIS DEREK Y Location: [place] [address] Discharge Date and Diagnosis Date of Admission: 10/10/17 Date of Discharge: 10/11/17 - Primary Discharge Diagnosis Chest pain - musculoskeletal CAD HLD Tobacco abuse Anxiety/Depression - Secondary Discharge Diagnosis Chronic Problems Dyslipidemia (Chronic) Tobacco abuse (Chronic) CAD (coronary artery disease) (Chronic) 4 stents last 06/18 Hospital Course and Treatment Imaging Results: Echo: Interpretation Summary Moderately dilated left ventricle. The estimated ejection fraction is 45 %. Normal diastology for age. Trivial mitral valve insufficiency. Right ventricular systolic pressure estimated to be 23 mmHg. Compard to echo report dated 12/22/2009, LV function has worsedned from 65% to 45% with new inferior posterior hypokinesis. RAD/Chest 1 View (Portable) IMPRESSION: Normal x-ray examination of the chest. Potter - Cardiology Operations: None Procedures: 2-D Echocardiogram, Stress test Summary of Care Provided: Physical exam on day of discharge: General: Resting comfortably NAD Psych: A/Ox3 normal affect HEENT: PEARRLA AT NC Neck: Supple NT CV: RRR no m/t/r/g/h Resp: CTA Abd: [id number] Soft NT no guarding or rigidity Ext: DP2+= no edema Skin: W/D normal turgor Lymph/Heme: No active bleeding or adenopathy Neuro: CN2-12 intact Hospital course: The patient is a 46 year old M with a hx of CAD who had taken himself off of his asa, plavix, and antihypertensives and a hx of angioplasty in 2012, and a smoking history, who presented to the hospital with chest pain. He had a negative EKG, negative CXR, and negative troponin. He was admitted for chest pain workup and the following morning had an echo and stress test. Cardiology was consulted. Stress test was negative. He was started on asa, toprol, lisinopril, and atorvastatin. Cardiology did not recommend restarting plavix at this time. He had also run out of zoloft so a new script was given for this as he complained of poorly controlled anxiety lately. It was felt that his CP was musculoskeletal in origin. We encouraged nicotine abuse cessation, at this time he declined the desire to start a patch as an outpatient. He was discharged home in stable condition. Please follow up with your PCP in 1-2 weeks. This patient was seen by Cristiano Chance PA-C under the supervision of Doctor Kramer. [] Discharge Diet: Low fat/ Low Cholesterol, 2000 mg Sodium Diet Discharge Activity: Return to Normal Activity Home Medications: Medications to take at Discharge Aspirin [Aspirin, Baby] 81 mg PO DAILY@0800 #30 tab.chew 10/11/17 Atorvastatin Calcium [Lipitor] 20 mg PO QHS #30 tab 10/11/17 Lisinopril [Zestril] 5 mg PO DAILY #30 tab 10/11/17 Metoprolol Succinate 12.5 mg PO DAILY #30 tab.er.24h 10/11/17 Sertraline HCl [Zoloft] 100 mg PO DAILY #30 tab 10/11/17 Following Prescrptions Were Given to Patient: Aspirin [Aspirin, Baby] 81 mg PO DAILY@0800 #30 tab.chew Atorvastatin Calcium [Lipitor] 20 mg PO QHS #30 tab Lisinopril [Zestril] 5 mg PO DAILY #30 tab Metoprolol Succinate 12.5 mg PO DAILY #30 tab.er.24h Sertraline HCl [Zoloft] 100 mg PO DAILY #30 tab Primary Care Physician: Perry Dunn MD [Primary Care Provider] - Please follow up with your Primary Care Physician in: 1-2 weeks Disposition: Home Minutes spent on discharge:: 35 Patient Condition:: Stable Meaningful Use Info Meaningful Use Diagnoses (Choose all that apply): None applicable 10/11/17 1511 <Electronically signed by Cristiano RIVERA> Date Cristiano RIVERA 10/11/17 1608<Electronically signed by Rupal Kramer MD> Cosigner Signature (if applicable): Date Rupal Kramer MD CC: MIGUEL Chance; Rupal Kramer MD; Perry Dunn MD Signed DISCHARGE INSTRUCTION Observed: 10/11/2017 Status: F Source: [place] 10:40 AM [facility] Medical Records Department [address] [place] [address] Instructions for Home/Discharge Instructions 10/11/17 1039 MR#: [id number] Acct: [id number] Name: KATHIE FULLER Rep #: [id number] : 1970 46 From: Cristiano RIVERA PCP: Perry Dunn MD Status: ADM DEREK - Discharge Diagnoses Current Active Problems: Current Active and Chronic Problems Chest pain (Acute) You will use the following diet at home:: Cardiac Your food should be the consistency of: Regular Your liquids should be the consistency of: Regular/Thin Discharge Activity: Return to Normal Activity Allergies/Adverse Reactions: Allergies hydrochlorothiazide Allergy (Verified 10/10/17 09:31) Unknown Medications to take at Discharge Aspirin E.C. [Ecotrin] 81 mg PO DAILY@0800 tablet 10/11/17 Atorvastatin Calcium [Lipitor] 20 mg PO QHS #30 tab 10/11/17 Lisinopril [Zestril] 5 mg PO DAILY #30 tab 10/11/17 Sertraline HCl [Zoloft] 100 mg PO DAILY #30 tab 10/11/17 The following prescriptions were given: Atorvastatin Calcium [Lipitor] 20 mg PO QHS #30 tab Lisinopril [Zestril] 5 mg PO DAILY #30 tab Sertraline HCl [Zoloft] 100 mg PO DAILY #30 tab Primary Care Physician: Perry Dunn MD [Primary Care Provider] - Please follow up with your Primary Care Physician in: 1-2 weeks Proposed Discharge Date: 10/11/17 10/11/17 1040 <Electronically signed by Cristiano RIVERA> Date Cristiano RIVERA CC: Papi Potter MD; Perry Dunn MD CBC-COMPLETE BLOOD CNT Collected: 10/11/2017 Status: F Source: [place] NO DIFF 6:10 AM [facility] TYPE CODE TESTS RESULT OUT OF RANGE REFERENCE UNITS LAB L100.1000 4.4-11.0 K/mm3 Normal WBC 8.2 LAB L100.1200 4.6-6.2 M/mm3 Normal RBC 5.19 LAB L100.1300 13.0-16.5 g/dl Normal HGB 15.8 LAB L100.1400 40-54 % Normal HCT 45.6 LAB L100.1500 80-94 fL Normal MCV 87.9 LAB L100.1600 27.0-32.0 pg Normal MCH 30.4 LAB L100.1700 32-36 g/gl Normal MCHC 34.6 LAB L100.1810 11.6-14.6 % Normal RDW CV 12.9 LAB L100.1820 35.1-43.9 fl Normal RDW SD 40.9 LAB L100.1900 150-450 K/mm3 Normal PLT 225 LAB L100.2000 6.2-12.0 fl Normal MPV 8.9 Performed By: #### L100.0500 #### [facility] [address] [place], [address] PROTHROMBIN TIME W/INR Collected: 10/11/2017 Status: F Source: [place] 6:10 AM [facility] TYPE CODE TESTS RESULT OUT OF RANGE REFERENCE UNITS LAB L300.4150 11.7-14.9 SECONDS Normal PROTIME 13.7 LAB L300.4200 Normal INR 1.1 Performed By: #### L300.3900, L300.4310 #### [facility] [address] [place], [address] PARTIAL THROMBOPLAST Collected: 10/11/2017 Status: F Source: [place] TIME 6:10 AM [facility] TYPE CODE TESTS RESULT OUT OF RANGE REFERENCE UNITS LAB L300.4310 24.1-36.2 Seconds Normal PTT 27.6 Performed By: #### L300.3900, L300.4310 #### [facility] [address] [place], [address] BASIC METABOLIC Collected: 10/11/2017 Status: F Source: [place] PROFILE (BMP) 6:10 AM [facility] TYPE CODE TESTS RESULT OUT OF RANGE REFERENCE UNITS LAB L501.0100 74-106 mg/dL Normal GLU 90 Result Comment: Please note revised GLUCOSE reference range effective 2017. LAB L501.1000 7-18 mg/dL Normal BUN 12 LAB L501.1100 0.70-1.30 mg/dL Normal CREAT,SERUM 0.76 Result Comment: The validity of the calculated GFR AND GFRAA in patients over 70 years has not been determined. Clinical correlation is essential. LAB L501.1110 >60 mL/min Normal EST GFR 116 Result Comment: Non- GFR Calc LAB L501.1115 >60 mL/min Normal EST GFR - AA 140 Result Comment: GFR Calc LAB L501.1255 ml/min Normal Estimated CRCL 120.16 LAB L501.1300 10-20 RATIO BUN/CRE Normal 15.7 LAB L501.2200 8.5-10 mg/dL Low .1 CA 8.4 LAB L501.5300 136-14 mmol/L 5 NA Normal 140 LAB L501.5600 3.5-5. mmol/L 1 K Normal 3.6 LAB L501.5900 98-107 mmol/L High CL 108 LAB L501.6100 21.0-3 mmol/L 2.0 CO2 Normal 26.0 LAB L501.6200 5-15 GAP Normal 6 Performed By: #### L500.2500, L500.4100 #### [facility] [address] [place], [address] LIPID PROFILE Collected: 10/11/2017 Status: F Source: [place] 6:10 AM [facility] TYPE CODE TESTS RESULT OUT OF RANGE REFERENCE UNITS LAB L501.4900 200 mg/dL High CHOL 226 Result Comment: <200 mg/dL Desirable 200-240 mg/dL Borderline >240 mg/dL High Risk LAB L501.5000 mg/dL High TRIG 270 Result Comment: The drugs N-Acetylcysteine and Metamizole may falsely depress this assay. Serum Triglycerides Reference Interval Normal <150 mg/dL Borderline high 150 - 199 mg/dL High 200 - 499 mg/dL Very High > or = 500 mg/dL LAB L501.6400 mg/dL Low HDL 37 Result Comment: The drugs N-Acetylcysteine and Metamizole may falsely depress this assay. Reference Range HDL <40 mg/dL Low HDL Cholesterol HDL >or= 60 mg/dL High HDL Cholesterol LAB L501.6500 0-130 mg/dL High LDL 135 LAB L501.6600 5-40 mg/dL High VLDL 54 Performed By: #### L500.2500, L500.4100 #### [facility] [address] [place], [address] TROPONIN-I Collected: 10/11/2017 Status: F Source: [place] 12:01 AM [facility] Order Comment: 'TROP' Serial specimen #1, #2, #3, or #4: 4 TYPE CODE TESTS RESULT OUT OF RANGE REFERENCE UNITS LAB L501.4010 <0.06 ng/mL Normal < 0.02 TROPONIN-I Result Comment: TROPONIN-I EXPECTED VALUES <0.05 NEGATIVE 0.06 - 0.59 AT RISK OF FL > OR = 0.60 SUGGEST FL Performed By: #### L501.4010 #### [facility] [address] [facility] [place], [address] EMERGENCY DEPARTMENT Observed: 10/10/2017 Status: F Source: [place] SUMMARY 6:01 PM [facility] Medical Records Department [address] [facility] [place] [address] Emergency Department Summary 10/10/17 0944 MR#: [id number] Acct: [id number] Name: KATHIE FULLER Rep #: [id number] : 1970 46 From: Shazia Moran MD PCP: Perry Dunn MD Status: ADM DEREK - ER Visit Summary Date of Service: 10/10/17 Chief Complaint: Chest pain History of Present Illness: The patient is a 46 M with known history of coronary artery disease and prior FL. Patient has 4 cardiac stents, most recent placed in 2012. Patient presents with a one-week history of waxing and waning chest pain. He describes as a tightness in the left upper chest and today has pain into his arm. He does get short of breath with exertion, especially climbing a flight of steps. Patient was seen in the ER on the for the same complaint and refused admission at that time. He has not followed up with his primary care doctor or his athletic instructor. Physical Examination: Blood pressure is 158/107, temperature 97.9, heart rate 84, respiratory rate 16, pulse ox 99% on room air. Patient is in no acute distress and is nontoxic appearing. Head and neck examination is normal. Heart is regular rate and rhythm. Palpable pulses are noted throughout. Lungs are clear with good air movement throughout. Abdomen is soft and nontender. Bowel sounds are noted. Extremity examination is unremarkable with full range of motion. Neurologic examination reveals no focal deficits. Test Results: EEG is sinus at 77 with no sign of acute ischemia. Repeat 20 minutes later is unchanged. CBC and chemistry studies are normal. Troponin is less than 0.02. Chest x-ray is unremarkable. Emergency Department Course and Treatment: Patient received aspirin and sublingual nitroglycerin here. On repeat evaluation he is currently pain-free. He has agreed to hospital admission. Hospitalist will be contacted for admission. Treatment Plan: [] Disposition: Admit Impression: Chest pain This note was generated with [employer] dictation software. It may contain incorrect words, spelling, and punctuation that were not noted in review of the chart prior to signing ED Disposition - Plan for ED Patient: Chief Complaint: Chest Pain Referrals: Perry Dunn MD [Primary Care Provider] - What to do if you have Problems For any increased pain, shortness of breath, bleeding, nausea or vomiting, chest pain, or any unexpected problems, contact your Primary Care Provider. Call [facility] ([phone]) or report to the closest Emergency Room. Call 911 if necessary. 10/10/17 1800 <Electronically signed by Shazia Moran MD> Date Shazia Moran MD Cosigner Signature (If Indicated): Date CC: Perry Dunn MD TROPONIN-I Collected: 10/10/2017 Status: F Source: [place] 5:57 PM [facility] Order Comment: 'TROP' Serial specimen #1, #2, #3, or #4: 3 TYPE CODE TESTS RESULT OUT OF RANGE REFERENCE UNITS LAB L501.4010 <0.06 ng/mL Normal 0.03 TROPONIN-I Result Comment: TROPONIN-I EXPECTED VALUES <0.05 NEGATIVE 0.06 - 0.59 AT RISK OF FL > OR = 0.60 SUGGEST FL Performed By: #### L501.4010 #### [facility] [address] [place], [address] ECHOCARDIOGRAM COMPLETE Observed: 10/10/2017 Status: F Source: [place] 4:23 PM [facility] Cardiovascular Services [address] [place] [address] Echo Complete 10/10/17 1446 MR#: [id number] Acct: [id number] Name: KATHIE FULLER Rep #: [id number] : 1970 46 From: Papi Potter MD Attending Dr: Rupal Kramer MD Status: ADM DEREK Ordering Dr: Rupal Kramer MD Date: 10/10/17 Location: [facility] Sex: M C Admitted: 10/10/17 Reason For Study: Chest Pain Procedure This was a 2D Doppler, Color Flow transthoracic echocardiogram. Exam performed portable in patient room. Left Ventricle Moderately dilated left ventricle. The estimated ejection fraction is 45 %. Normal diastology for age. Infero-Basal: Severely Hypokinetic. Mid-Posterior: Mildly hypokinetic. Right Ventricle Normal size and thickness. Normal systolic function. Atria Normal left atrium. Normal right atrium. Normal atrial septum. Mitral Valve The mitral valve is structurally normal. No prolapse or stenosis seen. Trivial mitral valve insufficiency. Tricuspid Valve Normal tricuspid valve. Trivial tricuspid valve insufficiency. Right ventricular systolic pressure estimated to be 23 mmHg. Aortic Valve Trisinus/trileaflet aortic valve. Normal aortic valve. Pulmonic Valve Normal pulmonic valve. Great Vessels Normal aortic root. Normal arch. Normal inferior vena cava. Inferior vena cava collapse with sniff. Pericardium/Pleural No pericardial effusion. MMode/2D Measurements AND Calculations LVIDd: 5.5 cm IVSd: 1.1 cm Ao root diam: 3.3 cm LVIDs: 4.0 cm LVPWd: 0.85 cm LA dimension: 3.8 cm RVDd: 3.4 cm FS: 27.4 % LAV(MOD-bp): 37.6 ml LA A4 area: 14.8 cm2 RA A4 area: 13.0 cm2 LAV(MOD-bp) Indexed: 19.0 ml/m2 LAV(MOD-sp2): 34.2 ml LAV(MOD-sp4): 34.7 ml Doppler Measurements AND Calculations MV E max william: 67.4 cm/sec Lat Peak E' William: 12.8 cm/sec Med Peak E' William: 6.8 cm/sec MV A max william: 52.5 cm/sec E/E' lat: 5.3 E/E' med: 9.8 MV E/A: 1.3 Ao V2 max: 109.3 cm/sec LV V1 max: 81.5 cm/sec PA V2 max: 92.3 cm/sec Ao max P.8 mmHg LV V1 max P.7 mmHg Ao V2 mean: 87.2 cm/sec Ao mean P.2 mmHg Ao V2 VTI: 23.2 cm TR max william: 203.5 cm/sec TR max P.6 mmHg Interpretation Summary Moderately dilated left ventricle. The estimated ejection fraction is 45 %. Normal diastology for age. Trivial mitral valve insufficiency. Right ventricular systolic pressure estimated to be 23 mmHg. Compard to echo report dated 12/22/2009, LV function has worsedned from 65% to 45% with new inferior posterior hypokinesis. Ordering Physician: Rupal Kramer Referring Physician: Perry Dunn Performed By: Amy Barr, TIGRE, RVT 10/10/17 1623 Date Papi Potter MD CC: Rupal Kramer MD; Perry Dunn MD Date Dictated: 10/10/17 1446 Date Transcribed: 10/10/17 162 [facility]: Signed CONSULTATION Observed: 10/10/2017 Status: F Source: [place] 3:42 PM [facility] Medical Records Department [address] [place] [address] Consultation 10/10/17 1529 MR#: [id number] Acct: [id number] Name: KATHIE FULLER Rep #: [id number] : 1970 46 From: Papi Potter MD PCP: Perry Dunn MD Status: ADM DEREK Y Location: [place] [address] Problem List (1) Chest pain Status: Acute Qualifiers: Ischemic chest pain type: unspecified angina pectoris type (2) Dyslipidemia Status: Chronic (3) HTN (hypertension) Status: Acute Qualifiers: Hypertension type: essential hypertension Qualified Code(s): I10 - Essential (primary) hypertension (4) Tobacco abuse Status: Chronic (5) CAD (coronary artery disease) Status: Chronic Qualifiers: Coronary Disease-Associated Artery/Lesion type: unspecified vessel or lesion type Associated angina: with unspecified angina Comment: 4 stents last 06/18 Reason for Consult Date of Consultation: 10/10/17 Reason for Consultation: Chest pain, coronary disease, status post stent, hypertension, tobacco abuse, hypercholesterolemia History of Present Illness: The patient is a 46 year old M, well-known to Dr. Berg myself, with a history of hypertension, hypercholesterolemia, tobacco abuse, [id number] smoking history, coronary artery disease status post angioplasty and stenting to his LAD, left circumflex artery, and moderate LV dysfunction with an EF around 45% with inferior posterior hypokinesis. On 07/15/13 the patient underwent successful angioplasty and stenting of the mid distal LAD, diagonal #1, and proximal LAD. Unfortunately the patient did not follow-up in our office since 2014 and is missed several appointments. Patient was doing well up until the last several weeks when he is developed progressively worsening substernal chest pressure, dyspnea on exertion, shortness of breath and tingling down his right arm. He has no associated nausea, vomiting or diaphoresis with these symptoms. 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 His first 2 troponins have been negative thus far. On further history the patient has discontinued his aspirin, Plavix, antihypertensive medications as well as his cholesterol medication but takes Zoloft for depressive disease. Unfortunately continues to smoke around one pack of cigarettes per day. [] Past Medical History Allergies/Adverse Reactions: Allergies hydrochlorothiazide Allergy (Verified 10/10/17 09:31) Unknown Home Medications: Ambulatory Orders Medication Instructions Recorded Sertraline HCl [Zoloft] 100 mg PO DAILY 10/10/17 Past Medical History (Chronic Problems): Chronic Problems Dyslipidemia (Chronic) Tobacco abuse (Chronic) CAD (coronary artery disease) (Chronic) 4 stents last 06/18 Surgical History: no surgical history, - - low back surgery for spinal canal stenosis Psychiatric History: Depression - *Family History Maternal History Items: No pertinent history Paternal History Items: No pertinent history Smoking Status: Current every day smoker Tobacco Use: Cigarettes Alcohol: None Drugs: None Review of Systems - Review of Systems General: Denies: Fever, Night Sweats, Fatigue Cardiovascular: Reports: Chest Discomfort, Chest Discomfort with Exertion, Shortness of Breath, Shortness of Breath with Exertion. Denies: Orthopnea, PND, Peripheral Edema, Palpitations, Lightheadedness, Dizziness, Near Syncope, Syncope Respiratory: Denies: Cough, Sputum Production, Hemoptysis Gastrointestinal: Denies: Hematemesis, Hematochezia, Melena Genitourinary: Denies: Dysuria, Hematuria Skin: Denies: Rash Subjectve: Patient laying in bed, no acute distress. Objective: Vital Signs Temp Pulse Resp BP Pulse Ox 97.7 F L 63 16 113/73 98 10/10/17 11:50 10/10/17 11:54 10/10/17 11:50 10/10/17 11:50 10/10/17 13:00 Oxygen Delivery Method Room Air Weight: 182 lb 1.629 oz Body Mass Index (BMI) 26.9 General: Awake, Alert, Oriented x 3 HEENT: PERRL, EOMI, Sclera Non Icteric Neck: Supple, Good ROM, No Lymph Node Enlargement Lungs: Clear to auscultation Cardiovascular: Regular Rhythm, Normal S1, Normal S2, No Murmurs, No Rubs, No Gallops Vascular: No Carotid Bruits, Normal Femoral Pulses, Normal Radial Pulses, Normal Dorsalis Pedal Pulse, Normal Posterior Tibial Pulses Abdomen: Bowel Sounds Present, Soft, Non Tender, No HSM, No Organomegaly Extremities: No Cyanosis, No Clubbing, No edema Neurological: No Focal Motor or Sensory Deficit 10/10/17 14:03: Troponin I < 0.02 Rhythm: EKG: As above ECHO: Pending Stress Test: Cardiac Cath: PCI: CT Surgery: Holter monitor: EPS: PPM: CXR: Chest CT Scan: Assessment/Plan 1. Coronary artery disease: Patient has recurrent substernal chest pressure, with associated dyspnea on exertion, shortness of breath, in the face of ongoing tobacco abuse and cessation of all cardiac medications including aspirin, Plavix, cholesterol medications and antihypertensive medications. His most recent angioplasty took place in 2012 which involved angioplasty and stenting to the LAD and diagonal system. His repeat catheterization by Dr. Berg in 2013 demonstrated widely patent stents to the LAD, left circumflex, and diagonal branches. I have reviewed those films today. I recommend the patient be reinitiated on baby aspirin 81 mg p.o. daily, restart Lopressor 25 mg p.o. twice daily after his stress test has been completed, restart lisinopril 5 mg p.o. daily. If his stress test is markedly abnormal particularly for anterior ischemia would recommend loading him with 300 mg of Plavix followed by 75 mg p.o. daily and he will require repeat catheterization probably on Sunday. 2.: Recommend obtaining a repeat lipid profile in restarting Lipitor 80 mg p.o. nightly. 3. Tobacco cessation: I had a long and thorough discussion with patient regarding tobacco cessation, and have strongly recommended discontinuation of all tobacco products. 4. Thank you very much for the opportunity to participate in the cardiac care of your patient. Consultation time took place between 215 and 2:45 PM. Code Visit Inpatient E AND M: [id number] Init Hosp L2 10/10/17 1542 <Electronically signed by Papi Potter MD> Date Papi Potter MD Cosigner Signature (if applicable): Date CC: Papi Potter MD; Perry Dunn MD Signed TROPONIN-I Collected: 10/10/2017 Status: F Source: [place] 2:03 PM [facility] Order Comment: 'TROP' Serial specimen #1, #2, #3, or #4: 2 TYPE CODE TESTS RESULT OUT OF RANGE REFERENCE UNITS LAB L501.4010 <0.06 ng/mL Normal < 0.02 TROPONIN-I Result Comment: TROPONIN-I EXPECTED VALUES <0.05 NEGATIVE 0.06 - 0.59 AT RISK OF FL > OR = 0.60 SUGGEST FL Performed By: #### L501.4010 #### [facility] [place], [address] LIPID PROFILE Collected: 10/10/2017 Status: F Source: [place] 2:02 PM [facility] TYPE CODE TESTS RESULT OUT OF RANGE REFERENCE UNITS LAB L501.4900 200 mg/dL High CHOL 214 Result Comment: <200 mg/dL Desirable 200-240 mg/dL Borderline >240 mg/dL High Risk LAB L501.5000 mg/dL High TRIG 226 Result Comment: The drugs N-Acetylcysteine and Metamizole may falsely depress this assay. Serum Triglycerides Reference Interval Normal <150 mg/dL Borderline high 150 - 199 mg/dL High 200 - 499 mg/dL Very High > or = 500 mg/dL LAB L501.6400 mg/dL Low HDL 37 Result Comment: The drugs N-Acetylcysteine and Metamizole may falsely depress this assay. Reference Range HDL <40 mg/dL Low HDL Cholesterol HDL >or= 60 mg/dL High HDL Cholesterol LAB L501.6500 0-130 mg/dL High LDL 132 LAB L501.6600 5-40 mg/dL High VLDL 45 Performed By: #### L500.4100 #### [facility] [address] [place], [address] HISTORY AND PHYSICAL Observed: 10/10/2017 Status: F Source: [place] EXAM 12:25 PM [facility] Medical Records Department [address] [place] [address] History and Physical 10/10/17 1113 MR#: [id number] Acct: [id number] Name: KATHIE FULLER Rep #: [id number] : 1970 46 From: Rupal Kramer MD PCP: Perry Dunn MD Status: ADM DEREK Y Location: [place] [address] Problem List (1) Chest pain Status: Acute Qualifiers: Ischemic chest pain type: unspecified angina pectoris type (2) CAD (coronary artery disease) Status: Chronic Qualifiers: Coronary Disease-Associated Artery/Lesion type: unspecified vessel or lesion type Associated angina: with unspecified angina Comment: 4 stents last 06/18 (3) Tobacco abuse Status: Chronic History of Present Illness Date of Admission: 10/10/17 Chief Complaint: Chest pain, ongoing for 1 week The patient is a 46 year old M with PMHx of CAD s/p stents, nicotine use disorder comes in with chest pain, which is substernal, radiates to left arm, associated with tingling/the left. This pain has been ongoing for a week, comes on and lasts for about few minutes to an hour. Denies nausea, vomiting, dizziness or palpitations or orthopnea or PND. Previous cardiac cath showed Left anterior descending artery with previously placed stents in the proximal LAD and distal LAD with no significant stenosis, with mild ostial diagonal stenosis with mild diffuse disease.Dominant left circumflex artery with previously placed stent in the proximal vessel which is patent and large obtuse marginal branch with no significant stenosis and a bifurcating vessel. Continuation of circumflex artery with ostial 60% stenosis which does not appear to be significant. Nondominant right coronary artery with mild diffuse disease. Mild left ventricle systolic dysfunction with mild anterior hypokinesis. Estimated ejection fraction 45-50%. Patient was seen earlier in ED on 10/04/2017 for similar complains of chest pain, just admission, promised to follow up with Dr. Martínez in the outpatient. Patient did not follow-up. Cannot remember his last 2D echo or stress test. In the ED, vitals were stable. Patient states his chest pain improved with nitro. EKG is unchanged from previous. Past Medical History Past Medical History (Chronic Problems): Chronic Problems Dyslipidemia (Chronic) Tobacco abuse (Chronic) CAD (coronary artery disease) (Chronic) 4 stents last 06/18 Allergies hydrochlorothiazide Allergy (Verified 10/10/17 09:31) Unknown Home Medications: Ambulatory Orders Medication Instructions Recorded Sertraline HCl [Zoloft] 100 mg PO DAILY 10/10/17 Surgical History: no surgical history, - - low back surgery for spinal canal stenosis Psychiatric History: Depression Smoking Status: Current every day smoker Tobacco Use: Cigarettes Alcohol: None Drugs: None - *Family History Maternal History Items: No pertinent history Paternal History Items: No pertinent history Review of Systems Constitutional: Denies: Anorexia, Chills, Fever, Night Sweats, Malaise, Weakness, Weight Change Eyes: Denies: Blurred vision, Cataracts, Conjunctivae Inflammation, Pain, Redness HEENT: Denies: Difficulty Hearing, Difficulty Swallowing, Head Aches, Hearing Changes, Nasal bleeding, Sinus Congestion, Sinus Drainage, Sore Throat Cardiovascular: Denies: Chest Pain, Claudication, Chest Pressure, Chest Tightness, Orthopnea, Palpitations, Paroxysmal Noc. Dyspnea Respiratory: Denies: Cough, Hemoptysis, Shortness of breath at rest, Shortness of breath upon exertion, Sputum production Gastrointestinal: Denies: Abdominal Pain, Constipation, Hematemesis, Hematochezia, Nausea, Vomiting Genitourinary: Denies: Dysuria, Frequency, Incontinence Musculoskeletal: Denies: Joint Pain, Joint stiffness, Joint swelling, Joint Tenderness Skin: Denies: Rash, Wounds Neurological: Denies: Difficulty swallowing, Focal weakness, Numbness, Tingling Psychiatric: Denies: Anxiety, Depression, Homicidal Ideations, Suicidal Ideations Hematologic/ Lymphatic: Denies: Easy Bruising, Easy Bleeding VTE Information - Inpt Only VTE Present on Admission: No VTE Pharm Prophylaxis ordered?: Yes Patient Problems: Active and Suspected Problems Chest pain (Acute) - Physical Exam General: Alert, Oriented x3, Cooperative, No apparent distress HEENT: Atraumatic, PERRLA, EOMI, Normocephalic Oral: Moist Mucosa Neck: Supple Lungs: Clear to auscultation, Normal air movement Cardiovascular: Regular rate, Regular Rhythm, Normal S1, Normal S2, No murmurs Abdomen: Bowel Sounds Present, Soft, Non Tender, Non-Distended, No Hepato-splenomegaly, Obese Extremities: No edema Skin: No rashes, - - Multiple skin tattoes Musculoskeletal: No Tenderness to Palpation of Joints or Extremities Lymphatic: No Cervical, Supraclavicular, or Inguinal Adenopathy Neurological: Cranial nerves II-XII grossly intact Psych/Mental Status: Normal Affect, Appropriate Vital Signs Temp Pulse Resp BP Pulse Ox 97.9 F 64 20 H 103/77 97 10/10/17 09:29 10/10/17 11:07 10/10/17 11:07 10/10/17 11:07 10/10/17 11:07 Oxygen Delivery Method Room Air Weight: 81.8 kg Body Mass Index (BMI) 26.6 Laboratory Tests Past 24 Hrs WBC 8.0 RBC 5.30 Hgb 16.2 Hct 47.1 MCV 88.9 MCH 30.6 MCHC 34.4 RDW 13.0 Assessment/Plan Active and Suspected Problems Chest pain (Acute) 46 year old M with PMHx of CAD s/p stents, nicotine use disorder, follows with Dr. Martínez in the outpatient, comes in with chest pain, which is substernal, radiates to left arm, associated with tingling/the left going for 1 week. 1. Chest pain, typical, history of CAD status post stents, smoker, troponin x1 neg, no new ekg changes. Plan: Admit to PCU, monitor on telemetry, trend troponins, aspirin, nitro prn, cardiology consult, 2d-echo, stress test 2. Chronic nicotine use disorder, osteoporosis, would put on nicotine gum and patch off in the hospital 3. Anxiety/depression, on Zoloft 4. DVT PPx - Lovenox SC Code Visit OBSV E AND M: [id number] Initial observation care L3 10/10/17 1225 <Electronically signed by Rupal Kramer MD> Date Rupal Kramer MD Cosigner Signature: Date (if applicable) CC: Rupal Kramer MD; Perry Dunn MD Signed CBC W/DIFF, AUTOMATED Collected: 10/10/2017 Status: F Source: [place] 9:57 [facility] REPOSITORY TYPE CODE TESTS RESULT OUT OF RANGE REFERENCE UNITS LAB L100.1000 4.4-11.0 K/mm3 Normal WBC 8.0 LAB L100.1200 4.6-6.2 M/mm3 Normal RBC 5.30 LAB L100.1300 13.0-16.5 g/dl Normal HGB 16.2 LAB L100.1400 40-54 % Normal HCT 47.1 LAB L100.1500 80-94 fL Normal MCV 88.9 LAB L100.1600 27.0-32.0 pg Normal MCH 30.6 LAB L100.1700 32-36 g/gl Normal MCHC 34.4 LAB L100.1810 11.6-14.6 % Normal RDW CV 13.0 LAB L100.1820 35.1-43.9 fl Normal RDW SD 41.9 LAB L100.1900 150-450 K/mm3 Normal PLT 245 LAB L100.2000 6.2-12.0 fl Normal MPV 9.0 LAB L100.2100 47-70 % Normal NEUT% 48.6 LAB L100.2200 19-41 % Normal LY% 37.4 LAB L100.2300 0-10 % High MONO% 11.2 LAB L100.2400 0-5 % Normal EO% 2.1 LAB L100.2500 0-1 % Normal BASO% 0.4 LAB L100.2550 0.0-0.9 % Normal IM GRAN % 0.300 Result Comment: IG% - Immature Granulocytes (promyelocytes, myelocytes and metamyelocytes) > 1% indicates that a LEFT SHIFT is Present. LAB L100.2620 2.0-7.7 X10 3/uL Normal Absolute Neut 3.9 LAB L100.2720 0.83-4.51 X10 3/ul Normal Absolute Lymph 2.97 Performed By: #### L100.0100 #### [facility] [address] [place], [address] BASIC METABOLIC Collected: 10/10/2017 Status: F Source: [place] PROFILE (BMP) 9:57 AM [facility] Order Comment: 'TROP' Serial specimen #1, #2, #3, or #4: 1 TYPE CODE TESTS RESULT OUT OF RANGE REFERENCE UNITS LAB L501.0100 74-106 mg/dL Normal GLU 92 Result Comment: Please note revised GLUCOSE reference range effective 2017. LAB L501.1000 7-18 mg/dL Normal BUN 13 LAB L501.1100 0.70-1.30 mg/dL Normal CREAT,SERUM 0.87 Result Comment: The validity of the calculated GFR AND GFRAA in patients over 70 years has not been determined. Clinical correlation is essential. LAB L501.1110 >60 mL/min Normal EST GFR 100 Result Comment: Non- GFR Calc LAB L501.1115 >60 mL/min Normal EST GFR - AA 121 Result Comment: GFR Calc LAB L501.1255 ml/min Normal Estimated CRCL 104.97 LAB L501.1300 10-20 RATIO BUN/CRE Normal 14.9 LAB L501.2200 8.5-10 mg/dL .1 CA Normal 8.6 LAB L501.5300 136-14 mmol/L 5 NA Normal 141 LAB L501.5600 3.5-5. mmol/L 1 K Normal 3.5 LAB L501.5900 98-107 mmol/L CL Normal 107 LAB L501.6100 21.0-3 mmol/L 2.0 CO2 Normal 27.0 LAB L501.6200 5-15 GAP Normal 7 Performed By: #### L500.2500, L501.4010 #### [facility] [address] [place], [address] TROPONIN-I Collected: 10/10/2017 Status: F Source: [place] 9:57 AM [facility] Order Comment: 'TROP' Serial specimen #1, #2, #3, or #4: 1 TYPE CODE TESTS RESULT OUT OF RANGE REFERENCE UNITS LAB L501.4010 <0.06 ng/mL Normal < 0.02 TROPONIN-I Result Comment: TROPONIN-I EXPECTED VALUES <0.05 NEGATIVE 0.06 - 0.59 AT RISK OF FL > OR = 0.60 SUGGEST FL Performed By: #### L500.2500, L501.4010 #### [facility] [address] [place], [address] CHEST 1 VIEW Observed: 10/10/2017 Status: F Source: [place] (PORTABLE) 9:43 AM [facility] Imaging Services [address] [place] [address] Chest 1 View (Portable) MR#: [id number] Acct: [id number] Name: KATHIE FULLER Rep #: [id number] : 1970 M 46 From: Jose Nolen MD PCP: Perry Dunn MD Status: REG ER Study: Chest 1 View (Portable) Date of Exam: 10/10/17 Exam# [id number] Ordering Dr: Shazia Moran MD STUDY: X-RAY CHEST REASON FOR EXAM: Male, 46 years old. Chest pain. TECHNIQUE: Single AP portable view of the chest. COMPARISON: Comparison is made with prior study dated October 03, 2017. FINDINGS: EKG electrodes are seen. The lungs are clear and expanded. There is no demonstrated pleural abnormality. Normal size heart. Normal mediastinum and satish. Normal visualized pulmonary arteries. Normal visualized aortic arch and descending thoracic aorta. Normal visualized thoracic spine. Normal visualized ribs, clavicles, and shoulders. There is no demonstrated abnormality of the visualized soft tissue structures of the upper abdomen. RAD/Chest 1 View (Portable) IMPRESSION: Normal x-ray examination of the chest. Electronically Signed: Jose Nolen MD at 10:18 EST Tel [phone], Service support , CC: Shazia Moran MD; Perry Dunn MD Food Service Worker Hospital: Signed 12 LEAD ELECTROCARDIOGRAM Observed: 10/09/2017 Status: F Source: [place] 2:01 PM [facility] Cardiovascular Services [address] [place] [address] 12 Lead EKG 10/03/17 2310 MR#: [id number] Acct: [id number] Name: KATHIE FULLER Rep #: [id number] : 1970 46 From: Toño Berg MD Attending Dr: Status: DEP ER Ordering Dr: Isidro Ruiz MD Date: 10/03/17 Location: ED Sex: M C Admitted: Test Reason : CP REPEAT Blood Pressure : / mmHG Vent. Rate : 079 BPM Atrial Rate : 079 BPM P-R Int : 180 ms QRS Dur : 086 ms QT Int : 390 ms P-R-T Axes : 027 -30 -15 degrees QTc Int : 447 ms Normal sinus rhythm Left axis deviation Inferior infarct , age undetermined Abnormal ECG Confirmed by ESTRELLITA VELEZ, TOÑO ([id number]), commercial production editor VICTORIA ZHU ([id number]) on 10/09/2017 2:01:07 PM Referred By: TRUNG Confirmed By:TOÑO BERG MD 10/09/17 1401 Date Toño Berg MD CC: Isidro Ruiz MD; Perry Dunn MD Signed 12 LEAD ELECTROCARDIOGRAM Observed: 10/09/2017 Status: F Source: [place] 2:01 PM [facility] Cardiovascular Services [address] [place] [address] 12 Lead EKG 10/03/17 2101 MR#: [id number] Acct: [id number] Name: KATHIE FULLER Rep #: [id number] : 1970 46 From: Toño Berg MD Attending Dr: Status: DEP ER Ordering Dr: Isidro Ruiz MD Date: 10/03/17 Location: ED Sex: M C Admitted: Test Reason : CP Blood Pressure : / mmHG Vent. Rate : 100 BPM Atrial Rate : 100 BPM P-R Int : 174 ms QRS Dur : 086 ms QT Int : 366 ms P-R-T Axes : 034 -19 005 degrees QTc Int : 472 ms Normal sinus rhythm Inferior infarct , age undetermined Abnormal ECG Confirmed by TOÑO BERG MD ([id number]), commercial production editor VICTORIA ZHU ([id number]) on 10/09/2017 2:01:34 PM Referred By: TRUNG Confirmed By:TOÑO BERG MD 10/09/17 1401 Date Toño Berg MD CC: Isidro Ruiz MD; Perry Dunn MD Signed EMERGENCY DEPARTMENT Observed: 10/05/2017 Status: F Source: [place] SUMMARY 2:50 PM [facility] Medical Records Department [address] [place] [address] Emergency Department Summary 10/04/17 0047 MR#: [id number] Acct: [id number] Name: KATHIE FULLER Rep #: [id number] : 1970 46 From: Isidro Ruiz MD PCP: Perry Dunn MD Status: DEP ER - ER Visit Summary Date of Service: 10/04/17 Chief Complaint: Chest pain History of Present Illness: The patient is a [address] Dunn and Dr. Martínez. He reports that he has chest pain that began at 8:00 at rest. It has been a constant dull pain. Is 7 out of 10 at worst and 3-10 currently. It is worsened by nothing including exertion, movement, or breathing. It is relieved by nothing. States that radiates into his left shoulder and down his arm. States that it has made him short of breath and diaphoretic. Reports that he has had this similarly when he had anxiety or when he required stents. Patient has 4 stents that were placed in 2013. Physical Examination: Vitals: Stable. Afebrile. General: Well-nourished and well-developed. Head: Normocephalic atraumatic. Neck: Supple, no lymphadenopathy. No JVD. Nontender. Cardiovascular: Regular rate and rhythm. No murmurs. Respiratory: No respiratory distress. Clear to auscultation bilaterally. Abdominal: Soft, nontender, nondistended, normal bowel sounds. No guarding, rebound, or peritoneal signs. Back: Nontender. Extremities: Nontender, no edema. Skin: Normal color, no rash. Neurologic: Alert and oriented 3. Cranial nerves II through XII are intact. Normal strength and sensation. Psych: Normal affect. Test Results: EKG is sinus at [address] changes. Is unchanged from 2016. Repeat EKG is unchanged. Troponin is negative. Repeat troponin is negative. Chem-7 is marked for potassium 3.1 glucose 115. Chem-7 is more for segment neutrophils of 42, lymphocytes of 44, monocytes of 11. Chest x-ray is normal. Emergency Department Course and Treatment: Patient was treated with aspirin p.o. He was given a sublingual nitroglycerin which completely resolved his pain. He was treated with potassium p.o. Treatment Plan: I had a prolonged discussion with the patient at this time that I cannot rule out that this is his heart. He is refusing to be admitted to the hospital. He will be discharged with instructions to follow-up with Dr. Martínez as soon as possible. Return to the emergency department if he has worsening pain, shortness of breath, or even just changes his mind. Disposition: Left AGAINST MEDICAL ADVICE Impression: 1. Chest pain. 2. Left AMA. 3. Hypokalemia. 4. MANOHAR score of 3. This note was generated with [employer] dictation software. It may contain incorrect words, spelling, and punctuation that were not noted in review of the chart prior to signing ED Disposition - Plan for ED Patient: Chief Complaint: Chest Pain Instructions: ED Chest Pain Atypical Unkn Cause Referrals: Perry Dunn MD [Primary Care Provider] - Srinath Hernandez MD [STAFF PHYSICIAN] - As soon as possible What to do if you have Problems For any increased pain, shortness of breath, bleeding, nausea or vomiting, chest pain, or any unexpected problems, contact your Primary Care Provider. Call [facility] ([phone]) or report to the closest Emergency Room. Call 911 if necessary. 10/05/17 1450 <Electronically signed by Isidro Ruiz MD> Date Isidro Ruiz MD Cosigner Signature (If Indicated): Date CC: Perry Dunn MD TROPONIN-I Collected: 10/04/2017 Status: F Source: [place] 12:08 AM [facility] Order Comment: Comments: Should be drawn 3H after initial Troponin obtained 'TROP' Serial specimen #1, #2, #3, or #4: 2 TYPE CODE TESTS RESULT OUT OF RANGE REFERENCE UNITS LAB L501.4010 <0.06 ng/mL Normal < 0.02 TROPONIN-I Result Comment: TROPONIN-I EXPECTED VALUES <0.05 NEGATIVE 0.06 - 0.59 AT RISK OF FL > OR = 0.60 SUGGEST FL Performed By: #### L501.4010 #### [facility] [address] [place], [address] CHEST 1 VIEW Observed: 10/03/2017 Status: F Source: [place] (PORTABLE) 9:32 PM [facility] Imaging Services [address] [place] [address] Chest 1 View (Portable) MR#: [id number] Acct: [id number] Name: KATHIE FULLER Rep #: [id number] : 1970 M 46 From: Bigg Osuna MD PCP: Perry Dunn MD Status: PRE ER Study: Chest 1 View (Portable) Date of Exam: 10/03/17 Exam# [id number] Ordering Dr: Isidro Ruiz MD STUDY: X-RAY CHEST REASON FOR EXAM: Male, 46 years old. Pain TECHNIQUE: Single AP portable view of the chest. COMPARISON: None. FINDINGS: The lungs are clear and expanded. There is no demonstrated pleural abnormality. Normal size heart. Normal mediastinum and satish. Normal visualized pulmonary arteries. Normal visualized aortic arch and descending thoracic aorta. Normal visualized thoracic spine. Normal visualized ribs, clavicles, and shoulders. There is no demonstrated abnormality of the visualized soft tissue structures of the upper abdomen. RAD/Chest 1 View (Portable) IMPRESSION: Normal x-ray examination of the chest. 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 Hospital: Signed CBC W/DIFF, AUTOMATED Collected: 10/03/2017 Status: F Source: [place] 9:07 PM [facility] TYPE CODE TESTS RESULT OUT OF RANGE REFERENCE UNITS LAB L100.1000 4.4-11.0 K/mm3 Normal WBC 9.2 LAB L100.1200 4.6-6.2 M/mm3 Normal RBC 5.37 LAB L100.1300 13.0-16.5 g/dl Normal HGB 16.3 LAB L100.1400 40-54 % Normal HCT 47.8 LAB L100.1500 80-94 fL Normal MCV 89.0 LAB L100.1600 27.0-32.0 pg Normal MCH 30.4 LAB L100.1700 32-36 g/gl Normal MCHC 34.1 LAB L100.1810 11.6-14.6 % Normal RDW CV 13.1 LAB L100.1820 35.1-43.9 fl Normal RDW SD 42.3 LAB L100.1900 150-450 K/mm3 Normal PLT 257 LAB L100.2000 6.2-12.0 fl Normal MPV 9.2 LAB L100.2100 47-70 % Low NEUT% 42.3 LAB L100.2200 19-41 % High LY% 44.0 LAB L100.2300 0-10 % High MONO% 10.6 LAB L100.2400 0-5 % Normal EO% 2.3 LAB L100.2500 0-1 % Normal BASO% 0.4 LAB L100.2550 0.0-0.9 % Normal IM GRAN % 0.400 Result Comment: IG% - Immature Granulocytes (promyelocytes, myelocytes and metamyelocytes) > 1% indicates that a LEFT SHIFT is Present. LAB L100.2620 2.0-7.7 X10 3/uL Normal Absolute Neut 3.9 LAB L100.2720 0.83-4.51 X10 3/ul Normal Absolute Lymph 4.04 Performed By: #### L100.0100 #### [facility] [address] [place], [address] BASIC METABOLIC Collected: 10/03/2017 Status: F Source: [place] PROFILE (BMP) 9:07 PM [facility] Order Comment: 'TROP' Serial specimen #1, #2, #3, or #4: 1 TYPE CODE TESTS RESULT OUT OF RANGE REFERENCE UNITS LAB L501.0100 74-106 mg/dL High GLU 115 Result Comment: Fasting Glucose result from 100 to 125 mg/dL suggests IMPAIRED HOMEOSTASIS per A.D.A. criteria. Please note revised GLUCOSE reference range effective 2017. LAB L501.1000 7-18 mg/dL Normal BUN 12 LAB L501.1100 0.70-1.30 mg/dL Normal CREAT,SERUM 0.96 Result Comment: The validity of the calculated GFR AND GFRAA in patients over 70 years has not been determined. Clinical correlation is essential. LAB L501.1110 >60 mL/min Normal EST GFR 89 Result Comment: Non- GFR Calc LAB L501.1115 >60 mL/min Normal EST GFR - AA 107 Result Comment: GFR Calc LAB L501.1255 ml/min Normal Estimated CRCL 95.13 LAB L501.1300 10-20 RATIO Normal BUN/CRE 12.5 LAB L501.2200 8.5-10 mg/dL Normal .1 CA 9.1 LAB L501.5300 136-14 mmol/L Normal 5 NA 141 LAB L501.5600 3.5-5. mmol/L Low 1 K 3.1 LAB L501.5900 98-107 mmol/L Normal CL 104 LAB L501.6100 21.0-3 mmol/L Normal 2.0 CO2 28.0 LAB L501.6200 5-15 Normal GAP 9 Performed By: #### L500.2500, L501.4010 #### [facility] [address] [place], [address] TROPONIN-I Collected: 10/03/2017 Status: F Source: [place] 9:07 PM [facility] Order Comment: 'TROP' Serial specimen #1, #2, #3, or #4: 1 TYPE CODE TESTS RESULT OUT OF RANGE REFERENCE UNITS LAB L501.4010 <0.06 ng/mL Normal < 0.02 TROPONIN-I Result Comment: TROPONIN-I EXPECTED VALUES <0.05 NEGATIVE 0.06 - 0.59 AT RISK OF FL > OR = 0.60 SUGGEST FL Performed By: #### L500.2500, L501.4010 #### [facility] [address] [place], [address] ALLERGIES ALLERGIES DATE TYPE / NAME / CODE REACTION SEVERITY SOURCE CODE Drug hydrochlorothiazide/F006 Pt got very SV [place] 8 Allergy/4 684190(RXNORM) dizzy, Community [id number]( [facility] SNOMED Repository CT) DRUG HYDROCHLOROTHIAZIDE OTHER: SEE C [place] 1 INGREDI/4 [facility] [id number]( [place] SNOMED Repository CT) ENCOUNTERS ENCOUNTERS ADMIT/DISCHARGE ACCOUNT ADMITTING ENCOUNTER LOCATION SOURCE NUMBER CLASS 07/02/2018/07/02/20 [id number] Ambulatory [address] ing:SDCRoom: Repository AC02 06/28/2018 [id number] Ambulatory BMSBuilding:[facility] Repository 06/24/2018/06/24/20 [id number] Ambulatory BMSBuilding:[place] [address] [place] Repository 06/18/2018/06/19/20 [id number] Ambulatory [address] Repository 06/06/2018/06/06/20 [id number] Ambulatory [address] ing:OT Repository 05/02/2018 [id number] Ambulatory [facility] ing:CT Repository 04/12/2018/04/15/20 [id number] Ambulatory [address] Repository 03/04/2018/03/04/20 [id number] Emergency [address] ing:ED Repository 02/22/2018/02/23/20 [id number] Ambulatory [address] Repository 02/22/2018/02/23/20 [id number] Ambulatory [address] Repository 02/08/2018/02/12/20 [id number] Ambulatory [address] Repository 11/16/2017/11/17/19 [id number] Ambulatory BMSBuilding:[place] [address] [facility] Repository 11/15/2017 [id number] Ambulatory BMSBuilding:[place] [facility] Repository 10/10/2017/10/12/19 [id number] [place] Ambulatory [address] ing:PCURoom: Repository [id number]: 1 10/10/2017 [id number] [place] Ambulatory BMSBuilding:[place] [place] [facility] 10/10/2017 [id number] [place] Ambulatory BMSBuilding:[place] MS.CF.[facility] Repository 10/10/2017 [id number] [place] Ambulatory BMSBuilding:[place] MS.[facility] Repository 10/10/2017 [id number] [place] Ambulatory BMSBuilding:[facility] [place] [facility] Repository 10/03/2017/10/05/19 [id number] [place], Emergency [address] ing:EDRoom: Repository [id number] PAYERS PAYERS ENCOUNTER GUARANTOR PAYER SUBSCRIBER SOURCE 07/02/2018 KATHIE Kimberly Primary Insurance:[facility] KATHIE Kimberly FULLER1211 COMMUNITY PLANPolicy WAGNERDOB: Community RAJNI STAPT Number: [id number], [place] [id number] Repository [address]Fhq: (330) Date:6259-07-71NJ [phone] () [address] [place] [address] 10116TR: 07/02/2018 Secondary NOT GIVENUNK [place] Insurance:SELF PAY [facility] Number: Effective Repository Date:2018-06-11 06/28/2018 KATHIE T Primary Insurance:[facility] KATHIE T [place] [id number] [facility] PLANPoly WAGNERDOB: Community RAJNI STAPT Number: [id number], [place] [id number] Repository 750[address]Rxx: (330) Date:7952-39-63NH [phone] () [address] [place] [address] 71444UN: 06/28/2018 Secondary NOT GIVENUNK [place] Insurance:SELF PAY [facility] Number: Effective Repository Date:2018-06-28 06/24/2018 KATHIE T Primary Insurance:[facility] KATHIE T [place] [id number] [facility] WAGNERDOB: Community RAJNI STAPT Number: [id number], [place] [id number] Repository 80802Uaa: (330) Date:6488-48-21RV [phone] () [address] [place] [address] 94453QN: 06/24/2018 Secondary NOT GIVENUNK [place] Insurance:SELF PAY [facility] Number: Effective Repository Date:2018-06-24 06/06/2018 KATHIE T FULLER Primary Insurance:[facility] KATHIE T FULLER [place] [id number] RAJNI [facility] PLANJames [facility] JRDOB: [facility], Number: [id number] [address]11Jtd: [id number] Repository Date:6614-59-21SS [address] () [address] [place] [address] 33481IK: 06/06/2018 Secondary NOT GIVENUNK [place] Insurance:SELF PAY [facility] Number: Effective Repository Date:2018-05-31 05/02/2018 KATHIE T Primary Insurance:[facility] KATHIE T [place] [id number] COMMUNITY PLANPolicy WAGNERDOB: Community RAJNI STAPT Number: [id number], [place] [id number] Repository 22884Tis: (330) Date:0396-09-07SJ [phone] () [address] [place] [address] 24694ZD: 05/02/2018 Secondary NOT GIVENUNK [place] Insurance:SELF PAY [facility] Number: Effective Repository Date:2018-04-26 03/04/2018 KATHIE T Primary Insurance:[facility] KATHIE T [place] [id number] COMMUNITY PLANPolicy WAGNERDOB: Community RAJNI STAPT Number: [id number], [place] [id number] Repository 22[address]Nvx: (330) Date:6349-53-95RU [phone] () [address] [place] [address] 76868BG: 03/04/2018 Secondary NOT GIVENUNK [place] Insurance:SELF PAY [facility] Number: Effective Repository Date:2018-03-04 11/16/2017 KATHIE T Primary Insurance:[facility] KATHIE Kimberly FULLER1211 [facility] PLANPolicy WAGNERDOB: Community RAJNI STAPT Number: [id number], [place] [id number] Repository 58383Hgt: (330) Date:2298-03-46YN [phone] () [address] [place] [address] 96964QB: 11/16/2017 Secondary NOT GIVENUNK [place] Insurance:SELF PAY [facility] Number: Effective Repository Date:2017-10-24 11/15/2017 KATHIE T Primary Insurance:[facility] KATHIE T [place] [id number] [facility] WAGNERDOB: Community RAJNI STAPT Number: [id number], [place] [id number] Repository 67251Hzg: (330) Date:6654-42-18AL [phone] () [address] [place] [address] 44002HV: 11/15/2017 Secondary NOT GIVENUNK [place] Insurance:SELF PAY [facility] Number: Effective Repository Date:2017-11-15 10/10/2017 KATHIE T Primary Insurance:[facility] KATHIE T [place] [id number] COMMUNITY PLANPolicy WAGNERDOB: Community RAJNI STAPT Number: [id number], [place] [id number] Repository 35843Ste: (330) Date:2191-91-68VF [phone] () [address] [place] [address] 29099BD: 10/10/2017 Secondary NOT GIVENUNK [place] Insurance:SELF PAY [facility] Number: Effective Repository Date:2017-10-10 10/10/2017 KATHIE T Primary Insurance:[facility] KATHIE T [place] [id number] COMMUNITY PLANPolicy WAGNERDOB: Community RAJNI STAPT Number: [id number], [place] [id number] Repository [address]Gaf: (330) Date:4722-12-65PU [phone] () [address] [place] [address] 75701FO: 10/10/2017 Secondary NOT GIVENUNK [place] Insurance:SELF PAY [facility] Number: Effective Repository Date:2017-10-10 10/10/2017 KATHIE T Primary Insurance:[facility] KATHIE T [place] [id number] COMMUNITY PLANPolicy WAGNERDOB: Community RAJNI STAPT Number: [id number], [place] [id number] Repository 439[address]Lmm: (330) Date:1960-73-97RL [phone] () [address] [place] [address] 57046UQ: 10/10/2017 Secondary NOT GIVENUNK [place] Insurance:SELF PAY [facility] Number: Effective Repository Date:2017-10-10 10/10/2017 KATHIE T Primary Insurance:[facility] KATHIE T [place] [id number] COMMUNITY PLANPolicy WAGNERDOB: Community RAJNI STAPT Number: [id number], [place] [id number] Repository 00985Tfd: (330) Date:8777-75-23XP [phone] () [address] [place] [address] 35597OQ: 10/10/2017 Secondary NOT GIVENUNK [place] Insurance:SELF PAY [facility] Number: Effective Repository Date:2017-10-10 10/10/2017 KATHIE T Primary Insurance:[facility] KATHIE T [place] [id number] [facility] PLANPolicy WAGNERDOB: Community RAJNI STAPT Number: [id number], [place] [id number] Repository 188[address]Wpf: (330) Date:6086-16-36YU [phone] () [address] [place] [address] 66234XP: 10/10/2017 Secondary NOT GIVENUNK [place] Insurance:SELF PAY [facility] Number: Effective Repository Date:2017-10-10 10/03/2017 KATHIE T Primary Insurance:[facility] KATHIE T [place] [id number] [facility] PLANPoly WAGNERDOB: Community RAJNI STAPT Number: [id number], [place] [id number] Repository 16[address]Usc: (330) Date:2824-46-58SO [phone] () [address] [place] [address] 54534ZJ: 10/03/2017 Secondary NOT GIVENUNK [place] Insurance:SELF PAY [facility] Number: Effective Repository Date:2017-10-03
== END 2018-07-02 14:13 | disposition home or self-care (01) ==
LOC: SDC 08:45 → AC 08:46
PROVIDERS: Family Provider Family Medicine; PCP Family Medicine; Referring Provider Otolaryngology; Visit Provider Otolaryngology
PROC: (CPT 30140; principal; 2018-07-02 10:15)
DX: J34.2 Deviated nasal septum (principal); J34.3 Hypertrophy of nasal turbinates; M95.0 Acquired deformity of nose; R09.81 Nasal congestion; E78.00 Pure hypercholesterolemia, unspecified; Z86.19 Personal history of other infectious and parasitic diseases; Z79.82 Long term (current) use of aspirin; Z79.899 Other long term (current) drug therapy; I25.2 Old myocardial infarction; I25.10 Atherosclerotic heart disease of native coronary artery without angina pectoris; Z95.5 Presence of coronary angioplasty implant and graft
CPT/HCPCS: 00160; 30140; 30420; 36415; 80048; 85027; 93005; J7120; J2405

== ENCOUNTER → 2019-04-23 12:43 | Outpatient (CLI) | payer MEDICAID, SELFPAY ==
[2019-01-23 11:00] VITALS: BMI 26.9
--- NOTE | 2019-04-23 12:44 | ECHOD_ITS ---
Reason For Study: CHF Procedure This was a 2D Doppler, Color Flow transthoracic echocardiogram. Exam performed in department. Left Ventricle The estimated ejection fraction is 45 %. Stage 1 diastolic dysfunction. Posterior-Basal: Mildly hypokinetic. Infero-Basal: Mildly hypokinetic. Right Ventricle Normal size and thickness. Normal systolic function. Atria Normal left atrium. Normal right atrium. Normal atrial septum. Mitral Valve The mitral valve is structurally normal. No prolapse or stenosis seen. Trivial posteriorly directed mitral valve insufficiency. Tricuspid Valve Normal tricuspid valve. Unable to estimate RV systolic pressure due to insufficient tricuspid regurgitant envelope. Aortic Valve Normal aortic valve. Trisinus/trileaflet aortic valve. Pulmonic Valve Normal pulmonic valve. Great Vessels Normal aortic root. Normal arch. Normal inferior vena cava. Inferior vena cava collapse with sniff. Pericardium/Pleural No pericardial effusion. MMode/2D Measurements & Calculations LVIDd: 5.2 cm IVSd: 1.4 cm Ao root diam: 3.5 cm LVIDs: 4.1 cm LVPWd: 0.81 cm RVDd: 3.3 cm FS: 20.8 % LAV(MOD-bp): 49.8 ml LVAd ap4: 33.2 cm2 SV(MOD-sp4): 48.8 ml LAV(MOD-bp) Indexed: 25.5 ml/m2 EDV(MOD-sp4): 110.1 ml LAV(MOD-sp2): 48.1 ml EDV(sp4-el): 110.8 ml LAV(MOD-sp4): 49.0 ml LVAs ap4: 22.1 cm2 ESV(MOD-sp4): 61.3 ml ESV(sp4-el): 59.6 ml EF(MOD-sp4): 44.3 % EF(sp4-el): 46.2 % SV(sp4-el): 51.2 ml LA A4 area: 17.7 cm2 LA dimension(2D): 3.3 cm RA A4 area: 13.8 cm2 Doppler Measurements & Calculations MV E max soy: 55.2 cm/sec Lat Peak E' Soy: 13.7 cm/sec Med Peak E' Soy: 5.8 cm/sec MV A max soy: 61.2 cm/sec E/E' lat: 4.0 E/E' med: 9.6 MV E/A: 0.90 Ao V2 max: 120.7 cm/sec LV V1 max: 103.0 cm/sec PA V2 max: 100.0 cm/sec Ao max P.8 mmHg LV V1 max P.2 mmHg Interpretation Summary The estimated ejection fraction is 45 %. Stage 1 diastolic dysfunction. Posterior-Basal: Mildly hypokinetic Infero-Basal: Mildly hypokinetic Trivial posteriorly directed mitral valve insufficiency. Unable to estimate RV systolic pressure due to insufficient tricuspid regurgitant envelope. Compared to echo report dated 10/10/2017, no appreciable changes noted. Ordering Physician: Papi Potter Referring Physician: Nik Dunn Performed By: Nevin Elise RDCS
== END ==
PROVIDERS: Family Provider Family Medicine; PCP Family Medicine; Referring Provider Internal Medicine Cardiovascular Disease; Visit Provider Internal Medicine Cardiovascular Disease
DX: E78.5 Hyperlipidemia, unspecified (principal); I10 Essential (primary) hypertension; I25.10 Atherosclerotic heart disease of native coronary artery without angina pectoris; I25.2 Old myocardial infarction; Z95.5 Presence of coronary angioplasty implant and graft
CPT/HCPCS: 93306

== ENCOUNTER 2019-09-03 12:08 | Emergency (ER) | payer MEDICAID, SELFPAY ==
[2019-01-23 11:00] VITALS: BMI 26.9
[2019-09-03 12:09] VITALS: BP 135/88; PULSE 74; RESP 16; TEMP 37.4; O2SAT 99; BMI 27.0
--- NOTE | 2019-09-03 12:24 | ED.VISSUMM ---
- ER Visit Summary Date of Service: 09/03/19 Chief Complaint: Sinus pressure History of Present Illness: The patient is a 48 M who presents with sinus pressure that is been getting worse over the past 12 days. Patient states that is gradually gotten worse. Patient states the pain is worse over the maxillary sinuses and between his eyes. Patient states headache improves when he goes outside in the cold air. Patient states nothing makes it worse. Patient denies any fevers or chills. Patient admits to some rhinorrhea. Patient admits to a cough but denies any sputum production. Patient denies any chest pain or shortness of breath. Physical Examination: Vital signs are stable. Patient is afebrile here with a temperature of 99.4. Patient is in no acute distress. Pupils are equal, round, and reactive to light bilaterally. Extraocular muscles are intact. Tympanic membranes are clear bilaterally. Oral mucosa is pink and moist. Oropharynx is clear. Nasal mucosa is congested. There is tenderness over the maxillary sinuses bilaterally. There is no tenderness over the frontal sinuses. Neck is supple. Trachea is midline. There is no JVD. Heart was regular rate and rhythm. Lungs are clear and equal bilaterally. Abdomen is soft and nontender. Cranial nerves II through XII are intact. There are no focal motor or sensory deficits. Emergency Department Course and Treatment: Patient was given a prescription for Zithromax since his symptoms have been persistent for more than 10 days. Patient was also given a prescription for Flonase. Smoking cessation was discussed. Patient was instructed to follow-up with his primary care physician in 5 to 7 days. Patient understood and was agreeable with the plan. All questions were answered. Disposition: Discharge home Impression: Acute maxillary sinusitis This note was generated with [employer]ummel[employer] dictation software. It may contain incorrect words, spelling, and punctuation that were not noted in review of the chart prior to signing ED Disposition - Plan for ED Patient: Disposition: Home or Assisted Living Diagnosis: Acute maxillary sinusitis Instructions: SINUSITIS, Abx Tx Prescriptions: Azithromycin [Zithromax Z-Rene] 250 mg PO UD #1 box Prescription Printed Referrals: Perry Dunn MD [Primary Care Provider] - 5-7 Days
[2019-09-03 12:47] VITALS: RESP 17
== END 2019-09-03 12:48 | disposition home or self-care (01) ==
LOC: ED 12:36
PROVIDERS: Emergency Provider Emergency Medicine; PCP Family Medicine
DX: J01.00 Acute maxillary sinusitis, unspecified (principal); F17.200 Nicotine dependence, unspecified, uncomplicated
CPT/HCPCS: 99282

== ENCOUNTER 2019-11-05 09:18 | Emergency (ER) | payer MEDICAID, SELFPAY ==
[2019-11-05 09:19] VITALS: BP 155/100; PULSE 79; RESP 18; TEMP 37; O2SAT 100; BMI 26.5
[2019-11-05 09:21] VITALS: BP 155/100; PULSE 79; RESP 17; TEMP 37; O2SAT 100
--- NOTE | 2019-11-05 09:37 | EKG12_ITS ---
Test Reason : SOB, PAIN INL ARM Blood Pressure : / mmHG Vent. Rate : 080 BPM Atrial Rate : 080 BPM P-R Int : 190 ms QRS Dur : 088 ms QT Int : 390 ms P-R-T Axes : 031 -11 003 degrees QTc Int : 449 ms Normal sinus rhythm Inferior infarct , age undetermined Abnormal ECG Confirmed by ADEOLA VELEZ, EMETERIO ([id number]), editor greeting card VICTORIA ZHU ([id number]) on 11/11/2019 2:03:03 PM Referred By: TIM Confirmed By:KATARZYNA MIR MD
--- NOTE | 2019-11-05 09:38 | ED.VIS.GEN ---
History of Present Illness Chief Complaint: Shortness of Breath Informant: Patient Narrative: Patient presents the emergency department for the evaluation of chest tightness. Patient states he has history of coronary artery disease had an MS with angioplasty and stenting in 2012. He has been intermittently compliant when he has his medications but currently is not on them. He is a smoker and notes a smoker's cough and that is unchanged. He states that over the weekend he had several episodes which he figured were his anxiety where he would get chest tightness some left arm discomfort and some tingling in the arm. He states that they seem to be getting longer in duration. When he went to bed last night he felt fine. When he woke today at 8 he had that sensation and it has gotten better but still present. He does not remember quite what his symptoms were when he had his MS but he states he does remember a burning sensation in his left arm. Past Medical History - Allergies and Home Meds Allergies/Adverse Reactions: Allergies hydrochlorothiazide Adverse Reaction (Severe, Verified 11/05/19 09:23) Pt got very dizzy, dehydrated Primary Care Physician: Perry Dunn MD [Primary Care Provider] - Surgical History: no surgical history, - - low back surgery for spinal canal stenosis Smoking Status: Current every day smoker - Family History Maternal Family History: Reports: No pertinent history Paternal Family History: Reports: No pertinent history Review of Systems General: Denies: Chills, Fever, Sweats Eyes: Denies: Visual changes - bilaterally, Diplopia ENT: Denies: Rhinorrhea, Sore throat Cardiovascular: Reports: Chest pain. Denies: Palpitations Respiratory: Reports: Dyspnea. Denies: Cough, Dyspnea on exertion Gastrointestinal: Denies: Abdominal pain, Nausea, Vomiting, Diarrhea, Melena, Hematochezia Genitourinary: Denies: Dysuria, Hematuria, Frequency Musculoskeletal: Denies: Back pain, Extremity Pain Skin: Denies: Rash, Wounds Neurological: Reports: Parasthesia. Denies: Headache, Weakness, Numbness Psych: Reports: Anxiety Physical Exam Vital Signs/Narrative: Vital Signs Temp Pulse Resp BP Pulse Ox 11/05/19 09:21 98.6 F 79 17 155/100 H 100 11/05/19 09:19 98.6 F 79 18 155/100 H 100 Inital Vital Signs reviewed: Yes General: Well nourished, Well developed, No Acute Distress Head: Normocephalic, Atraumatic Eyes: Perrl, EOMI ENT: Moist mucous membranes, No rhinorrhea Neck: Supple, Nontender Cardiovascular: Regular rate, Regular rhythm, No murmurs Respiratory: No distress, CTA bilaterally, Chest nontender Abdomen: Soft, Nontender, Nondistended, Normal bowel sounds Back: Nontender, Normal Inspection Extremities: Nontender, No edema Skin: Normal color, No rash Neurological: Alert, Oriented x3, Cranial nerves II-XII grossly intact, Normal Strength, Normal Sensation Psychological: Normal affect, Normal Mood Diagnostic/Tx/Re-eval - EKG Initial EKG Interpretation: Sinus Rhythm - Initial EKG shows a normal sinus rhythm at a rate of 80 without concerning features of ACS. This does appear grossly unchanged from June 28, 2018. - Medical Decision Making Patient had negative troponins both AMB sets. EKG is a normal sinus rhythm. Chest x-ray was negative. The patient was given Ativan and feels improved. I think this is mostly anxiety. He certainly does have coronary artery disease but given 2 sets of heart enzymes and a normal EKG while symptomatic think that this is less likely to be cardiac in nature. Return if worsening or concerns I advised him that he needs to contact his doctors and get refills of his medications. ED Disposition - Plan for ED Patient: Disposition: Home or Assisted Living Diagnosis: Chest pain, Anxiety Instructions: ED Chest Pain Atypical Unkn Cause, ED Stress React Prescriptions: Lorazepam [Ativan] 0.5 mg PO TID #20 tab Prescription Printed Referrals: Perry Dunn MD [Primary Care Provider] - 3-5 Days
[2019-11-05 09:45] VITALS: O2SAT 98
[2019-11-05 09:48] LABS: Basophil# 0.06 X10^3/uL; Basophil% 0.7 % (0-1); Eosinophil# 0.12 X10^3/uL; Eosinophils% 1.4 % (0-5); Hematocrit 47.5 % (40-54); Hemoglobin 17.3 g/dL (13.0-16.5); Mean Corp Hgb Conc 36.4 g/dL (32-36); Mean Corpuscular Hgb 33.1 pg (27.0-32.0); Mean Corpuscular Volume 90.8 fL (80-94); Mean Platelet Vol. 8.9 fl (6.2-12.0); Monocyte# 0.72 X10^3/uL; Monocyte% 8.2 % (0-10); NRBC Flagged by Analyzer 0 % (0-5); Neutrophil # 4.96 X10^3/uL (2.7-7.7); Neutrophil % 56.2 % (47-70); Platelet Count 263 K/mm3 (150-450); RBC Distribution Width CV 13.7 % (11.6-14.6); RBC Distribution Width SD 43.3 fl (35.1-43.9); Red Blood Count 5.23 M/mm3 (4.6-6.2); White Blood Count 8.8 K/mm3 (4.4-11.0)
[2019-11-05] MEDS: LORazepam 2 MG/ML Syringe 1 MG IV (09:59)
--- NOTE | 2019-11-05 10:00 | RAD_ITS ---
STUDY: X-RAY CHEST REASON FOR EXAM: Male, 48 years old. SOB, LEFT ARM PAIN; -- H/O PR TECHNIQUE: Single AP portable view of the chest. COMPARISON: October 10, 2017. FINDINGS: Cardiac silhouette unremarkable. Pulmonary vascularity unremarkable. Aorta unremarkable. No focal patchy airspace opacities. No pleural effusions. Upper abdomen unremarkable. Osseous structures intact. No pneumothorax. RAD/Chest 1 View (Portable) IMPRESSION: No acute cardiopulmonary findings Electronically Signed: Stanley Garcia DO at 10:52 EDT Tel , Service support ,
[2019-11-05 10:04] LABS: Anion Gap 10 (5-15); BUN 14 mg/dL (7-18); BUN/Creat Ratio 15.4 RATIO (10-20); Calcium,Total 8.7 mg/dL (8.5-10.1); Chloride 106 mmol/L (98-107); Creatinine, Serum 0.91 mg/dL (0.70-1.30); EST Glomerular Filtration Rate 94 mL/min (>60); Est Glom Filt Rate - Afr Amer 114 mL/min (>60); Estimated Creatinine Clearance 98.19 ml/min; Glucose 112 mg/dL (74-106); Potassium 3.4 mmol/L (3.5-5.1); Sodium Level 138 mmol/L (136-145)
[2019-11-05 11:22] VITALS: BP 130/95; PULSE 84
[2019-11-05 13:07] VITALS: BP 111/68; PULSE 72; RESP 16; O2SAT 97
== END 2019-11-05 13:08 | disposition home or self-care (01) ==
PROVIDERS: Emergency Provider Emergency Medicine; PCP Family Medicine
DX: R07.89 Other chest pain (principal); F41.9 Anxiety disorder, unspecified; I25.10 Atherosclerotic heart disease of native coronary artery without angina pectoris; I25.2 Old myocardial infarction; Z95.5 Presence of coronary angioplasty implant and graft; F17.200 Nicotine dependence, unspecified, uncomplicated
CPT/HCPCS: 71045; 80048; 84484; 85025; 93005; 96374; 99285; A4216

== ENCOUNTER 2019-11-27 16:08 | Emergency (ER) | payer MEDICAID, SELFPAY ==
[2019-11-27 16:09] VITALS: BP 123/70; PULSE 84; PULSE 91; RESP 17; TEMP 36.3; O2SAT 99; BMI 25.6
--- NOTE | 2019-11-27 16:20 | EKG12_ITS ---
Test Reason : Blood Pressure : / mmHG Vent. Rate : 082 BPM Atrial Rate : 082 BPM P-R Int : 176 ms QRS Dur : 084 ms QT Int : 382 ms P-R-T Axes : 030 047 103 degrees QTc Int : 446 ms Sinus rhythm with occasional Premature ventricular complexes Low voltage QRS (limb leads) Possible Inferior infarct , age undetermined Abnormal ECG Confirmed by FRED VELEZ, NIKITA ([id number]), supervising editor trailer VICTORIA ZHU ([id number]) on 12/01/2019 10:27:19 AM Referred By: NATHAN Confirmed By:NIKITA IBARRA MD
--- NOTE | 2019-11-27 16:22 | ED.DCSUM_ITS ---
History of Present Illness Chief Complaint: Chest Pain Informant: Patient Onset: Today, Hours Context: Sudden Onset Timing: Intermittent Quality: Tightness Location: Left anterior chest Current Severity: - - No tightness presently Maximum Severity: Moderate Worsened by: Nothing Relieved by: Nothing Associated Symptoms: Tingling left arm Narrative: Patient is a 48-year-old male with coronary disease who had 4 stents placed in [address] elevation AZ this past Sunday and had a stent placed at [facility]. He states he quit smoking on Sunday. He does have history hypertension hypercholesterolemia. He states today while watching TV he developed chest tightness that lasted seconds. He is had several episodes. He denies any associated symptoms. He denies fever, chills night sweats. Denies ocular, visual auditory symptoms. He denies back pain. He denies abdominal pain. He denies black or maroon stool. He denies leg pain, swelling or discoloration. He denies pain with breathing. Patient states he does have a history of anxiety and when he has an anxiety attack he does have chest discomfort which is intermittent and tingling of his arms. Prior similar symptoms: No Recent Illness/Hospitalization: Yes - Past Medical History (1) History of coronary artery stent placement Status: Chronic Comment: CSA-FCT-Rmo-Distal LAD, KARTIK-D1 and POBA-D2 07/15/13 PCI-KARTIK-Mid Cx 06/19/2013 (2) Hyperlipidemia Status: Chronic (3) Hypertension Status: Chronic Past Medical History - Allergies and Home Meds Allergies/Adverse Reactions: Allergies hydrochlorothiazide Adverse Reaction (Severe, Verified 11/27/19 16:09) Pt got very dizzy, dehydrated Primary Care Physician: Perry Dunn MD [Primary Care Provider] - Surgical History: no surgical history, - - low back surgery for spinal canal stenosis Lives: Alone Smoking Status: Current every day smoker Alcohol: None Drugs: None - Family History Maternal Family History: Reports: No pertinent history Paternal Family History: Reports: No pertinent history Review of Systems General: Denies: Chills, Fever, Sweats Eyes: Denies: Visual changes - bilaterally, Blurred Vision - bilaterally ENT: Denies: Rhinorrhea, Sore throat Cardiovascular: Reports: Chest pain Respiratory: Denies: Dyspnea, Cough, Dyspnea on exertion Gastrointestinal: Denies: Abdominal pain, Nausea, Vomiting, Diarrhea, Melena, Hematochezia Genitourinary: Denies: Dysuria, Hematuria, Frequency Musculoskeletal: Denies: Myalgias, Arthralgias, Neck pain, Back pain, Swelling, Extremity Pain Skin: Denies: Rash, Wounds Neurological: Reports: Parasthesia - Left upper extremity. Denies: Headache, Weakness, Numbness, -, - Psych: Reports: Anxiety Hematologic: Denies: Easy bruising, Easy bleeding Allergy: Denies: Uticaria, Swelling of the mouth Physical Exam Vital Signs/Narrative: Vital Signs Temp Pulse Resp BP Pulse Ox 11/27/19 16:09 97.4 F L 84 17 123/70 H 99 Inital Vital Signs reviewed: Yes General: Well nourished, Well developed Head: Normocephalic, Atraumatic Eyes: Perrl, EOMI. Negative for: Pale conjunctiva, Scleral icterus ENT: Moist mucous membranes, No rhinorrhea Neck: Supple, Nontender, No lymphadenopathy, No JVD Cardiovascular: Regular rate, Regular rhythm, No murmurs, Normal S1, Normal S2 Respiratory: No distress, CTA bilaterally, Chest nontender Abdomen: Soft, Nontender, Nondistended, Normal bowel sounds, No masses Back: Nontender, Normal Inspection. Negative for: CVA tenderness, Spinal tenderness Extremities: Nontender, No edema Skin: Normal color, No rash, No Trauma. Negative for: Cyanosis, Diaphoresis, Jaundice Neurological: Alert, Oriented x3, Cranial nerves II-XII grossly intact, Normal Strength, Normal Sensation Psychological: Normal affect, Normal Mood Diagnostic/Tx/Re-eval Impressions Chest X-Ray 11/27/19 16:49 IMPRESSION: Normal x-ray examination of the chest. Electronically Signed: Ciro Rowland, at 17:04 EDT Tel , Service support , 11/27/19 16:49 Chest PA and Lateral [RAD] Stat Laboratory Results 11/27/19 16:35 Troponin I 6.710 H* Repeat troponin is lower. Plan is to discharge to home. - Medical Decision Making Diagnosis includes pericarditis status post AZ, anxiety reaction, GI etiology, pulmonary etiology. EKG, chest x-ray and troponin was obtained. [facility] were obtained. Patient had a lesion in the mid circumflex artery that was stented. The initial elevated troponin was presumed to be secondary to recent AZ. Delta was obtained and the troponin is lower. Therefore will discharge to home ED Disposition - Plan for ED Patient: Disposition: Home or Assisted Living Diagnosis: Chest pain, Anxiety reaction, Recent heart attack Instructions: ED Stress React Referrals: Perry Dunn MD [Primary Care Provider] - As Needed
--- NOTE | 2019-11-27 16:49 | RAD_ITS ---
STUDY: X-RAY CHEST REASON FOR EXAM: Male, 48 years old. chest pain TECHNIQUE: PA and lateral chest COMPARISON: 10/10/2017. FINDINGS: The lungs are clear and expanded. There is no demonstrated pleural abnormality. Normal size heart. Normal mediastinum and satish. Normal visualized pulmonary arteries. Normal visualized aortic arch and descending thoracic aorta. Normal visualized thoracic spine. Normal visualized ribs, clavicles, and shoulders. There is no demonstrated abnormality of the visualized soft tissue structures of the upper abdomen. RAD/Chest PA and Lateral IMPRESSION: Normal x-ray examination of the chest. Electronically Signed: Ciro Rowland, at 17:04 EDT Tel , Service support ,
[2019-11-27 17:08] VITALS: O2SAT 95
[2019-11-27 17:34] VITALS: BP 102/76; PULSE 74; RESP 22; O2SAT 95
[2019-11-27 18:51] VITALS: BP 89/63; PULSE 75; RESP 22; O2SAT 98
[2019-11-27 19:28] VITALS: BP 98/68; PULSE 80; RESP 16; O2SAT 98
[2019-11-27 20:51] VITALS: BP 111/76; PULSE 65; RESP 17; O2SAT 97
== END 2019-11-27 20:52 | disposition home or self-care (01) ==
PROVIDERS: Emergency Provider Emergency Medicine; PCP Family Medicine
DX: R07.89 Other chest pain (principal); F41.1 Generalized anxiety disorder; I25.2 Old myocardial infarction; I10 Essential (primary) hypertension; E78.00 Pure hypercholesterolemia, unspecified; Z95.5 Presence of coronary angioplasty implant and graft; Z79.82 Long term (current) use of aspirin; Z79.899 Other long term (current) drug therapy; F17.200 Nicotine dependence, unspecified, uncomplicated
CPT/HCPCS: 36415; 71046; 84484; 93005; 99285; A4216

== ENCOUNTER → 2020-01-29 14:40 | Outpatient (CLI) | payer MEDICAID, SELFPAY ==
[2019-12-25 11:01] VITALS: BMI 24.3
--- NOTE | 2020-01-29 14:41 | ECHOD_ITS ---
Reason For Study: CHF Procedure This was a 2D Doppler, Color Flow transthoracic echocardiogram. Exam performed in department. Left Ventricle Moderately dilated left ventricle. The estimated ejection fraction is 50-55 %. Posterior-Basal: Mildly hypokinetic. Infero-Basal: Mildly hypokinetic. Right Ventricle Normal size and thickness. Normal systolic function. Atria Normal left atrium. Normal right atrium. Normal atrial septum. Mitral Valve The mitral valve is structurally normal. No prolapse or stenosis seen. Mild (1+) posteriorly directed mitral valve insufficiency. Tricuspid Valve Normal tricuspid valve. Trivial tricuspid valve insufficiency. Right ventricular systolic pressure estimated to be 27 mmHg. Aortic Valve Normal aortic valve. Trisinus/trileaflet aortic valve. Pulmonic Valve Normal pulmonic valve. Great Vessels Normal aortic root. Normal arch. Normal inferior vena cava. Inferior vena cava collapse with sniff. Pericardium/Pleural No pericardial effusion. MMode/2D Measurements & Calculations LVIDd: 6.0 cm IVSd: 0.93 cm Ao root diam: 3.0 cm LVIDs: 4.0 cm LVPWd: 0.94 cm RVDd: 3.2 cm FS: 33.7 % LAV(MOD-bp): 43.2 ml LA A4 area: 14.1 cm2 LA dimension(2D): 3.9 cm LAV(MOD-bp) Indexed: 22.7 ml/m2 LAV(MOD-sp2): 43.0 ml LAV(MOD-sp4): 37.4 ml RA A4 area: 14.0 cm2 Time Measurements MV dec time: 0.20 sec Doppler Measurements & Calculations MV E max soy: 68.8 cm/sec Lat Peak E' Soy: 13.2 cm/sec Med Peak E' Soy: 6.0 cm/sec MV A max soy: 49.5 cm/sec E/E' lat: 5.2 E/E' med: 11.5 MV E/A: 1.4 Ao V2 max: 100.0 cm/sec LV V1 max: 86.0 cm/sec MR max soy: 439.4 cm/sec Ao max P.0 mmHg LV V1 max P.0 mmHg MR max P.2 mmHg MR mean soy: 360.6 cm/sec MR mean P.8 mmHg MR VTI: 167.8 cm PA V2 max: 100.3 cm/sec TR max soy: 232.7 cm/sec TR max P.7 mmHg Interpretation Summary The estimated ejection fraction is 50-55 %. Moderately dilated left ventricle. Posterior-Basal: Mildly hypokinetic Infero-Basal: Mildly hypokinetic Mild (1+) posteriorly directed mitral valve insufficiency. Trivial tricuspid valve insufficiency. Right ventricular systolic pressure estimated to be 27 mmHg. Compared to echo report dated 04/23/2019, LV function is mildly improved from 45% to 50-55%, RVSP not calculated on previous echo. Ordering Physician: Anthony Barr Referring Physician: Perry Dunn Performed By: Harmony Walden RDCS, RVT
== END ==
PROVIDERS: PCP Family Medicine; Referring Provider Nurse Practitioner Family; Visit Provider Nurse Practitioner Family
DX: I25.10 Atherosclerotic heart disease of native coronary artery without angina pectoris (principal); I25.5 Ischemic cardiomyopathy; Z95.5 Presence of coronary angioplasty implant and graft
CPT/HCPCS: 93306

== ENCOUNTER 2020-03-25 16:19 | Emergency (ER) | payer MEDICAID, SELFPAY ==
[2019-12-25 11:01] VITALS: BMI 24.3
[2020-03-25 16:20] VITALS: BP 127/80; PULSE 86; RESP 17; TEMP 36.4; O2SAT 99; BMI 24.2
--- NOTE | 2020-03-25 17:23 | ED.DCSUM_ITS ---
History of Present Illness Chief Complaint: Back Informant: Patient Onset: Days - 8 days Context: Gradual Onset Current Severity: Moderate Maximum Severity: Moderate Narrative: Patient present secondary to upper back and neck pain for the past 8 days. He states he does do a lot of lifting at work but does not remember injuring himself. He was seen at the urgent care last week and given a course of prednisone which did not improve his symptoms. Patient does state that the pain is worsened with movement. Pain does not radiate down into his arms. He has no paresthesias or weakness. - Past Medical History (1) Depression Status: Chronic (2) Atherosclerosis of coronary artery of [place] heart without angina pectoris Status: Chronic Comment: IZF-NHO-Ltc-Distal LAD, KARTIK-D1 and POBA-D2 07/15/13 PCI-KARTIK-Mid Cx 06/19/2013; Drug-eluting stent placement to mid LCx at [facility] on 11/25/2019; (3) History of coronary artery stent placement Status: Chronic Comment: BAV-CPW-Erp-Distal LAD, KARTIK-D1 and POBA-D2 07/15/13 PCI-KARTIK-Mid Cx 06/19/2013; NPL-THG-Utw-Distal LAD, KARTIK-D1 and POBA-D2 07/15/13 PCI-KARTIK-Mid Cx 06/19/2013; Drug-eluting stent placement to mid LCx at [facility] on 11/25/2019; (4) Old myocardial infarction Status: Chronic Comment: lateral posterior 06/18 (5) Hyperlipidemia Status: Chronic (6) Hypertension Status: Chronic Past Medical History - Allergies and Home Meds Allergies/Adverse Reactions: Allergies hydrochlorothiazide Adverse Reaction (Severe, Verified 03/25/20 16:20) Pt got very dizzy, dehydrated Primary Care Physician: Perry Dunn MD [Primary Care Provider] - Prior records reviewed: Yes Surgical History: no surgical history, - - low back surgery for spinal canal stenosis Smoking Status: Former smoker - Family History Maternal Family History: Reports: No pertinent history Paternal Family History: Reports: No pertinent history Review of Systems General: Denies: Chills, Fever Eyes: Denies: Visual changes - bilaterally ENT: Denies: Bilateral ear pain Cardiovascular: Denies: Chest pain Respiratory: Denies: Dyspnea, Cough Gastrointestinal: Denies: Abdominal pain, Nausea, Vomiting, Diarrhea Genitourinary: Denies: Dysuria Musculoskeletal: Reports: Neck pain, Back pain. Denies: Swelling, Extremity Pain Skin: Denies: Rash Neurological: Denies: Headache, Weakness, Parasthesia Hematologic: Denies: Easy bruising, Easy bleeding Allergy: Denies: Uticaria Physical Exam Vital Signs/Narrative: Vital Signs Temp Pulse Resp BP Pulse Ox 03/25/20 16:20 97.6 F L 86 17 127/80 H 99 Inital Vital Signs reviewed: Yes General: Well nourished, Well developed Head: Normocephalic ENT: Moist mucous membranes Neck: Supple Cardiovascular: Regular rate, Regular rhythm Respiratory: No distress, CTA bilaterally Abdomen: Soft, Nontender Back: - - Paraspinal muscle tenderness in the upper thoracic paraspinals and cervical paraspinals. No overlying skin change. Pain worse with flexion of the neck. No meningismus. Extremities: Nontender Skin: Normal color, No rash Neurological: Alert, Oriented x3, Normal Strength, Normal Sensation Psychological: Normal affect Diagnostic/Tx/Re-eval - Medical Decision Making Patient will be given Flexeril to help with muscle spasm. I initially wanted to give him anti-inflammatories, however patient is already on Brilinta and aspirin secondary to his cardiac disease. To avoid any further anti-inflammatories we will give him a short course of [place] for breakthrough pain. Patient has an appointment scheduled with his PCP in 1 month. ED Disposition - Plan for ED Patient: Disposition: Home or Assisted Living Diagnosis: Paraspinal muscle spasm Instructions: ED SPASM Muscle Prescriptions: cycloBENZAPRine HCl [Flexeril] 10 mg PO TID PRN #20 tab PRN Reason: Muscle Spasm Transmission Status: Pending to RO HERNANDE[facility] [address] Hydrocodone Bitart/Apap 5-325 [[place] 5MG-325MG] 1 tablet PO Q6H PRN PRN 3 Days #10 tablet PRN Reason: Pain Transmission Status: Received by RO HERNANDE[facility] [address] Referrals: Perry Dunn MD [Primary Care Provider] - Keep [place] appointment
[2020-03-25] MEDS: HYDROcodone Bitartrate/Apap 5/325 Tablet PO (17:33)
[2020-03-25] MEDS: cycloBENZAPRine HCl 10 MG Tablet PO (17:34)
[2020-03-25 18:12] VITALS: RESP 18
== END 2020-03-25 18:15 | disposition home or self-care (01) ==
PROVIDERS: Emergency Provider Emergency Medicine; PCP Family Medicine
DX: M62.830 Muscle spasm of back (principal); M54.2 Cervicalgia; M54.9 Dorsalgia, unspecified; I10 Essential (primary) hypertension; I25.2 Old myocardial infarction; F32.9 Major depressive disorder, single episode, unspecified; E78.5 Hyperlipidemia, unspecified; I25.10 Atherosclerotic heart disease of native coronary artery without angina pectoris; Z95.5 Presence of coronary angioplasty implant and graft; Z79.82 Long term (current) use of aspirin; Z79.899 Other long term (current) drug therapy; Z87.891 Personal history of nicotine dependence
CPT/HCPCS: 99283

== ENCOUNTER 2020-06-22 22:29 | Emergency (ER) | payer MEDICAID, SELFPAY ==
[2020-03-30 16:20] VITALS: BMI 24.0
[2020-06-22 22:29] VITALS: BP 163/95; PULSE 86; RESP 16; TEMP 36.4; O2SAT 100; BMI 24.3
--- NOTE | 2020-06-22 22:38 | ED.VIS.GEN ---
History of Present Illness Chief Complaint: Anxiety Informant: Patient Onset: - - 30 min Context: Sudden Onset - while resting, sitting on couch Timing: Continuous Quality: tingling in left hand, followed by anxiety Current Severity: Moderate Maximum Severity: Moderate Worsened by: nothing Relieved by: nothing; tried no meds Associated Symptoms: none other Narrative: Patient feels like he is having a panic attack. This is similar to how multiple panic/anxiety attacks have started in the past, tingling in his left hand first, followed by feeling very panicky and anxious. He just wants something for the symptoms. He is not suicidal. He takes Zoloft and has been compliant with it but has nothing at home to use to abort anxiety attacks. No obvious trigger but none in the past as well. Has a history of coronary disease, when he had chest pain without in the past he actually had pain in his chest which she has not had tonight, nor is he had any palpitations or trouble breathing, lightheadedness. No recent illnesses. Eating and drinking well lately. Prior similar symptoms: Yes - same way every other time I have a panic attack - Past Medical History (1) Atherosclerosis of coronary artery of [place] heart without angina pectoris Status: Chronic Comment: DJO-WMA-Auw-Distal LAD, KARTIK-D1 and POBA-D2 07/15/13 PCI-KARTIK-Mid Cx 06/19/2013; Drug-eluting stent placement to mid LCx at [facility] on 11/25/2019; (2) Depression Status: Chronic (3) Hyperlipidemia Status: Chronic (4) Hypertension Status: Chronic (5) Old myocardial infarction Status: Chronic Comment: lateral posterior 06/18 Past Medical History - Allergies and Home Meds Allergies/Adverse Reactions: Allergies hydrochlorothiazide Adverse Reaction (Severe, Verified 06/22/20 22:31) Pt got very dizzy, dehydrated Primary Care Physician: Perry Dunn MD [Primary Care Provider] - Surgical History: - - low back surgery for spinal canal stenosis Smoking Status: Light Smoker (<10/day) - Family History Maternal Family History: Reports: No pertinent history Paternal Family History: Reports: No pertinent history Review of Systems General: Denies: Chills, Fever, Sweats Eyes: Denies: Visual changes - bilaterally, Diplopia ENT: Denies: Rhinorrhea, Sore throat Cardiovascular: Denies: Chest pain, Palpitations Respiratory: Denies: Dyspnea, Cough, Dyspnea on exertion Gastrointestinal: Denies: Abdominal pain, Nausea, Vomiting, Diarrhea, Melena, Hematochezia Genitourinary: Denies: Dysuria, Hematuria, Frequency Musculoskeletal: Denies: Back pain, Extremity Pain Skin: Denies: Rash, Wounds Neurological: Reports: Parasthesia. Denies: Headache, Weakness Psych: Reports: Anxiety. Denies: Suicidal thoughts Physical Exam Vital Signs/Narrative: Vital Signs Temp Pulse Resp BP Pulse Ox 06/22/20 22:29 97.6 F L 86 16 163/95 H 100 Inital Vital Signs reviewed: Yes General: Well nourished, Well developed, No Acute Distress Head: Normocephalic, Atraumatic Eyes: Perrl, EOMI ENT: Moist mucous membranes, No rhinorrhea Neck: Supple, Nontender Cardiovascular: Regular rate, Regular rhythm, No murmurs. Negative for: Tachycardia Respiratory: No distress, CTA bilaterally, Chest nontender Abdomen: Soft, Nontender, Nondistended, Normal bowel sounds Back: Nontender Extremities: Nontender, No edema Skin: Normal color, No rash, No Trauma Neurological: Alert, Oriented x3, Cranial nerves II-XII grossly intact, Normal Strength, Normal Sensation, Normal Gait Psychological: Normal affect, Normal Mood Diagnostic/Tx/Re-eval - Medical Decision Making Patient was given Vistaril and monitored. Other than mild hypertension his vital signs are normal. He felt better and his tingling went away, his symptoms did not resolve but he felt well enough to go home and sleep and I think that is fine at this time, we discussed reasons to return. ED Disposition - Plan for ED Patient: Disposition: Home or Assisted Living Diagnosis: Panic attack Instructions: ED Panic Attack Referrals: Perry Dunn MD [Primary Care Provider] - As Needed
[2020-06-22] MEDS: hydrOXYzine PAM 25 MG Capsule 50 MG PO (22:40)
[2020-06-22 23:21] VITALS: RESP 15
== END 2020-06-22 23:22 | disposition home or self-care (01) ==
PROVIDERS: Emergency Provider Emergency Medicine; PCP Family Medicine
DX: F41.0 Panic disorder [episodic paroxysmal anxiety] (principal); I10 Essential (primary) hypertension; E78.5 Hyperlipidemia, unspecified; I25.2 Old myocardial infarction; F32.9 Major depressive disorder, single episode, unspecified; I25.10 Atherosclerotic heart disease of native coronary artery without angina pectoris; Z95.5 Presence of coronary angioplasty implant and graft; Z79.82 Long term (current) use of aspirin; Z79.899 Other long term (current) drug therapy; F17.200 Nicotine dependence, unspecified, uncomplicated
CPT/HCPCS: 99282

== ENCOUNTER 2020-09-07 16:11 | Emergency (ER) | payer MEDICAID, SELFPAY ==
[2020-09-07 16:11] VITALS: BP 138/94; PULSE 84; RESP 19; TEMP 36.4; O2SAT 97; BMI 25.0
--- NOTE | 2020-09-07 16:20 | EKG12_ITS ---
Test Reason : CP Blood Pressure : / mmHG Vent. Rate : 083 BPM Atrial Rate : 083 BPM P-R Int : 166 ms QRS Dur : 090 ms QT Int : 394 ms P-R-T Axes : 054 010 052 degrees QTc Int : 462 ms Normal sinus rhythm Cannot rule out Inferior infarct , age undetermined Abnormal ECG Confirmed by FRED VELEZ, NIKITA ([id number]), desk editor ADIN MATTHEW ([id number]) on 09/09/2020 9:48:53 AM Referred By: TIM Confirmed By:NIKITA IBARRA MD
[2020-09-07] MEDS: Aspirin 81 MG TAB.CHEW 324 MG PO (16:59)
[2020-09-07] MEDS: LORazepam 1 MG Tablet PO (17:00)
--- NOTE | 2020-09-07 17:00 | RAD_ITS ---
STUDY: X-RAY CHEST REASON FOR EXAM: Male, 49 years old. Chest pain. TECHNIQUE: Single AP portable view of the chest. COMPARISON: 11/27/2019. FINDINGS: The lungs are clear and expanded. There is no demonstrated pleural abnormality. Normal size heart. Normal mediastinum and satish. Normal visualized pulmonary arteries. Normal visualized aortic arch and descending thoracic aorta. There are no osseous changes. There is no demonstrated abnormality of the visualized soft tissue structures of the upper abdomen. RAD/Chest 1 View (Portable) IMPRESSION: No acute cardiopulmonary disease or major interval change. Electronically Signed: Bar Díaz DO at 17:22 EST Tel [phone], Service support ,
[2020-09-07 17:11] VITALS: BP 125/80; PULSE 80; RESP 17; O2SAT 98
[2020-09-07 17:26] LABS: Anion Gap 4 (5-15); BUN 13 mg/dL (7-18); BUN/Creat Ratio 14.8 RATIO (10-20); Calcium,Total 8.9 mg/dL (8.5-10.1); Chloride 107 mmol/L (98-107); Creatinine, Serum 0.88 mg/dL (0.70-1.30); EST Glomerular Filtration Rate 98 mL/min (>60); Est Glom Filt Rate - Afr Amer 118 mL/min (>60); Estimated Creatinine Clearance 100.43 ml/min; Glucose 114 mg/dL (74-106); Potassium 4.2 mmol/L (3.5-5.1); Sodium Level 137 mmol/L (136-145)
[2020-09-07 17:30] LABS: Absolute Lymphocyte Count 2.27 X10^3/uL (0.83-4.51); Absolute Neutrophil Count 2.6 X10^3/uL (2.0-7.7); Basophil# 0.05 X10^3/uL; Basophil% 0.8 % (0-1); Eosinophil# 0.24 X10^3/uL; Hematocrit 46.3 % (40-54); Hemoglobin 15.7 g/dL (13.0-16.5); Lymphocyte # 2.27 X10^3/ul (4.0); Lymphocyte % 38.2 % (19-41); Mean Corp Hgb Conc 33.9 g/dL (32-36); Mean Corpuscular Hgb 30.4 pg (27.0-32.0); Mean Corpuscular Volume 89.7 fL (80-94); Mean Platelet Vol. 8.7 fl (6.2-12.0); Monocyte# 0.72 X10^3/uL; Monocyte% 12.1 % (0-10); NRBC Flagged by Analyzer 0 % (0-5); Neutrophil # 2.64 X10^3/uL (2.7-7.7); Neutrophil % 44.6 % (47-70); Platelet Count 302 K/mm3 (150-450); RBC Distribution Width CV 13.1 % (11.6-14.6); RBC Distribution Width SD 43.2 fl (35.1-43.9); Red Blood Count 5.16 M/mm3 (4.6-6.2); White Blood Count 5.9 K/mm3 (4.4-11.0)
--- NOTE | 2020-09-07 17:53 | ED.VISSUMM ---
- ER Visit Summary Date of Service: 09/07/20 Chief Complaint: Chest pain History of Present Illness: The patient is a [address] Dunn and Dr. Payne. He reports he has chest pain again 35 minutes ago while he was at rest. It is a substernal pressure without radiation. It was 7 on 10 at worst and is 4-10 currently. Is worsened by nothing including exertion, movement or deep breaths. Is also relieved by nothing. He does report he feels mildly short of breath with this. Denies any associated nausea, vomiting, or diaphoresis. He reports that he does have a history of coronary disease. However, he also reports he has had previous problems similar to this with anxiety. He states that he is under a great deal of stress and he quit his job today. Physical Examination: Vitals: Stable. Afebrile. General: Well-nourished and well-developed. Head: Normocephalic atraumatic. Neck: Supple, no lymphadenopathy. No JVD. Nontender. Cardiovascular: Regular rate and rhythm. No murmurs. Respiratory: No respiratory distress. Clear to auscultation bilaterally. Abdominal: Soft, nontender, nondistended, normal bowel sounds. No guarding, rebound, or peritoneal signs. Back: Nontender. Extremities: Nontender, no edema. Skin: Normal color, no rash. Neurologic: Alert and oriented ?3. Cranial nerves II through XII are intact. Normal strength and sensation. Psych: Normal affect. Test Results: EKG is sinus at [address] changes. Is unchanged from November 2019. Initial troponin is negative. Chem-7 shows glucose 114. CBC shows stable neutrophils 45 monocytes of 12. Repeat EKG is unchanged. Repeat troponin is negative. Clinical Impression(s) from Imaging Studies Chest X-Ray 09/07/20 17:00 IMPRESSION: No acute cardiopulmonary disease or major interval change. Electronically Signed: Bar Díaz DO at 17:22 EST Tel [phone], Service support , Emergency Department Course and Treatment: Patient was treated with aspirin. He was also given a dose of Ativan p.o. He is resting comfortably. Treatment Plan: Patient's pain is atypical. His heart score is 4. He will be discharged with instructions to follow-up with his primary care physician as soon as possible. Return to the emergency department for any worsening symptoms. Disposition: To home in improved and stable condition. Impression: 1. Atypical chest pain. 2. Heart score 4. 3. Anxiety. This note was generated with Smartfieldation software. It may contain incorrect words, spelling, and punctuation that were not noted in review of the chart prior to signing ED Disposition - Plan for ED Patient: Instructions: ED Chest Pain, Uncertain Cause Referrals: Perry Dunn MD [Primary Care Provider] - 2 Days
--- NOTE | 2020-09-07 17:54 | EKG12_ITS ---
Test Reason : REPEAT Blood Pressure : / mmHG Vent. Rate : 070 BPM Atrial Rate : 070 BPM P-R Int : 174 ms QRS Dur : 084 ms QT Int : 418 ms P-R-T Axes : 043 -26 047 degrees QTc Int : 451 ms Normal sinus rhythm Cannot rule out Inferior infarct , age undetermined Abnormal ECG Confirmed by FRED VELEZ, NIKITA ([id number]), continuity editor ADIN MATTHEW ([id number]) on 09/09/2020 9:49:05 AM Referred By: POLO Confirmed By:NIKITA IBARRA MD
[2020-09-07 19:27] VITALS: BP 105/74; PULSE 75; RESP 16; O2SAT 98
[2020-09-07 20:08] VITALS: BP 124/71; PULSE 78; RESP 16; O2SAT 98
== END 2020-09-07 20:09 | disposition home or self-care (01) ==
LOC: ED 16:44
PROVIDERS: Emergency Provider Emergency Medicine; PCP Family Medicine
DX: R07.89 Other chest pain (principal); R06.00 Dyspnea, unspecified; F41.9 Anxiety disorder, unspecified; I10 Essential (primary) hypertension; I25.10 Atherosclerotic heart disease of native coronary artery without angina pectoris; E78.00 Pure hypercholesterolemia, unspecified; Z79.82 Long term (current) use of aspirin; Z79.899 Other long term (current) drug therapy; F17.200 Nicotine dependence, unspecified, uncomplicated
CPT/HCPCS: 71045; 80048; 84484; 85025; 93005; 99285; A4216

== ENCOUNTER 2020-12-07 21:13 | Emergency (ER) | payer MEDICAID, SELFPAY ==
[2020-12-07 21:14] VITALS: BP 125/79; PULSE 73; RESP 16; TEMP 36.6; O2SAT 99; BMI 25.1
--- NOTE | 2020-12-07 22:22 | EX.ED.DYSGE1 ---
HPI History of Present Illness Chief Complaint: Wound Check Informant: patient Onset/Context/Timing Onset: Today Context: Sudden Onset Timing: Continuous Quality: Retained gauze pads Location: Anus Worsened by: Not applicable Relieved by: Not applicable Associated Symptoms Associated Symptoms: None Narrative Narrative: Patient is a 50-year-old male who had incision and drainage of hemorrhoids by Dr. Castro today. He was unable to remove the gauze packings. He presents because he cannot remove the gauze packings. He denies orthostatic symptoms. He denies increased pain. He denies drainage. He denies fever or chills. Prior similar symptoms: No Recent Illness/Hospitalization: [facility] Medical History (Updated 12/07/20 @ 22:[address] Anthony Davis MD) Atherosclerosis of coronary artery of [place] heart without angina pectoris Depression Hyperlipidemia Hypertension Nicotine dependence Old myocardial infarction Polysubstance abuse Home Medications aspirin 81 mg PO DAILY 11/27/19 [History Last Taken Unknown] ticagrelor 90 mg tablet 90 mg PO BID #180 tab 12/25/19 [Rx Last Taken Unknown] atorvastatin 40 mg tablet 40 mg PO QHS #90 tab 02/18/20 [Rx Last Taken Unknown] lisinopril 2.5 mg tablet 2.5 mg PO DAILY #90 tab 03/30/20 [Rx Last Taken Unknown] sertraline 50 mg PO DAILY 06/22/20 [History Last Taken Unknown] metoprolol tartrate 25 mg tablet 12.5 mg PO BID #45 tab 08/16/20 [Rx Last Taken Unknown] Allergy/AdvReac Type Severity Reaction Status Date / Time hydrochlorothiazide AdvReac Severe Pt got Verified 09/07/20 16:16 very dizzy, dehydrated Surgical History History of coronary artery stent placement (07/15/13) Previous back surgery Social History Smoking Status: Current every day smoker ROS ROS ED Constitutional Constitutional ED: Denies chills, fever(s), subjective or sweats Cardiovascular Cardiovascular: Denies chest pain or palpitations Respiratory/Chest Respiratory/Chest: Denies dyspnea Gastrointestinal Gastrointestinal: Reports other Details: Slight bleeding status post hemorrhoid surgery ; Denies abdominal pain, diarrhea, nausea or vomiting Hematologic/Lymphatic Hematologic/Lymphatic: Reports systems reviewed and no addt'l complaints, except as documented EXAM Physical Exam Const Vital Signs: 12/07/20 21:14 Temperature 97.8 F Temperature Source Temporal Pulse Rate 73 Respiratory Rate 16 Blood Pressure 125/79 H Blood Pressure Mean 94 Pulse Ox 99 Oxygen Delivery Method Room Air Positive well nourished and well developed General Appearance ED: well developed and NAD Eyes PERRL and EOMs intact bilaterally General Eye ED: Negative for pale conjunctiva Resp normal respiratory effort Cardio regular rate and regular rhythm GI GI Narrative: There is no gauze noted. Apparently the nurse remove the gauze when patient first presented. There is minimal old blood noted. There is no evidence of infection. Neuro oriented x3 and CN's II-XII intact bilaterally Sensorium / Orientation: alert Psych mental status grossly normal Skin no rashes or lesions noted MDM MDM MDM Narrative Medical decision making narrative: Patient presents because he was unable to remove the gauze packings that were placed by Dr. Castro. These were successfully removed by the nursing staff. Nursing staff was instructed to put a feminine shield/napkin in his underwear since he had slight oozing of blood and not soil his underwear. Discharge Plan Triage Chief Complaint: Wound Check ED Provider: Anthony Davis Dx/Rx/DC Orders Clinical Impression: Encounter for post surgical wound check Instructions: ED Post Op Wound Check, Bleeding Prescriptions: No Action ticagrelor 90 mg tablet 90 mg PO BID Qty: 180 RF: 3 lisinopril 2.5 mg tablet 2.5 mg PO DAILY Qty: 90 RF: 3 aspirin 81 MG tablet,chewable 81 mg PO DAILY RF: 0 sertraline 50 MG tablet 50 mg PO DAILY RF: 0 atorvastatin 40 mg tablet 40 mg PO QHS Qty: 90 RF: 3 metoprolol tartrate 25 mg tablet 12.5 mg PO BID Qty: 45 RF: 3 Primary Care Provider: Perry Dunn Referrals: Papi Castro MD [STAFF PHYSICIAN] - Keep [place] appointment Perry Dunn MD [Primary Care Provider] - Disposition Disposition: Home, self care
== END 2020-12-07 22:32 | disposition home or self-care (01) ==
PROVIDERS: Emergency Provider Emergency Medicine; PCP Family Medicine
DX: Z48.01 Encounter for change or removal of surgical wound dressing (principal); I10 Essential (primary) hypertension; E78.5 Hyperlipidemia, unspecified; F32.9 Major depressive disorder, single episode, unspecified; I25.2 Old myocardial infarction; I25.10 Atherosclerotic heart disease of native coronary artery without angina pectoris; Z79.82 Long term (current) use of aspirin; Z79.899 Other long term (current) drug therapy; F17.200 Nicotine dependence, unspecified, uncomplicated
CPT/HCPCS: 99282

== ENCOUNTER 2021-04-07 12:48 | Emergency (ER) | payer MEDICAID, SELFPAY ==
[2021-04-07 12:48] VITALS: BP 138/88; PULSE 75; RESP 18; TEMP 36.7; O2SAT 100; BMI 23.7
--- NOTE | 2021-04-07 14:23 | EDS_ITS ---
HPI History of Present Illness Chief Complaint: Upper Extremity Injury Informant: patient Narrative Narrative: 50-year-old male presents the emergency department with pain in his lateral right forearm and elbow for the past year. He states he was diagnosed with a tendinitis and did some physical therapy but was not able to do anti- inflammatories because of being on Brilinta. He states that he saw Dr. Dunn for this in the past but cannot see him currently because he does not have health insurance. Patient states over the past week it is gotten worse he is tried a TENS unit. Today he noted even more pain second emergency department. 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 [facility] Medical History Atherosclerosis of coronary artery of [place] heart without angina pectoris Depression Essential hypertension History of non-ST elevation myocardial infarction (NSTEMI) Hyperlipidemia Ischemic cardiomyopathy Nicotine dependence Old myocardial infarction Polysubstance abuse Presence of stent in coronary artery (~11/25/19) Home Medications aspirin 81 mg PO DAILY 11/27/19 [History Last Taken Unknown] sertraline 50 mg PO DAILY 06/22/20 [History Last Taken Unknown] atorvastatin 40 mg tablet 40 mg PO QHS #90 tab 01/13/21 [Rx Last Taken Unknown] lisinopril 2.5 mg tablet 2.5 mg PO DAILY #90 tab 01/13/21 [Rx Last Taken Unknown] metoprolol tartrate 25 mg tablet 12.5 mg PO BID #45 tab 01/13/21 [Rx Last Taken Unknown] ticagrelor 90 mg tablet 90 mg PO BID #180 tab 01/13/21 [Rx Last Taken Unknown] hydrocodone-acetaminophen 1 tab PO Q6H PRN PRN 3 Days #10 tablet 04/07/21 [Rx Last Taken Unknown] Allergy/AdvReac Type Severity Reaction Status Date / Time hydrochlorothiazide AdvReac Severe Pt got Verified 12/22/20 16:06 very dizzy, dehydrated Surgical History Presence of coronary angioplasty implant and graft (~11/25/19) Previous back surgery Social History (Updated 04/07/21 @ 14:[address] Papi [place], DO) Smoking Status: Current every day smoker substance use type: does not use ROS ROS ED Constitutional Constitutional ED: Denies chills or weight loss Eyes Eyes: Denies change in vision or diplopia ENT ENT ED: Denies ear pain, rhinorrhea or sore throat Cardiovascular Cardiovascular: Denies chest pain, orthopnea, palpitations or racing heartbeat Respiratory/Chest Respiratory/Chest: Denies cough, dyspnea or orthopnea Gastrointestinal Gastrointestinal: Denies abdominal pain, diarrhea, nausea or vomiting Genitourinary Genitourinary ED: Denies dysuria, hematuria or urinary frequency Musculoskeletal Musculoskeletal: Reports other Details: See history of present illness ; Denies arthralgias or myalgias Integumentary Denies abscess or rash Neurologic Neurologic: Denies headache(s) or weakness Psychiatric Psychiatric: Denies anxiety, depression, suicidal ideation or suicidal thoughts Endocrine Endocrinology: Denies polydipsia, polyphagia or polyuria Allergic/Immunologic Allergic/Immunologic ED: Denies mouth swelling, tongue swelling or urticaria EXAM Physical Exam Const Vital Signs: 04/07/21 12:48 Temperature 98.1 F Temperature Source Temporal Pulse Rate 75 Respiratory Rate 18 Blood Pressure 138/88 H Blood Pressure Mean 104 Pulse Ox 100 Oxygen Delivery Method Room Air Positive well nourished and well developed General Appearance ED: well developed HEENT Reports normocephalic, head/scalp atraumatic and moist mucous membranes Eyes PERRL and EOMs intact bilaterally Neck no lymphadenopathy, supple and no JVD Resp normal respiratory effort and clear to auscultation bilaterally Cardio regular rate, regular rhythm and no murmurs GI normal to inspection, nondistended, normoactive bowel sounds and non-tender Palpation: soft Back/Spine no CVA tenderness and normal ROM Extremity Extremity Narrative: Patient neurovascular intact. Point tenderness to the lateral epicondyle as well as over the extensor carpi radialis muscles. Painful supination against resistance. General Extremety ED: Negative for edema General Extremity: Negative for edema Neuro oriented x3 and CN's II-XII intact bilaterally Sensorium / Orientation: alert Motor Exam: strength 5/5 throughout Psych mental status grossly normal Mood & Affect: Negative for depressed or tearful Skin no rashes or lesions noted and no wounds MDM MDM MDM Narrative Medical decision making narrative: We talked about a variety of treatment options. We will give a dose of Kenalog here. I can write for small amount of pain medication. The patient most likely benefit from orthopedic evaluation. He may need further physical therapy. We talked about lifestyle modification and resting the arm when possible. Discharge Plan Triage Chief Complaint: Upper Extremity Injury ED Provider: Papi Ramirez Dx/Rx/DC Orders Clinical Impression: Epicondylitis, lateral, right, Tendinitis Instructions: Understanding Lateral Epicondylitis, Treating Tennis Elbow, ED Tendonitis Prescriptions: New hydrocodone-acetaminophen [hydrocodone-acetaminophen] 1 TABLET tablet 1 tab PO Q6H PRN PRN (Reason: Pain) 3 Days Qty: 10 RF: 0 No Action aspirin 81 MG tablet,chewable 81 mg PO DAILY RF: 0 sertraline 50 MG tablet 50 mg PO DAILY RF: 0 atorvastatin 40 mg tablet 40 mg PO QHS Qty: 90 RF: 3 lisinopril 2.5 mg tablet 2.5 mg PO DAILY Qty: 90 RF: 3 metoprolol tartrate 25 mg tablet 12.5 mg PO BID Qty: 45 RF: 3 ticagrelor 90 mg tablet 90 mg PO BID Qty: 180 RF: 3 Primary Care Provider: Perry Dunn Referrals: Essie Hudson [NON-STAFF] - 1-2 Weeks Perry Dunn MD [Primary Care Provider] - Disposition Disposition: Home, Self Care
[2021-04-07] MEDS: Triamcinolone Acetonide 40 MG/ML Vial 80 MG IM (14:31)
[2021-04-07 14:35] VITALS: RESP 18
== END 2021-04-07 14:53 | disposition home or self-care (01) ==
LOC: ED 14:30
PROVIDERS: Emergency Provider Emergency Medicine; PCP Family Medicine
DX: M77.11 Lateral epicondylitis, right elbow (principal); I10 Essential (primary) hypertension; E78.5 Hyperlipidemia, unspecified; F32.9 Major depressive disorder, single episode, unspecified; I25.10 Atherosclerotic heart disease of native coronary artery without angina pectoris; I25.2 Old myocardial infarction; I25.5 Ischemic cardiomyopathy; Z95.5 Presence of coronary angioplasty implant and graft; Z79.82 Long term (current) use of aspirin; Z79.899 Other long term (current) drug therapy; F17.200 Nicotine dependence, unspecified, uncomplicated
CPT/HCPCS: 96372; 99282

== ENCOUNTER 2021-05-10 17:47 | Emergency (ER) | payer MEDICAID, SELFPAY ==
[2021-05-10 17:48] VITALS: BP 150/95; PULSE 97; RESP 15; TEMP 36.4; O2SAT 100; BMI 22.8
--- NOTE | 2021-05-10 18:23 | EX.ED.VIS.PS ---
HPI HPI - Psych History of Present Illness Chief Complaint: Anxiety Informant: patient Onset/Context/Timing Onset: Today Context: Gradual Onset Timing: Continuous Worsened by: - (Drinking coffee) Relieved by: Nothing Associated Symptoms Associated Symptoms - Psych: Negative for Suicidal Thoughts, Visual Hallucinations and Auditory Hallucinations Narrative Narrative: Patient presents with increasing anxiety that began today. Patient states he drank a whole pot of coffee before work today. Patient states that after work he started feeling more anxious. Patient states he has been unable to calm himself down. Patient denies any suicidal or homicidal ideations. Patient denies any visual or auditory hallucinations. Patient states nothing makes it better and nothing makes it worse. Patient denies any chest pain or shortness of breath. Patient denies any nausea or vomiting. Patient denies any headaches. PFSH PFS Medical History Atherosclerosis of coronary artery of [place] heart without angina pectoris Depression Essential hypertension History of non-ST elevation myocardial infarction (NSTEMI) Hyperlipidemia Ischemic cardiomyopathy Nicotine dependence Old myocardial infarction Polysubstance abuse Presence of stent in coronary artery (~11/25/19) Home Medications atorvastatin 40 mg tablet 40 mg PO QHS #90 tab 01/13/21 [Rx Last Taken Unknown] lisinopril 2.5 mg tablet 2.5 mg PO DAILY #90 tab 01/13/21 [Rx Last Taken Unknown] ticagrelor 90 mg tablet 90 mg PO BID #180 tab 01/13/21 [Rx Last Taken Unknown] atorvastatin 40 mg PO QHS 05/10/21 [History Last Taken Unknown] Allergy/AdvReac Type Severity Reaction Status Date / Time hydrochlorothiazide AdvReac Severe Pt got Verified 05/10/21 17:50 very dizzy, dehydrated Surgical History Presence of coronary angioplasty implant and graft (~11/25/19) Previous back surgery Social History Smoking Status: Current every day smoker tobacco type: cigarettes substance use type: does not use ROS ROS ED Constitutional Constitutional ED: Denies chills or fever(s) Eyes Eyes: Denies blurry vision or change in vision ENT ENT ED: Denies rhinorrhea or sore throat Cardiovascular Cardiovascular: Denies chest pain or palpitations Respiratory/Chest Respiratory/Chest: Denies cough or dyspnea Gastrointestinal Gastrointestinal: Denies nausea or vomiting Genitourinary Genitourinary ED: Denies dysuria or hematuria Musculoskeletal Musculoskeletal: Denies back pain or neck pain Integumentary Denies abscess or rash Neurologic Neurologic: Denies headache(s) or weakness Psychiatric Psychiatric: Reports anxiety; Denies suicidal ideation or suicidal thoughts Allergic/Immunologic Allergic/Immunologic ED: Denies mouth swelling or urticaria EXAM Physical Exam Const Vital Signs: 05/10/21 17:48 05/10/21 21:14 Temperature 97.6 F L Temperature Source Temporal Pulse Rate 97 84 Respiratory Rate 15 16 Blood Pressure 150/95 H 132/85 H Blood Pressure Mean 113 Pulse Ox 100 99 Oxygen Delivery Method Room Air Positive well nourished and well developed General Appearance ED: well developed HEENT Reports moist mucous membranes Neck supple and no JVD Resp normal respiratory effort and clear to auscultation bilaterally Cardio regular rate, regular rhythm and no murmurs GI normal to inspection, nondistended, normoactive bowel sounds and non-tender Palpation: soft Extremity normal to inspection General Extremety ED: Negative for edema or tenderness General Extremity: Negative for edema Neuro oriented x3, CN's II-XII intact bilaterally and no sensory deficits noted Sensorium / Orientation: alert Motor Exam: strength 5/5 throughout Psych mental status grossly normal Appearance: grossly normal, appropriate and well kempt Activity / Motor Behavior: appropriate eye contact Speech: normal speech Mood & Affect: anxious Thought Content: No suicidality, No homicidality and No hallucination(s) Attention / Concentration: attention grossly intact and concentration grossly intact Skin no rashes or lesions noted MDM MDM MDM Narrative Medical decision making narrative: Patient was given a dose of Vistaril here. Patient felt better on reevaluation. Patient states he was feeling back to normal. Patient was instructed to follow-up with his primary care physician in 7 to 10 days. Patient was instructed to decrease his coffee intake. Patient was instructed to return if worse in any way. Patient understood and was agreeable with the plan. All questions were answered. Discharge Plan Triage Chief Complaint: Anxiety ED Provider: Stanley Galeas Dx/Rx/DC Orders Clinical Impression: Anxiety Instructions: ED Anxiety Reaction Prescriptions: No Action atorvastatin 40 mg tablet 40 mg PO QHS RF: 0 atorvastatin 40 mg tablet 40 mg PO QHS Qty: 90 RF: 3 lisinopril 2.5 mg tablet 2.5 mg PO DAILY Qty: 90 RF: 3 ticagrelor 90 mg tablet 90 mg PO BID Qty: 180 RF: 3 Primary Care Provider: Perry Dunn Referrals: Perry Dunn MD [Primary Care Provider] - 5-7 Days Disposition Disposition: Home, Self Care Discharge Date/Time: 05/10/21 21:15
[2021-05-10] MEDS: hydrOXYzine PAM 25 MG Capsule PO (18:47)
[2021-05-10 21:14] VITALS: BP 132/85; PULSE 84; RESP 16; O2SAT 99
== END 2021-05-10 21:15 | disposition home or self-care (01) ==
PROVIDERS: Emergency Provider Emergency Medicine; PCP Family Medicine
DX: F41.9 Anxiety disorder, unspecified (principal); F32.A Depression, unspecified; E78.5 Hyperlipidemia, unspecified; I10 Essential (primary) hypertension; I25.2 Old myocardial infarction; I25.5 Ischemic cardiomyopathy; I25.10 Atherosclerotic heart disease of native coronary artery without angina pectoris; Z95.5 Presence of coronary angioplasty implant and graft; Z79.899 Other long term (current) drug therapy; F17.210 Nicotine dependence, cigarettes, uncomplicated
CPT/HCPCS: 99283

== ENCOUNTER 2021-05-17 20:43 | Emergency (ER) | payer MEDICAID, SELFPAY ==
[2021-05-17 20:46] VITALS: BP 147/99; PULSE 87; RESP 19; TEMP 36.1; O2SAT 99; BMI 22.8
--- NOTE | 2021-05-17 21:26 | EKG12_ITS ---
Test Reason : CP Blood Pressure : / mmHG Vent. Rate : 078 BPM Atrial Rate : 078 BPM P-R Int : 162 ms QRS Dur : 092 ms QT Int : 394 ms P-R-T Axes : 036 001 007 degrees QTc Int : 449 ms Normal sinus rhythm Low voltage QRS Borderline ECG Confirmed by ESTRELLITA VELEZ, MART ([id number]), department store manager RAFA ROSEN ([id number]) on 05/18/2021 9:10:27 AM Referred By: BB Confirmed By:MART HARO MD
--- NOTE | 2021-05-17 21:36 | EDS_ITS ---
HPI History of Present Illness Chief Complaint: Chest Pain Informant: patient Onset/Context/Timing Onset: Hours (1.5) Activity at onset: sudden and rest (Sitting watching TV on the couch) Timing: Continuous Quality: Positive for - (Discomfort in left upper extremity) Location: - (No chest discomfort) Current Severity: Mild Maximum Severity: Severe Worsened By: Nothing Relieved By: Nothing Associated Symptoms: Positive for Dyspnea and Palpitations; Negative for Nausea, Vomiting, Diaphoresis, Cough, Fever, Lightheadedness and Acid Reflux Narrative Narrative: Patient states he was sitting on the couch and he started having palpitations that felt like his heart beating hard but not fast or irregularly, along with discomfort in his left upper extremity and some tingling. Mild shortness of breath, states it is difficult to tell if this is anxiety or not. He has a history of heart attacks in the past, he states he had chest pain with his last one but not with the initial 1, mostly due to shortness of breath and left upper extremity discomfort. He smokes. He is on Brilinta but takes no other medications he was supposed to be on including aspirin, because he does not have medical insurance and is not able to afford all the medications. [facility] Medical History Atherosclerosis of coronary artery of [place] heart without angina pectoris Depression Essential hypertension History of non-ST elevation myocardial infarction (NSTEMI) Hyperlipidemia Ischemic cardiomyopathy Nicotine dependence Old myocardial infarction Polysubstance abuse Presence of stent in coronary artery (~11/25/19) Home Medications lisinopril 2.5 mg tablet 2.5 mg PO DAILY #90 tab 01/13/21 [Rx Last Taken Unknown] ticagrelor 90 mg tablet 90 mg PO BID #180 tab 01/13/21 [Rx Last Taken Unknown] atorvastatin 40 mg PO QHS 05/10/21 [History Last Taken Unknown] Allergy/AdvReac Type Severity Reaction Status Date / Time hydrochlorothiazide AdvReac Severe Pt got Verified 05/17/21 20:48 very dizzy, dehydrated Surgical History Presence of coronary angioplasty implant and graft (~11/25/19) Previous back surgery Social History Smoking Status: Current every day smoker tobacco type: cigarettes substance use type: does not use ROS ROS ED Constitutional Constitutional ED: Denies chills or fever(s) Eyes Eyes: Denies change in vision or diplopia ENT ENT ED: Denies rhinorrhea or sore throat Cardiovascular Cardiovascular: Reports as per HPI, chest pain and palpitations Respiratory/Chest Respiratory/Chest: Reports dyspnea; Denies cough Gastrointestinal Gastrointestinal: Denies abdominal pain, diarrhea, nausea or vomiting Genitourinary Genitourinary ED: Denies dysuria or hematuria Musculoskeletal Musculoskeletal: Denies back pain or neck pain Integumentary Denies abscess or rash Neurologic Neurologic: Denies headache(s), paresthesias or weakness Psychiatric Psychiatric: Denies anxiety or suicidal thoughts EXAM Physical Exam Const Vital Signs: 05/17/21 20:46 05/17/21 20:50 05/17/21 21:31 Temperature 97 F L Temperature Source Temporal Pulse Rate 87 Respiratory Rate 19 H Respiratory Effort Normal Non-Labored Blood Pressure 147/99 H Blood Pressure Mean 115 Pulse Ox 99 Oxygen Delivery Method Room Air Room Air 05/17/21 21:44 05/17/21 23:00 05/17/21 23:47 Temperature Temperature Source Pulse Rate 71 69 69 Respiratory Rate 16 16 16 Respiratory Effort Blood Pressure 109/78 112/68 106/74 Blood Pressure Mean 88 82 Pulse Ox 98 98 98 Oxygen Delivery Method Room Air Room Air Positive well nourished and well developed General Appearance ED: well developed and NAD HEENT Reports moist mucous membranes normocephalic and atraumatic Eyes PERRL and EOMs intact bilaterally Neck full ROM and supple Resp normal respiratory effort and clear to auscultation bilaterally Cardio regular rate, regular rhythm, no murmurs, no JVD and peripheral pulses 2+ throughout GI non-tender and non-distended Auscultation: normoactive bowel sounds Palpation: soft Back/Spine no CVA tenderness General Back: other FROM Extremity normal to inspection and no calf tenderness General Extremety ED: Negative for edema, pulses abnormal or tenderness General Extremity: Negative for edema or pulses abnormal Neuro oriented x3, CN's II-XII intact bilaterally and no sensory deficits noted Sensorium / Orientation: awake and alert Motor Exam: strength 5/5 throughout Skin no rashes or lesions noted and no wounds Heart Score History: Moderately Suspicious ECG: Normal Age: >45 - <65 years Risk Factors: >/= 3 Risk Factors or History of CAD Troponin: </= Normal Limit Score: 4 MDM MDM MDM Narrative Medical decision making narrative: Initial work-up is unremarkable, including his EKG and troponin high-sensitivity at 9. Nitroglycerin was ordered given his history and the nature of his symptoms, however his dyspnea and left arm discomfort resolved prior to him being offered nitroglycerin and he declined it. At this time it is about 2 hours post troponin measurement, he has had no recurrence of any symptoms in his feeling fine and asymptomatic. He was having symptoms when he first got here and the EKG was performed, it is normal sinus rhythm at 78, normal intervals normal axis no acute injury pattern. Does have some low voltage in the limb leads with some artifact, but this is unchanged compared with his prior. At this time I think would be reasonable to do a 2- hour delta troponin and if negative, he can be safely discharged home the with close outpatient follow-up with his doctor, and I advised him to take baby aspirin every day in addition to his Brilinta at the very least. He is amenable to that plan. Repeat troponin 9, for a delta of 0. Discharged to follow-up. Lab Data Attestation: I reviewed the patient's lab results. Labs: Laboratory Results - last 24 hr 05/17/21 05/17/21 05/17/21 20:50 20:50 23:05 WBC 9.4 RBC 5.39 Hgb 16.6 H Hct 48.5 MCV 90.0 MCH 30.8 MCHC 34.2 RDW Std Deviation 44.3 H RDW Coeff of Jacqueline 13.3 Plt Count 307 MPV 8.7 Immature Gran % (Auto) 0.400 Neut % (Auto) 46.6 L Lymph % (Auto) 42.4 H [place] % (Auto) 9.4 Eos % (Auto) 0.6 Baso % (Auto) 0.6 Absolute Neuts (auto) 4.4 Absolute Lymphs (auto) 3.96 Nucleated RBC % 0 Sodium 140 Potassium 3.2 L Chloride 103 Carbon Dioxide 29.0 Anion Gap 8 BUN 17 Creatinine 0.97 Estim Creat Clear Calc 89.60 Est GFR (MDRD) Af Amer 105 Est GFR (MDRD) Non-Af 87 BUN/Creatinine Ratio 17.5 Glucose 101 Calcium 9.1 Troponin I High Sens 9 9 Radiography Chest X-Ray - ED: 1 View, Read by ED Physician and No Acute Disease Diagnostic Testing: Clinical Impression(s) from Imaging Studies Chest X-Ray 05/17/21 21:55 IMPRESSION: No radiographic evidence of acute cardiopulmonary disease. at 2229 Reported and signed by: Van Van MD Electronically Signed: Van Van MD at 22:28 EDT Tel , Service support , EKG Initial EKG: Attestation: I personally reviewed and interpreted this EKG as follows: Interpretation: Sinus Rhythm and No Acute Injury Pattern Prior EKG tracings: available for review Prior: Unchanged Discharge Plan Triage Chief Complaint: Chest Pain ED Provider: Sergo Flores Dx/Rx/DC Orders Clinical Impression: Palpitations, Arm pain, left, History of coronary artery disease Instructions: ED Palpitations Prescriptions: No Action atorvastatin 40 mg tablet 40 mg PO QHS RF: 0 lisinopril 2.5 mg tablet 2.5 mg PO DAILY Qty: 90 RF: 3 ticagrelor 90 mg tablet 90 mg PO BID Qty: 180 RF: 3 Primary Care Provider: Perry Dunn Referrals: Perry Dunn MD [Primary Care Provider] - As soon as possible Activity Restrictions/Additional Instructions: Take at least a baby aspirin 81 mg daily, in addition to your prescriptions that you have. Disposition Disposition: Home, Self Care Discharge Date/Time: 05/17/21 23:49
[2021-05-17] MEDS: Aspirin 81 MG TAB.CHEW 324 MG PO (21:37)
[2021-05-17 21:41] LABS: Absolute Lymphocyte Count 3.96 X10^3/uL (0.83-4.51); Absolute Neutrophil Count 4.4 X10^3/uL (2.0-7.7); Basophil# 0.06 X10^3/uL; Basophil% 0.6 % (0-1); Eosinophil# 0.06 X10^3/uL; Eosinophils% 0.6 % (0-5); Hematocrit 48.5 % (40-54); Hemoglobin 16.6 g/dL (13.0-16.5); Lymphocyte # 3.96 X10^3/ul (0.83-4.51); Lymphocyte % 42.4 % (19-41); Mean Corp Hgb Conc 34.2 g/dL (32-36); Mean Corpuscular Hgb 30.8 pg (27.0-32.0); Mean Platelet Vol. 8.7 fl (6.2-12.0); Monocyte# 0.88 X10^3/uL; Monocyte% 9.4 % (0-10); NRBC Flagged by Analyzer 0 % (0-5); Neutrophil # 4.35 X10^3/uL (2.7-7.7); Neutrophil % 46.6 % (47-70); Platelet Count 307 K/mm3 (150-450); RBC Distribution Width CV 13.3 % (11.6-14.6); RBC Distribution Width SD 44.3 fl (35.1-43.9); Red Blood Count 5.39 M/mm3 (4.6-6.2); White Blood Count 9.4 K/mm3 (4.4-11.0)
[2021-05-17] MEDS: 0.9% Normal Saline 1,000 ML 1000 ML IV (21:43)
[2021-05-17 21:44] VITALS: BP 109/78; PULSE 71; RESP 16; O2SAT 98
--- NOTE | 2021-05-17 21:55 | RAD_ITS ---
HISTORY: chest pain EXAMINATION/TECHNIQUE: XR Chest 1 View: Portable upright AP chest x-ray COMPARISON: September 07, 2020 FINDINGS: LINES/DEVICES: None. LUNGS: No consolidation, edema or effusion. No pneumothorax. MEDIASTINUM AND CARDIOVASCULAR STRUCTURES: Cardiac silhouette not enlarged. Central airways and mediastinal contour are unremarkable. BONES AND SOFT TISSUES: No acute bony abnormalities. RAD/Chest 1 View (Portable) IMPRESSION: No radiographic evidence of acute cardiopulmonary disease. at 2229 Reported and signed by: Van Van MD Electronically Signed: Van Van MD at 22:28 EDT Tel , Service support ,
[2021-05-17 21:58] LABS: Anion Gap 8 (5-15); BUN 17 mg/dL (7-18); BUN/Creat Ratio 17.5 RATIO (10-20); Calcium,Total 9.1 mg/dL (8.5-10.1); Chloride 103 mmol/L (98-107); Creatinine, Serum 0.97 mg/dL (0.70-1.30); EST Glomerular Filtration Rate 87 mL/min (>60); Est Glom Filt Rate - Afr Amer 105 mL/min (>60); Glucose 101 mg/dL (74-106); Potassium 3.2 mmol/L (3.5-5.1); Sodium Level 140 mmol/L (136-145); Troponin-I HS 9 pg/mL (3.0-78.0)
[2021-05-17 23:00] VITALS: BP 112/68; PULSE 69; RESP 16; O2SAT 98
[2021-05-17 23:29] LABS: Troponin-I HS 9 pg/mL (3.0-78.0)
[2021-05-17 23:47] VITALS: BP 106/74; PULSE 69; RESP 16; O2SAT 98
== END 2021-05-17 23:49 | disposition home or self-care (01) ==
PROVIDERS: Emergency Provider Emergency Medicine; PCP Family Medicine
DX: R00.2 Palpitations (principal); M79.602 Pain in left arm; I25.10 Atherosclerotic heart disease of native coronary artery without angina pectoris; I10 Essential (primary) hypertension; I25.2 Old myocardial infarction; I25.5 Ischemic cardiomyopathy; E78.5 Hyperlipidemia, unspecified; F32.A Depression, unspecified; Z95.5 Presence of coronary angioplasty implant and graft; Z79.899 Other long term (current) drug therapy; F17.210 Nicotine dependence, cigarettes, uncomplicated
CPT/HCPCS: 71045; 80048; 84484; 85025; 93005; 96360; 99284; J7030; A4216

== ENCOUNTER 2021-07-14 16:49 | Emergency (ER) | payer MEDICAID, SELFPAY ==
[2021-07-14] VITALS (7 sets, daily range): BP systolic 117–137; BP diastolic 87–89; PULSE 65–86; RESP 18–22; TEMP 36.3; O2SAT 96–99; BMI 23.1
--- NOTE | 2021-07-14 16:59 | EKG12_ITS ---
Test Reason : CHEST PAIN Blood Pressure : / mmHG Vent. Rate : 078 BPM Atrial Rate : 078 BPM P-R Int : 172 ms QRS Dur : 088 ms QT Int : 398 ms P-R-T Axes : 022 -16 -08 degrees QTc Int : 453 ms Normal sinus rhythm Inferior infarct , age undetermined Abnormal ECG Confirmed by ESTRELLITA VELEZ, MART ([id number]), senior technical editor RAFA ROSEN ([id number]) on 07/15/2021 11:40:39 AM Referred By: EDITH Confirmed By:MART HARO MD
[2021-07-14 17:13] LABS: Absolute Lymphocyte Count 2.86 X10^3/uL (0.83-4.51); Absolute Neutrophil Count 5.5 X10^3/uL (2.0-7.7); Basophil# 0.06 X10^3/uL; Basophil% 0.6 % (0-1); Eosinophils% 1.1 % (0-5); Hematocrit 46.6 % (40-54); Hemoglobin 15.9 g/dL (13.0-16.5); Lymphocyte # 2.86 X10^3/ul (0.83-4.51); Lymphocyte % 30.6 % (19-41); Mean Corp Hgb Conc 34.1 g/dL (32-36); Mean Corpuscular Hgb 30.8 pg (27.0-32.0); Mean Corpuscular Volume 90.3 fL (80-94); Mean Platelet Vol. 8.9 fl (6.2-12.0); Monocyte# 0.81 X10^3/uL; Monocyte% 8.7 % (0-10); NRBC Flagged by Analyzer 0 % (0-5); Neutrophil # 5.47 X10^3/uL (2.7-7.7); Neutrophil % 58.4 % (47-70); Platelet Count 297 K/mm3 (150-450); RBC Distribution Width CV 12.9 % (11.6-14.6); RBC Distribution Width SD 42.6 fl (35.1-43.9); Red Blood Count 5.16 M/mm3 (4.6-6.2); White Blood Count 9.4 K/mm3 (4.4-11.0)
--- NOTE | 2021-07-14 17:20 | RAD_ITS ---
STUDY: X-RAY CHEST REASON FOR EXAM: Male, 50 years old. Chest pain TECHNIQUE: Single AP portable view of the chest. COMPARISON: 05/17/2021 FINDINGS: EKG leads overlie the chest The lungs are clear and expanded. There is no demonstrated pleural abnormality. Normal size heart. Normal mediastinum and satish. Normal visualized pulmonary arteries. Normal visualized aortic arch and descending thoracic aorta. Normal visualized thoracic spine. Normal visualized ribs, clavicles, and shoulders. There is no demonstrated abnormality of the visualized soft tissue structures of the upper abdomen. RAD/Chest 1 View (Portable) IMPRESSION: No acute pulmonary process Electronically Signed: Petros Ruiz MD at 17:36 EST , Service support ,
--- NOTE | 2021-07-14 17:28 | EDS_ITS ---
HPI History of Present Illness Chief Complaint: Chest Pain Informant: patient Onset/Context/Timing Onset: Today Activity at onset: gradual Quality: Positive for Pressure Location: Substernal Current Severity: Mild Maximum Severity: Mild Narrative Narrative: Patient presents secondary to substernal chest pressure that have been ongoing approximate 1 hour at the time of his arrival to the ER. He reports some mild shortness of breath. He denies sweats. Patient does have a history of coronary disease with prior MIs. Most recent heart attack was in November 2019. No recent changes to his cardiac meds. He did recently get started on Prozac for anxiety. Patient states he has not had a stress test or heart cath since the time of his last PA. He does report feeling more fatigued and winded with exertion the last couple weeks. [facility], [facility] Medical History Atherosclerosis of coronary artery of [place] heart without angina pectoris Depression Essential hypertension History of non-ST elevation myocardial infarction (NSTEMI) Hyperlipidemia Ischemic cardiomyopathy Nicotine dependence Old myocardial infarction Polysubstance abuse Presence of stent in coronary artery (~11/25/19) Home Medications lisinopril 2.5 mg tablet 2.5 mg PO DAILY #90 tab 01/13/21 [Rx Last Taken Unknown] ticagrelor 90 mg tablet 90 mg PO BID #180 tab 01/13/21 [Rx Last Taken Unknown] atorvastatin 40 mg PO QHS 05/10/21 [History Last Taken Unknown] Allergy/AdvReac Type Severity Reaction Status Date / Time hydrochlorothiazide AdvReac Severe Pt got Verified 07/14/21 16:50 very dizzy, dehydrated Surgical History Presence of coronary angioplasty implant and graft (~11/25/19) Previous back surgery Social History Smoking Status: Current every day smoker tobacco type: cigarettes substance use type: does not use ROS ROS ED Constitutional Constitutional ED: Denies chills or fever(s) Eyes Eyes: Denies change in vision ENT ENT ED: Denies sore throat Cardiovascular Cardiovascular: Reports chest pain Respiratory/Chest Respiratory/Chest: Reports dyspnea; Denies cough Gastrointestinal Gastrointestinal: Denies abdominal pain, diarrhea, nausea or vomiting Genitourinary Genitourinary ED: Denies dysuria Musculoskeletal Musculoskeletal: Denies back pain Integumentary Denies rash Neurologic Neurologic: Denies headache(s) or weakness Allergic/Immunologic Allergic/Immunologic ED: Denies urticaria EXAM Physical Exam Const Vital Signs: 07/14/21 16:50 07/14/21 17:15 07/14/21 17:58 Temperature 97.3 F L Temperature Source Temporal Pulse Rate 86 Respiratory Rate 18 Blood Pressure 137/88 H Blood Pressure Mean 104 Pulse Ox 99 99 96 Oxygen Delivery Method Room Air Room Air Room Air 07/14/21 18:03 07/14/21 19:31 Temperature Temperature Source Pulse Rate 82 65 Respiratory Rate 20 H 20 H Blood Pressure 117/88 H 122/87 H Blood Pressure Mean 97 98 Pulse Ox 98 98 Oxygen Delivery Method Room Air Room Air Positive well nourished and well developed General Appearance ED: well developed HEENT Reports normocephalic and head/scalp atraumatic Eyes PERRL and EOMs intact bilaterally Neck supple Chest Wall inspection of chest normal and palpation of chest normal Resp normal respiratory effort and clear to auscultation bilaterally Cardio regular rate and regular rhythm GI normal to inspection, nondistended, normoactive bowel sounds and non-tender Palpation: soft Extremity normal to inspection Neuro oriented x3 and no sensory deficits noted Sensorium / Orientation: alert Motor Exam: strength 5/5 throughout Psych mental status grossly normal Skin no rashes or lesions noted Heart Score History: Moderately Suspicious ECG: Normal Age: >45 - <65 years Risk Factors: >/= 3 Risk Factors or History of CAD Troponin: </= Normal Limit Score: 4 MDM MDM MDM Narrative Medical decision making narrative: Patient had already taken 1 baby aspirin prior to arrival. 3 additional baby aspirin are given. EKG, lab work, chest x- ray obtained. Lab Data Attestation: I reviewed the patient's lab results. Labs: Laboratory Results - last 24 hr 07/14/21 07/14/21 07/14/21 17:10 17:10 17:25 WBC 9.4 RBC 5.16 Hgb 15.9 Hct 46.6 MCV 90.3 MCH 30.8 MCHC 34.1 RDW Std Deviation 42.6 RDW Coeff of Jacqueline 12.9 Plt Count 297 MPV 8.9 Immature Gran % (Auto) 0.600 Neut % (Auto) 58.4 Lymph % (Auto) 30.6 [place] % (Auto) 8.7 Eos % (Auto) 1.1 Baso % (Auto) 0.6 Absolute Neuts (auto) 5.5 Absolute Lymphs (auto) 2.86 Nucleated RBC % 0 Sodium 141 Potassium 3.5 Chloride 104 Carbon Dioxide 30.0 Anion Gap 7 BUN 17 Creatinine 0.89 Estim Creat Clear Calc 98.19 Est GFR (MDRD) Af Amer 116 Est GFR (MDRD) Non-Af 96 BUN/Creatinine Ratio 19.1 Glucose 92 Calcium 9.6 Troponin I High Sens 7 6 Radiography Chest X-Ray - ED: 1 View, Read by ED Physician, Normal, Heart, Lungs and Mediastinum Diagnostic Testing: Clinical Impression(s) from Imaging Studies Chest X-Ray 07/14/21 17:20 IMPRESSION: No acute pulmonary process Electronically Signed: Petros Ruiz MD at 17:36 EST , Service support , EKG Initial EKG: Attestation: I personally reviewed and interpreted this EKG as follows: Interpretation: Sinus Rhythm (Sinus at 78 with no acute ischemia.) Treatment and Re-Evaluation Comments:: On repeat evaluation patient resting comfortably. Initial troponin drawn with approximately 1-1/2 hours symptoms and negative. Chest x-ray clear. 2-hour repeat troponin obtained and remains normal. At this time patient is comfortable with discharge to home and close follow-up. He does have a cardiology appointment next week. Encouraged him to return for any worsening symptoms or concerns. Discharge Plan Triage Chief Complaint: Chest Pain ED Provider: Shazia Moran Dx/Rx/DC Orders Clinical Impression: Chest pain Instructions: ED Chest Pain, Uncertain Cause Prescriptions: No Action atorvastatin 40 mg tablet 40 mg PO QHS RF: 0 lisinopril 2.5 mg tablet 2.5 mg PO DAILY Qty: 90 RF: 3 ticagrelor 90 mg tablet 90 mg PO BID Qty: 180 RF: 3 Primary Care Provider: Perry Dunn Referrals: Michael Mcdaniels MD [STAFF PHYSICIAN] - Keep [place] appointment Perry Dunn MD [Primary Care Provider] - Disposition Disposition: Home, Self Care
[2021-07-14 17:36] LABS: Anion Gap 7 (5-15); BUN 17 mg/dL (7-18); BUN/Creat Ratio 19.1 RATIO (10-20); Calcium,Total 9.6 mg/dL (8.5-10.1); Chloride 104 mmol/L (98-107); Creatinine, Serum 0.89 mg/dL (0.70-1.30); EST Glomerular Filtration Rate 96 mL/min (>60); Est Glom Filt Rate - Afr Amer 116 mL/min (>60); Estimated Creatinine Clearance 98.19 ml/min; Glucose 92 mg/dL (74-106); Potassium 3.5 mmol/L (3.5-5.1); Sodium Level 141 mmol/L (136-145); Troponin-I HS 7 pg/mL (3.0-78.0)
[2021-07-14] MEDS: Aspirin 81 MG TAB.CHEW 243 MG PO (18:02)
[2021-07-14 19:54] LABS: Troponin-I HS 6 pg/mL (3.0-78.0)
== END 2021-07-14 20:27 | disposition home or self-care (01) ==
PROVIDERS: Emergency Provider Emergency Medicine; PCP Family Medicine
DX: R07.89 Other chest pain (principal); R06.00 Dyspnea, unspecified; I10 Essential (primary) hypertension; E78.5 Hyperlipidemia, unspecified; F32.A Depression, unspecified; F41.9 Anxiety disorder, unspecified; I25.10 Atherosclerotic heart disease of native coronary artery without angina pectoris; I25.2 Old myocardial infarction; I25.5 Ischemic cardiomyopathy; Z95.5 Presence of coronary angioplasty implant and graft; Z79.899 Other long term (current) drug therapy; F17.210 Nicotine dependence, cigarettes, uncomplicated
CPT/HCPCS: 36415; 71045; 80048; 84484; 85025; 93005; 99285; A4216

== ENCOUNTER 2021-09-01 18:49 | Emergency (ER) | payer MEDICAID, SELFPAY ==
[2021-09-01 18:49] VITALS: BP 113/82; PULSE 82; PULSE 90; RESP 16; RESP 18; TEMP 36.9; O2SAT 96; O2SAT 97; BMI 24.7
--- NOTE | 2021-09-01 18:56 | EKG12_ITS ---
Test Reason : CP Blood Pressure : / mmHG Vent. Rate : 077 BPM Atrial Rate : 077 BPM P-R Int : 168 ms QRS Dur : 084 ms QT Int : 398 ms P-R-T Axes : 042 -01 004 degrees QTc Int : 450 ms Normal sinus rhythm Inferior infarct , age undetermined Abnormal ECG Confirmed by ESTRELLITA VELEZ, MART ([id number]), editor producer RAFA ROSEN ([id number]) on 09/05/2021 10:55:22 AM Referred By: KAREN Confirmed By:MART HARO MD
[2021-09-01 18:57] VITALS: O2SAT 96
--- NOTE | 2021-09-01 18:58 | ED.RN ---
patient was given 4 asa 81mg at 1839, y squad. They gave 1 nitro at 184 and patient reports did help. Pain had been 6/10 and now 2/10.
[2021-09-01 19:05] VITALS: BP 115/84; PULSE 81; RESP 22; O2SAT 95
--- NOTE | 2021-09-01 19:06 | RAD_ITS ---
STUDY: X-RAY CHEST REASON FOR EXAM: Male, 50 years old. CHEST PAIN chest pain TECHNIQUE: XR Chest 1 View COMPARISON: 9 FINDINGS: There is no demonstrated pleural abnormality. Normal size heart. Normal mediastinum and satish. Normal visualized pulmonary arteries. Normal visualized aortic arch and descending thoracic aorta. Normal visualized thoracic spine. Normal visualized ribs, clavicles, and shoulders. There is no demonstrated abnormality of the visualized soft tissue structures of the upper abdomen. RAD/Chest 1 View (Portable) IMPRESSION: There are no acute findings. Electronically Signed: Bigg Osuna MD at 19:30 EST ,
[2021-09-01 19:34] LABS: Anion Gap 6 (5-15); BUN 14 mg/dL (7-18); BUN/Creat Ratio 15.3 RATIO (10-20); Chloride 105 mmol/L (98-107); Creatinine, Serum 0.92 mg/dL (0.70-1.30); EST Glomerular Filtration Rate 92 mL/min (>60); Est Glom Filt Rate - Afr Amer 112 mL/min (>60); Estimated Creatinine Clearance 94.99 ml/min; Glucose 121 mg/dL (74-106); Potassium 3.7 mmol/L (3.5-5.1); Sodium Level 138 mmol/L (136-145); Troponin-I HS 10 pg/mL (3.0-78.0)
[2021-09-01 19:42] LABS: Hematocrit 45.4 % (40-54); Hemoglobin 15.9 g/dL (13.0-16.5); Mean Corpuscular Hgb 31.6 pg (27.0-32.0); Mean Corpuscular Volume 90.3 fL (80-94); Mean Platelet Vol. 9.1 fl (6.2-12.0); POSITIVE COUNT NO; POSITIVE DIFFERENTIAL NO; POSITIVE MORPHOLOGY NO; Platelet Count 298 K/mm3 (150-450); RBC Distribution Width CV 12.5 % (11.6-14.6); RBC Distribution Width SD 41.3 fl (35.1-43.9); Red Blood Count 5.03 M/mm3 (4.6-6.2); White Blood Count 8.9 K/mm3 (4.4-11.0)
[2021-09-01 19:43] LABS: Absolute Lymphocyte Count 3.53 X10^3/uL (0.83-4.51); Absolute Neutrophil Count 4.3 X10^3/uL (2.0-7.7); Basophil# 0.04 X10^3/uL; Basophil% 0.5 % (0-1); Eosinophil# 0.19 X10^3/uL; Eosinophils% 2.1 % (0-5); Lymphocyte # 3.53 X10^3/ul (0.83-4.51); Lymphocyte % 39.8 % (19-41); Monocyte# 0.73 X10^3/uL; Monocyte% 8.2 % (0-10); Neutrophil # 4.34 X10^3/uL (2.7-7.7); Neutrophil % 48.8 % (47-70)
--- NOTE | 2021-09-01 20:26 | EDS_ITS ---
HPI History of Present Illness Chief Complaint: Chest Pain Narrative Narrative: 50-year-old male presenting with chest pain. He was recently seen in [facility] for chest pain. He had a cardiac work-up and was discharged home. He was supposed to follow-up with Dr. Mcdaniels. He states he was scheduled for an outpatient nuclear stress test and on the day he was supposed to go his truck broke down. He states he has called every day and has not been able to get anybody on the phone to make another appointment. Patient does have history of VT, hyperlipidemia, CAD, ischemic cardiomyopathy, tobacco abuse. Patient states that his symptoms started right after he ate some fried chicken. He thought he was getting the meat sweats and then started to feel nauseous and have the chest pain. The chest pain is resolved currently. He received aspirin and nitro in route to the emergency room. Patient states he is currently not in any pain at all. [facility] Medical History Atherosclerosis of coronary artery of [place] heart without angina pectoris Depression Essential hypertension History of non-ST elevation myocardial infarction (NSTEMI) Hyperlipidemia Ischemic cardiomyopathy Nicotine dependence Old myocardial infarction Polysubstance abuse Presence of stent in coronary artery (~11/25/19) Home Medications atorvastatin 40 mg tablet 40 mg PO QHS #90 tab 07/22/21 [Rx Last Taken Unknown] fluoxetine 10 mg capsule 10 mg PO DAILY 07/22/21 [History Last Taken Unknown] aspirin 81 mg PO DAILY 09/01/21 [History Last Taken Unknown] ticagrelor [Brilinta] 90 mg PO BID 09/01/21 [History Last Taken Unknown] Allergy/AdvReac Type Severity Reaction Status Date / Time hydrochlorothiazide AdvReac Severe Pt got Verified 07/22/21 15:33 very dizzy, dehydrated Surgical History Presence of coronary angioplasty implant and graft (~11/25/19) Previous back surgery Social History Smoking Status: Current every day smoker tobacco type: cigarettes quit status: considering quitting alcohol intake: never substance use type: does not use caffeine: No ROS ROS ED Constitutional Constitutional ED: Reports sweats; Denies chills or fever(s) Eyes Eyes: Denies blurry vision or change in vision ENT ENT ED: Denies rhinorrhea or sore throat Cardiovascular Cardiovascular: Reports as per HPI Respiratory/Chest Respiratory/Chest: Denies cough or dyspnea Gastrointestinal Gastrointestinal: Reports nausea; Denies abdominal pain or vomiting Genitourinary Genitourinary ED: Denies dysuria or hematuria Musculoskeletal Musculoskeletal: Denies arthralgias, myalgias or neck pain Integumentary Denies Abrasions or rash Neurologic Neurologic: Denies headache(s) or paresthesias EXAM Physical Exam Const Vital Signs: 09/01/21 18:49 09/01/21 18:57 09/01/21 19:05 Temperature 98.5 F Temperature Source Temporal Pulse Rate 82 81 Respiratory Rate 16 22 H Blood Pressure 113/82 H 115/84 H Blood Pressure Mean 92 94 Pulse Ox 96 96 95 Oxygen Delivery Method Room Air Room Air Room Air Positive well nourished General Appearance ED: NAD HEENT Reports moist mucous membranes normocephalic and atraumatic Eyes PERRL and EOMs intact bilaterally General Eye ED: Negative for pale conjunctiva or scleral icterus Chest Wall inspection of chest normal and palpation of chest normal Resp normal respiratory effort Effort and Inspection: respiratory distress Cardio regular rate and regular rhythm GI normal to inspection, nondistended, normoactive bowel sounds Extremity normal to inspection General Extremety ED: Negative for edema or tenderness General Extremity: Negative for edema Neuro oriented x3 Sensorium / Orientation: awake and alert Psych mental status grossly normal Skin no rashes or lesions noted Heart Score History: Slightly/Non-Suspicious ECG: Normal Age: >45 - <65 years Risk Factors: >/= 3 Risk Factors or History of CAD Troponin: </= Normal Limit Score: 3 MDM MDM MDM Narrative Medical decision making narrative: Patient with cardiac history presenting with chest pain which he states is retrosternal and pressure-like. It is resolved. He states he did eat some fried chicken prior to the onset of his symptoms and thought he was having a meat sweats. EKG performed on arrival and on my interpretation shows a sinus rhythm with ventricular rate of 77 bpm without sign of ischemic change. CBC and BMP are unremarkable. High-sensitivity troponin is 10. Chest x-ray my interpretation shows no acute cardiopulmonary process and radiologist agree. CBC and BMP are unremarkable. High-sensitivity troponin is 10 and his delta troponin is 9. I do believe this is ACS. Patient states he has not had any return of the symptoms. I will have the patient follow-up Dr. Mcdaniels outpatient. He is given return precautions. Impression: 1. Chest pain noncardiac Lab Data Labs: Laboratory Results - last 24 hr 09/01/21 09/01/21 09/01/21 18:50 18:50 20:58 WBC 8.9 RBC 5.03 Hgb 15.9 Hct 45.4 MCV 90.3 MCH 31.6 MCHC 35.0 RDW Std Deviation 41.3 RDW Coeff of Jacqueline 12.5 Plt Count 298 MPV 9.1 Immature Gran % (Auto) 0.600 Neut % (Auto) 48.8 Lymph % (Auto) 39.8 [place] % (Auto) 8.2 Eos % (Auto) 2.1 Baso % (Auto) 0.5 Absolute Neuts (auto) 4.3 Absolute Lymphs (auto) 3.53 Sodium 138 Potassium 3.7 Chloride 105 Carbon Dioxide 27.0 Anion Gap 6 BUN 14 Creatinine 0.92 Estim Creat Clear Calc 94.99 Est GFR (MDRD) Af Amer 112 Est GFR (MDRD) Non-Af 92 BUN/Creatinine Ratio 15.3 Glucose 121 H Calcium 9.0 Troponin I High Sens 10 9 Radiography Diagnostic Testing: Clinical Impression(s) from Imaging Studies Chest X-Ray 09/01/21 19:06 IMPRESSION: There are no acute findings. Electronically Signed: Bigg Osuna MD at 19:30 EST Reading Location ID and State: [facility] / MD , Service support , Discharge Plan Triage Chief Complaint: Chest Pain ED Provider: Matthew Taylor Dx/Rx/DC Orders Instructions: ED Chest Pain, Noncardiac Prescriptions: No Action fluoxetine 10 mg capsule 10 mg PO DAILY RF: 0 atorvastatin 40 mg tablet 40 mg PO QHS Qty: 90 RF: 3 Brilinta 90 mg tablet 90 mg PO BID RF: 0 aspirin 81 mg Capsule 81 mg PO DAILY RF: 0 Primary Care Provider: Perry Dunn Referrals: Michael Mcdaniels MD [STAFF PHYSICIAN] - As soon as possible Perry Dunn MD [Primary Care Provider] - Disposition Disposition: Home, Self Care
[2021-09-01 21:46] LABS: Troponin-I HS 9 pg/mL (3.0-78.0)
[2021-09-01 22:26] VITALS: BP 111/79; PULSE 66; RESP 21; O2SAT 97
== END 2021-09-01 22:27 | disposition home or self-care (01) ==
PROVIDERS: Emergency Provider Student in an Organized Health Care Education/Training Program; PCP Family Medicine; Visit Provider Student in an Organized Health Care Education/Training Program
DX: R07.89 Other chest pain (principal); E78.5 Hyperlipidemia, unspecified; I25.10 Atherosclerotic heart disease of native coronary artery without angina pectoris; I25.2 Old myocardial infarction; F17.210 Nicotine dependence, cigarettes, uncomplicated; Z95.5 Presence of coronary angioplasty implant and graft; Z79.82 Long term (current) use of aspirin; Z79.899 Other long term (current) drug therapy
CPT/HCPCS: 71045; 80048; 84484; 85025; 93005; 99285; A4216

== ENCOUNTER → 2021-12-07 | Outpatient (CLI) | payer MEDICAID, SELFPAY ==
--- NOTE | 2021-12-07 10:12 | STRESSREP ---
Stress Test Report Date: 12-07-2021 Procedure: Pharmacologic stress nuclear imaging study Indications: Chest pain; CAD; status post multivessel PCI; ischemic mediated cardiomyopathy Consent: Per the patient Procedure: The patient underwent pharmacologic (Regadenoson 0.4mg ) evaluation with a peak heart rate of 90 beats per minute (53%predicted maximal heart rate) and a peak blood pressure of 130/84 mmHg. The baseline ECG demonstrated sinus bradycardia; nonspecific ST/T wave abnormality. The peak pharmacologic ECG demonstrated continued nonspecific ST/T wave abnormality. There were no cardiac dysrhythmias pretest, during pharmacologic infusion, or recovery. There was no complaint of chest discomfort during pharmacologic infusion or recovery. The examination was discontinued secondary to completion of protocol. Impression: 1. Pharmacologic (Regadenoson) evaluation 2. Peak pharmacologic ECG with continued nonspecific ST/T wave abnormality. 3. There were no cardiac dysrhythmias pretest, during pharmacologic infusion, or recovery. 4. Nuclear images pending Myocardial perfusion imaging study: Technique: The patient was injected with 14.2 millicuries of technetium 99m Cardiolite and subsequently rest SPECT Cardiolite nuclear imaging was obtained in the horizontal long, vertical long, and short axis views. The patient underwent pharmacologic (Regadenoson) evaluation with a peak heart rate of 90 beats per minute (53% percent predicted maximal heart rate) and a peak blood pressure of 130/84 mmHg. The patient was injected with 43.9 millicuries of technetium 99m Cardiolite and subsequently stress SPECT Cardiolite nuclear imaging was obtained in the horizontal long, vertical long, and short axis views. A gated Cardiolite study at peak stress was obtained. Interpretation: Rest and stress SPECT Cardiolite nuclear imaging status post realignment, normalization, and attenuation correction demonstrate on the preattenuation images the appearance of diminished myocardial perfusion/tracer uptake in portions of the basal to mid inferolateral segments which appear to be more prominent post stress in the mid to distal lateral segments. On the post attenuation correction images there appears to be at rest the appearance of diminished myocardial perfusion/tracer uptake in portions of the basal inferolateral segments, however, status post stress there appears to be relative uniform tracer uptake and myocardial perfusion.. There is diminished end-systolic thickening and brightening in the aforementioned areas. The gated Cardiolite study demonstrates diminished myocardial thickening and inward wall motion in the aforementioned areas. The reported LVEF is 47%. Impression: 1. Rest and stress SPECT her nuclear imaging demonstrate myocardial perfusion changes on the preattenuation correction images concerning for an area of previous myocardial injury/infarction with post-rest myocardial perfusion areas concerning for an associated area of stress-induced myocardial ischemia which appeared to demonstrate a mismatch between the preattenuation and the post attenuation corrected images not demonstrating the aforementioned concerns with the exception of the resting images demonstrate an area of diminished myocardial perfusion/tracer uptake in the basal inferolateral segment. 2. The gated Cardiolite study reports an LVEF of 47%. This note was generated with Virtusize[employer] software. It may contain incorrect words, spelling, and punctuation that were not noted in checking the note before signing.
== END | disposition home or self-care (01) ==
PROVIDERS: PCP Family Medicine; Referring Provider Nurse Practitioner Family; Visit Provider Nurse Practitioner Family
DX: I25.5 Ischemic cardiomyopathy (principal); I10 Essential (primary) hypertension; I25.10 Atherosclerotic heart disease of native coronary artery without angina pectoris; E78.5 Hyperlipidemia, unspecified; F17.210 Nicotine dependence, cigarettes, uncomplicated; Z95.5 Presence of coronary angioplasty implant and graft
CPT/HCPCS: 78452; 93017; A9500; A4216; J2785

== ENCOUNTER 2022-01-25 06:38 | Day surgery (SDC) | payer MEDICAID, SELFPAY ==
[2022-01-11 10:31] LABS: Absolute Lymphocyte Count 2.85 X10^3/uL (0.83-4.51); Absolute Neutrophil Count 4.8 X10^3/uL (2.0-7.7); Basophil# 0.06 X10^3/uL; Basophil% 0.7 % (0-1); Eosinophil# 0.16 X10^3/uL; Eosinophils% 1.8 % (0-5); Hematocrit 49.9 % (40-54); Hemoglobin 17.3 g/dL (13.0-16.5); Lymphocyte # 2.85 X10^3/ul (0.83-4.51); Lymphocyte % 32.6 % (19-41); Mean Corp Hgb Conc 34.7 g/dL (32-36); Mean Corpuscular Hgb 31.4 pg (27.0-32.0); Mean Corpuscular Volume 90.6 fL (80-94); Mean Platelet Vol. 8.9 fl (6.2-12.0); Monocyte# 0.87 X10^3/uL; Monocyte% 9.9 % (0-10); NRBC Flagged by Analyzer 0 % (0-5); Neutrophil # 4.78 X10^3/uL (2.7-7.7); Neutrophil % 54.7 % (47-70); Platelet Count 279 K/mm3 (150-450); RBC Distribution Width CV 12.8 % (11.6-14.6); RBC Distribution Width SD 42.2 fl (35.1-43.9); Red Blood Count 5.51 M/mm3 (4.6-6.2); White Blood Count 8.8 K/mm3 (4.4-11.0)
[2022-01-11 10:45] LABS: Partial Thromboplast Time 28.5 Seconds (24.1-36.2); Prothrombin Time (Protime)PT. 12.7 SECONDS (11.7-14.9)
[2022-01-11 10:57] LABS: Anion Gap 6 (5-15); BUN 15 mg/dL (7-18); Calcium,Total 9.4 mg/dL (8.5-10.1); Chloride 107 mmol/L (98-107); Creatinine, Serum 0.83 mg/dL (0.70-1.30); EST Glomerular Filtration Rate 103 mL/min (>60); Est Glom Filt Rate - Afr Amer 125 mL/min (>60); Glucose 94 mg/dL (74-106); Potassium 4.2 mmol/L (3.5-5.1); Sodium Level 140 mmol/L (136-145)
[2022-01-11 10:59] LABS: AST(SGOT) 23 U/L (15-37); Alanine Aminotransfer ALT/SGPT 41 U/L (16-61); Albumin, Serum 4.1 g/dL (3.2-5.0); Alkaline Phosphatase 94 U/L (45-117); Bilirubin, Direct 0.16 mg/dL (0.00-0.30); Cholesterol 155 mg/dL (200); Globulin 3.8 g/dL (2.2-4.2); High Density Lipoprotein 39 mg/dL; Protein, Total 7.9 g/dL (6.4-8.2); Triglycerides 335 mg/dL; Very Low Density Lipoprotein 67 mg/dL (5-40)
--- NOTE | 2022-01-23 13:46 | HP.PCM_ITS ---
History and Physical Date of Admission: 01/25/22 [facility] [address] [place], [place] [address] OFFICE VISIT Date of Service:? 01/10/22 MR#: [id number] Acct: [id number] Name:KATHIE PATRICK Jr. Rep #: [id number] : 1970 Provider: ?CINDI Ornelas Age/Sex:? 51/M Location: [facility] Status: Signed HPI HPI History of Present Illness Surgical H&P: Yes Details: This is a 51-year-old white male who presents today for outpatient cardiovascular follow-up. He has a history of underlying CAD status post PCI, ischemic mediated cardiomyopathy, hyperlipidemia, and hypertension. According to his previous medical records from [facility] from November 2019 he underwent evaluation of his CAD status and with a history of PTCA/KARTIK to the distal LAD, KARTIK to diagonal branch #1, KARTIK to diagonal branch #2-2012, who subs equently was found to have a non-ST segment elevation AK and underwent additional cardiovascular evaluation and was found to have significant LCx disease and underwent PTCA/KARTIK to the LCx.? At that time his estimated LVEF was 35% and he was noted to have moderate MR. Patient was seen at [facility] emergency department on 09/01/2021 for chest pain.? His high-sensitivity troponin was 10 and his delta troponin was 9. He was discharged for outpatient cardiology follow-up. He underwent a nuclear stress test on 12/07/2021 which demonstrated myocardial perfusion changes on the preattenuation correction images concerning for an area of previous myocardial injury/infarction with post-rest myocardial perfusion areas concerning for an associated area of stress-induced myocardial ischemia which appeared to demonstrate a mismatch between the preattenuation and the post attenuation corrected images not demonstrating the aforementioned concerns with the exception of the resting images demonstrate an area of diminished myocardial perfusion/tracer uptake in the basal inferolateral segment. From a cardiac standpoint, the patient is doing well. He does have an occasional palpitation. He describes this as a hard beat. He denies any chest pain, pressure or heaviness. He does have SOB with minimal exertion. He denies Orthopnea, and PND. He does not have bleeding issues; no blood in urine, stool or nosebleeds. He denies any decrease in energy level, myalgias, or claudication.? He does not have edema, or sudden weight gain. He denies dizziness, lightheadedness, syncopal or near syncopal episodes, and headaches. Intake Vital Signs ? 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 Atherosclerosis of coronary artery of andreafski heart without angina pectoris Depression Essential hypertension History of non-ST elevation myocardial infarction (NSTEMI) Hyperlipidemia Ischemic cardiomyopathy Nicotine dependence Old myocardial infarction Polysubstance abuse Presence of stent in coronary artery (~11/25/19) Surgical History? Presence of coronary angioplasty implant and graft (~11/25/19) Previous back surgery Social History? Smoking Status:? Current every day smoker tobacco type: cigarettes quit status:? considering quitting alcohol intake:? never substance use type:? does not use caffeine:? No ROS Const Const: Negative for fatigue, weakness, fever(s), headache(s), chills, frequent falls, weight gain or weight loss Eyes Eyes: Negative for blind spots, loss of peripheral vision, transient loss of vision, blurry vision, change in vision, double vision, floaters or tunnel vision ENT ENT: Negative for headache(s), dizziness, Nosebleed/epistaxis, balance problems or neck pain Cardio Chest Pain: No Palpitations: Yes (occasional hard beat) Edema: None Muscle aches with walking: None Resp Respiratory: Positive for SOB with activity (minimal exertion); Negative for SOB at rest or SOB orthopnea\SOB lying down GI GI: Negative nausea, vomiting, bloating, vomiting blood/hematemesis, bright, red blood in stools or black,tarry stools Musc Musc: Negative for muscle aches/ myalgia, muscle weakness, joint pain or balance problems Neuro Neuro: Negative for dizziness, lightheadedness, near syncope, syncope, orthostatic symptoms, frequent falls, headache(s), weakness, blurry vision or double vision De Hematologic/Lymphatic: Negative for easy bleeding or easy bruising Endo Endo: Negative for fatigue Cardiology Exam Const Appearance: cooperative and no acute distress Orientation: alert and oriented x3 Head Head: normal to inspection Ears: hearing grossly normal bilaterally Nose: external nose normal Face and Sinus: face symmetric Eyes General: appearance normal, both eyes and all related structures Eyelids: eyelids normal Conjunctivae: conjunctivae normal Pupils: PERRL and pupil size EOM: EOM intact bilaterally Neck Neck: normal visual inspection Carotids: Negative bruit Chest Chest inspection: normal inspection of the chest and normal respiratory effort Auscultation: Bilateral: Clear to Auscultation Cardio Palpation: normal PMI Rate: regular rate Rhythm: regular rhythm Heart sounds: S1 normal and S2 normal; Negative rub, gallop or murmur GI GI: normal to inspection and soft; Negative no hepatosplenomegaly Neuro General: patient alert, patient oriented x3 and CN's II-XI intact bilaterally Skin Skin: no rashes or lesions noted Extremities Pulses: Normal: Right Posterior Tibial Pulse, Left Posterior Tibial Pulse, Right Radial Pulse and Left Radial Pulse Lower Extremity Edema: None: Bilateral Psych Psychological: normal affect Supplemental Info Supplemental Information Transthoracic echocardiogram: 01-29-2020 Interpretation Summary The estimated ejection fraction is 50-55 %. Moderately dilated left ventricle. Posterior-Basal: Mildly hypokinetic Infero-Basal: Mildly hypokinetic Mild (1+) posteriorly directed mitral valve insufficiency. Trivial tricuspid valve insufficiency. Right ventricular systolic pressure estimated to be 27 mmHg. Compared to echo report dated 04/23/2019, LV function is mildly improved from 45% to 50-55%, RVSP not calculated on previous echo. Stress Test 12/07/2021: Pharmacologic stress nuclear imaging study Indications: Chest pain; CAD; status post multivessel PCI; ischemic mediated cardiomyopathy Consent: Per the patient Procedure: The patient underwent pharmacologic (Regadenoson 0.4mg ) evaluation with a peak heart rate of 90 beats per minute (53%predicted maximal heart rate) and a peak blood pressure of 130/84 mmHg. The baseline ECG demonstrated sinus bradycardia; nonspecific ST/T wave abnormality.? The peak pharmacologic ECG demonstrated continued nonspecific ST/T wave abnormality. There were no cardiac dysrhythmias pretest, during pharmacologic infusion, or recovery. There was no complaint of chest discomfort during pharmacologic infusion or recovery. The examination was discontinued secondary to completion of protocol. Impression: 1.? Pharmacologic (Regadenoson) evaluation 2.? Peak pharmacologic ECG with continued nonspecific ST/T wave abnormality. 3.? There were no cardiac dysrhythmias pretest, during pharmacologic infusion, or recovery. 4.? Nuclear images pending Myocardial perfusion imaging study: Technique: The patient was injected with 14.2 millicuries of technetium 99m Cardiolite and subsequently rest SPECT Cardiolite nuclear imaging was obtained in the horizontal long, vertical long, and short axis views. The patient underwent pharmacologic (Regadenoson) evaluation with a peak heart rate of 90 beats per minute (53% percent predicted maximal heart rate) and a peak blood pressure of 130/84 mmHg. The patient was injected with 43.9 millicuries of technetium 99m Cardiolite and subsequently stress SPECT Cardiolite nuclear imaging was obtained in the horizontal long, vertical long, and short axis views.? A gated Cardiolite study at peak stress was obtained. Interpretation: Rest and stress SPECT Cardiolite nuclear imaging status post realignment, normalization, and attenuation correction demonstrate on the preattenuation images the appearance of diminished myocardial perfusion/tracer uptake in portions of the basal to mid inferolateral segments which appear to be more prominent post stress in the mid to distal lateral segments.? On the post attenuation correction images there appears to be at rest the appearance of diminished myocardial perfusion/tracer uptake in portions of the basal inferolateral segments, however, status post stress there appears to be relative uniform tracer uptake and myocardial perfusion..? There is diminished end- systolic thickening and brightening in the aforementioned areas.? The gated Cardiolite study demonstrates diminished myocardial thickening and inward wall motion in the aforementioned areas.? The reported LVEF is 47%. Impression: 1.? Rest and stress SPECT her nuclear imaging demonstrate myocardial perfusion changes on the preattenuation correction images concerning for an area of previous myocardial injury/infarction with post-rest myocardial perfusion areas concerning for an associated area of stress-induced myocardial ischemia which appeared to demonstrate a mismatch between the preattenuation and the post attenuation corrected images not demonstrating the aforementioned concerns with the exception of the resting images demonstrate an area of diminished myocardial perfusion/tracer uptake in the basal inferolateral segment. 2.? The gated Cardiolite study reports an LVEF of 47%. Labs: ?? ? No Data to Display Diagnostics: ?? ? Electrocardiogram ? Stress Test NM ? Stress Test ? Chest X-Ray ? Pulmonary: ?? ? No Data to Display Assessment and Plan Assessment and Plan (1) Atherosclerosis of coronary artery of andreafski heart without angina pectoris: ?Status:?Chronic ?Qualifiers: ?Coronary Disease-Associated Artery/Lesion type:?andreafski artery? Qualified Code(s):?I25.10 - Atherosclerotic heart disease of andreafski coronary artery without angina pectoris ?Comment: Drug-eluting stent placement to mid LCx at [facility] on 11/25/2019; LOT-CKL-Ocz-Distal LAD, KARTIK-D1 and POBA-D2 07/15/13 ? ? ? Orders:?Orders: ? Left Heart Cath/COR/LV Percut 01/25/22 ?Plan - Pascale Ornelas [employer]: Patient has a history of coronary artery disease with stent placement in 2012, and in 2019. He underwent a nuclear stress test which demonstrated myocardial perfusion changes on the preattenuation correction images concerning for an area of previous myocardial injury/infarction with post-rest myocardial perfusion areas concerning for an associated area of stress-induced myocardial ischemia which appeared to demonstrate a mismatch between the preattenuation and the post attenuation corrected images not demonstrating the aforementioned concerns with the exception of the resting images demonstrate an area of diminished myocardial perfusion/tracer uptake in the basal inferolateral segment. He will undergo a left cardiac catheterization on January 25, [address] Mcdaniels. At this time, he will continue with his current medical therapy, along with aggressive risk factor and lifestyle modifications. (2) Presence of stent in coronary artery: ?Status:?Acute ?Comment: Drug-eluting stent placement to mid LCx at [facility] on 11/25/2019; WEO-XPU-Poo-Distal LAD, KARTIK-D1 and POBA-D2 07/15/13 (3) Ischemic cardiomyopathy: ?Status:?Acute ?Gary Ornelas [employer]: Patient has a history of ischemic cardiomyopathy. His most recent echocardiogram from 01/29/2020 demonstrated ejection fraction of 50 to 55%. He appears stable at this time. He will continue to monitor for any concerning symptoms. (4) Hyperlipidemia: ?Status:?Chronic ?Qualifiers: ?Hyperlipidemia type:?unspecified? Qualified Code(s):?E78.5 - Hyperlipidemia, unspecified ? ? ? Orders:?Orders: ? Lipid Profile Today ? ? ? Liver Profile Today ?Gary Ornelas [employer]: Patient has a history of hyperlipidemia. We will obtain a lipid and liver profile. He will continue atorvastatin 40mg daily, along with aggressive risk factor and lifestyle modifications. (5) Essential hypertension: ?Status:?Chronic ?Gary Ornelas [employer]: Patient has a history of hypertension.? His blood pressure is well controlled at this time.? He will continue to monitor his blood pressures at home. (6) Nicotine dependence: ?Status:?Chronic ?Qualifiers: ?Nicotine product type:?cigarettes??Substance use status:?uncomplicated? Qualified Code(s):?F17.210 - Nicotine dependence, cigarettes, uncomplicated ?Gary Ornelas [employer]: Patient continues to use tobacco products.? Smoking cessation was discussed with patient. (7) Abnormal stress test: ?Status:?Acute ? ? ? Orders:?Orders: ? 12 Lead EKG performed by [facility] Today ? ? ? Left Heart Cath/COR/LV Percut 01/25/22 ?Gary Ornelas [employer]: Patient's most recent stress test on 12/07/2021 was abnormal. He will undergo a cardiac catheterization on 01/25/[address] Mcdaniels. Cardiac catheterization instructions given to patient, patient voiced understanding. Plan Details Other Medications: ?New: ? aspirin 81 mg? PO DAILY 90 caps 3RF ? ? Other Orders: ?Orders: ? Left Heart Cath/COR/LV Percut 01/25/22 I25.2 ? Additional Comments: Patient will follow up in 3 months, or sooner if needed. Thank you for allowing me to participate in the care of your patient. Please don't hesitate to call if any issues arise. This note was generated using a voice recognition system and there may be incorrect words, spelling, or punctuation that were not noted when reviewing the office note prior to saving. Follow Up: ? ? 3 Months?([employer]) COVID (Procedure Consent) Procedure Criteria Procedure Criteria: Yes Elective?The surgeon/proceduralist and patient have discussed in detail the risk of exposure to and/or potential harm posed by the COVID-19 virus with having a surgery/procedure at this time versus the risk of? delaying the surgery/procedure. It is not possible to know either the risk of delaying the surgery or procedure or chance of getting an infection with perfect accuracy, but a joint decision was made between the patient and the surgeon/proceduralist ?to proceed at this time with the scheduled surgery/procedure as indicated on the consent form. Coding Level of Care Code Off vis,est,level 3 Diagnoses Atherosclerosis of coronary artery of andreafski heart without angina pectoris? I25.10 ? ? ? Coronary Disease-Associated Artery/Lesion type: andreafski artery Presence of stent in coronary artery? Z95.5 Ischemic cardiomyopathy? I25.5 Hyperlipidemia? E78.5 ? ? ? Hyperlipidemia type: unspecified Essential hypertension? I10 Nicotine dependence? F17.210 ? ? ? Nicotine product type: cigarettes ? ? ? Substance use status: uncomplicated Abnormal stress test? R94.39 Coding Level of Care Code Off vis,est,level 3 Diagnoses Atherosclerosis of coronary artery of andreafski heart without angina pectoris? I25.10 ? ? ? Coronary Disease-Associated Artery/Lesion type: andreafski artery Presence of stent in coronary artery? Z95.5 Ischemic cardiomyopathy? I25.5 Hyperlipidemia? E78.5 ? ? ? Hyperlipidemia type: unspecified Essential hypertension? I10 Nicotine dependence? F17.210 ? ? ? Nicotine product type: cigarettes ? ? ? Substance use status: uncomplicated Abnormal stress test? R94.39 01/10/22 1642 <Electronically signed by Pascale Ornelas [employer]> Date Pascale Ornelas [employer] 01/10/221920<Electronically signed by Michael Mcdaniels MD> Cosigner Signature: Date (if applicable) Michael Mcdaniels MD CC:? Dr. Perry Dunn MD ~ Assessment & Plan Addt'l Comments Addendum: Transthoracic echocardiogram: 01-29-2020 Interpretation Summary The estimated ejection fraction is 50-55 %. Moderately dilated left ventricle. Posterior-Basal: Mildly hypokinetic Infero-Basal: Mildly hypokinetic Mild (1+) posteriorly directed mitral valve insufficiency. Trivial tricuspid valve insufficiency. Right ventricular systolic pressure estimated to be 27 mmHg. Compared to echo report dated 04/23/2019, LV function is mildly improved from 45% to 50-55%, RVSP not calculated on previous echo. Ordering Physician: Anthony Barr Referring Physician: Perry Dunn Performed By: Harmony Walden, RDCS, RVT I have re-examined the patient. There are no clinical changes since date of exam This note was generated using a voice recognition system and there may be incorrect words, spelling or punctuation that were not noted when reviewing the office note prior to saving.
[2022-01-24 12:29] VITALS: BMI 24.7
--- NOTE | 2022-01-25 09:57 | CL.D_ITS ---
Patient Name: KATHIE FULLER Study Date: 01/25/2022 Performing: Michael Mcdaniels MD Ht: 68.89 inches 175 cm : 1970 Wt: 167.55 lbs 76 kg Age: 51 Gender: male BSA: 1.91 PROCEDURE(S) PERFORMED DC02-(33516)LHC/COR CLINICAL PROFILE AND INDICATIONS Indications: Worsening Angina, Suspected CAD Heart Failure: None Stress/Imaging Date: 12/07/2021tress Test with SPECT MPI: Positive Intermediate Risk Angina Classification Anginal Classification w/in 2 Weeks: Anginal Equivalent Dyspnea CAD Presentations: Other: dyspnea on exertion CONCLUSIONS [place] Multivessel CAD Comment: RFA angiographyh performed by Dr. Hansen of Interventional Cardiology with subsequent concern s of PAD. Thus, a peripheral vascular closure device was not deployed. RECOMMENDATIONS Risk factor modification Medical therapy Consider PVS consult for PAD Case discussed / reviewed with Dr. Hansen of Interventional Cardiology with subsequent recommendation of for medical therapy and depending upon the patients response then consider possible PCI of the LCX distribution and not pursuing the DX1 distribution secondary to the DX1 stent appearing jailed by th e LAD stent. DESCRIPTION OF PROCEDURE The patient arrived to the procedure lab. The risks and benefits of the procedure as well as a full d escription of our services here and current unavailability of surgical backup were fully explained to the patient and/or their significant other prior to the catheterization. The Timeout was completed, verifying the correct patient and procedure. The patient's procedural site was prepped and draped in the usual fashion. Local anesthetic was given subcutaneously to right radial region with Lidocaine 2% . Local anesthetic was given subcutaneously to right groin region with Lidocaine 2%. Using a modified Seldinger technique, arterial access was obtained via the right radial artery, a 6Fr sheath was inse rted., arterial access was obtained via the right femoral artery, a 5Fr sheath was inserted. Right C oronary Artery selective angiography was then performed in multiple views using a 5 Fr. 4.0 [place] cat heter. Left Coronary Artery selective angiography was performed in multiple views using a 5 Fr. JL4 catheter. Right Coronary Artery selective angiography was then performed in multiple views using a 5 Fr. JR 4 catheter.Contrast was injected through the sheath and the Right Iliac and Femoral artery were assessed for possible closure device.The arterial sheath was pulled and manual compressio n applied until hemostasis is achieved.. The arterial sheath was pulled and a TR Band was applied for hemostasis. 10cc air inserted. CORONARY ANGIOGRAPHY DOMINANCE: Co- Dominant LEFT HEART ASSESSMENT Left Ventricular Ejection Fraction: Not assessed LEFT MAIN: Angiographically normal LEFT ANTERIOR DESCENDING ARTERY: Mild luminal irregularities PROX LAD: Previously placed stent is patent DIAGONAL 1: Ostial - stented vessel: ostial: jailed: 85 % Stenosis DIAGONAL 2: Proximal - diffuse: eccentric: 25 % Stenosis CIRCUMFLEX ARTERY: Mild luminal irregularities PROX CIRC: 10 - 25 % Stenosis MID CIRC: Previously placed stent has an instent mild luminal irregularities DISTAL CIRC: s/p stent: at bifurcation of LCX / large OM: eccentric: hazy: 25 % Stenosis, s/p take of f of large OM: small - moderate caliber vessel: proximal: 75 % Stenosis RIGHT CORONARY ARTERY: OSTIAL RCA: 50 % Stenosis PROX RCA: 50 % Stenosis ACUTE MARGINAL: small caliber vessel: 85 % Stenosis COMPLICATIONS No Complications PROCEDURE MEDICATIONS Fentanyl 50 mcg IV Versed 1 mg IV Fentanyl 50 mcg IV Versed 1 mg IV Fentanyl 50 mcg IV Versed 1 mg IV Oxygen: 2 L/min via nasal cannula Heparin given IA 01/25/2022 08:07:51 Nitro 200 mcg IC 01/25/2022 08:16:47 Nitro 100 mcg IA 01/25/2022 08:34:49 Verapamil 2.5mg, Ntg 100mcgs, 3000 units of Heparin given IA 01/25/2022 08:07:51 SUMMARY OF HEMODYNAMIC DATA Time AIR REST ECG 07:14:11 Art 137/75 (99) 07:59:44 AO 97/69 (83) SA 08:09:46 RM AIR REST 09:43:27 Signed By Michael Mcdaniels MD On 01/25/2022 09:56:14 Michael Mcdaniels MD
== END 2022-01-25 14:00 | disposition home or self-care (01) ==
LOC: CLSP 06:39
PROVIDERS: Nurse Practitioner Family; Nurse Practitioner Gerontology; PCP Family Medicine; Referring Provider Internal Medicine Cardiovascular Disease; Visit Provider Internal Medicine Cardiovascular Disease
DX: I25.10 Atherosclerotic heart disease of native coronary artery without angina pectoris (principal); Z95.5 Presence of coronary angioplasty implant and graft; I25.5 Ischemic cardiomyopathy; E78.5 Hyperlipidemia, unspecified; I10 Essential (primary) hypertension; F17.210 Nicotine dependence, cigarettes, uncomplicated; Z79.82 Long term (current) use of aspirin; Z79.899 Other long term (current) drug therapy; F32.A Depression, unspecified; I25.2 Old myocardial infarction
CPT/HCPCS: 36415; 80048; 80061; 80076; 85025; 85610; 85730; 93454; 99152; 99153; J7040; Q9967; C1769; C1894

== ENCOUNTER → 2022-02-16 | Outpatient (CLI) | payer MEDICAID, SELFPAY ==
--- NOTE | 2022-02-16 12:48 | ECHOD_ITS ---
Reason For Study: DYSPENA Procedure This was a 2D Doppler, Color Flow transthoracic echocardiogram. The exam was of adequate technical quality. Exam performed in department. Left Ventricle Mildly dilated left ventricle. Apical false tendon noted. Mild segmental systolic dysfunction (see wall motion). The estimated ejection fraction is 50 %. No evidence for diastolic dysfunction. Posterior-Basal: Hypokinetic. Infero-Basal: Akinetic. Mid-Anterior : Hypokinetic. Mid-Lateral : Hypokinetic. Mid-Posterior: Akinetic. Mid-Inferior: Hypokinetic. Anterior [place] : Hypokinetic. Inferior [place] : Hypokinetic. Right Ventricle Normal RV size. Normal systolic function. Atria Normal left atrium. Normal right atrium. No doppler evidence for ASD. Mitral Valve There is mild mitral annular calcification. Extension of the mitral annular calcification onto the base of the posterior mitral valve leaflet. Mild diffuse mitral valve thickening. Moderate (2+) eccentric mitral valve insufficiency. Tricuspid Valve Normal tricuspid valve. Trivial tricuspid valve insufficiency. Right ventricular systolic pressure estimated to be 24 mmHg. Aortic Valve Trisinus/trileaflet aortic valve. Mild focal aortic valve calcification. Pulmonic Valve The pulmonic valve is not well visualized. Trivial pulmonic valve insufficiency. Great Vessels Normal sized aortic root. Pericardium/Pleural No pericardial effusion. MMode/2D Measurements & Calculations LVIDd: 5.6 cm IVSd: 0.73 cm Ao root diam: 2.8 cm LVIDs: 4.7 cm LVPWd: 0.67 cm RVDd: 3.2 cm FS: 14.6 % LAV(MOD-sp2): 36.1 ml LVAd ap4: 34.1 cm2 LVAd ap2: 33.0 cm2 LVLd ap4: 7.7 cm LVLd ap2: 7.6 cm EDV(MOD-sp4): 126.4 ml EDV(MOD-sp2): 116.9 ml EDV(sp4-el): 128.7 ml EDV(sp2-el): 121.3 ml LVAs ap4: 21.6 cm2 LVAs ap2: 22.0 cm2 LVLs ap4: 6.7 cm LVLs ap2: 7.0 cm ESV(MOD-sp4): 59.6 ml ESV(MOD-sp2): 58.1 ml ESV(sp4-el): 59.5 ml ESV(sp2-el): 58.7 ml EF(MOD-sp4): 52.9 % EF(MOD-sp2): 50.3 % EF(sp4-el): 53.8 % SV(MOD-sp4): 66.8 ml SV(MOD-sp2): 58.8 ml SV(sp4-el): 69.2 ml LA dimension(2D): 3.5 cm LA A4 area: 15.1 cm2 RA A4 area: 14.0 cm2 Time Measurements MV dec time: 0.11 sec Doppler Measurements & Calculations MV E max soy: 96.0 cm/sec Lat Peak E' Soy: 11.2 cm/sec Med Peak E' Soy: 7.2 cm/sec MV A max soy: 28.2 cm/sec E/E' lat: 8.6 E/E' med: 13.3 MV E/A: 3.4 MV V2 max: 99.1 cm/sec MV dec slope: 1141 cm/sec2 Ao V2 max: 106.0 cm/sec MV max P.9 mmHg Ao max P.5 mmHg MV V2 mean: 51.2 cm/sec Ao V2 mean: 76.4 cm/sec MV mean P.3 mmHg Ao mean P.6 mmHg MV V2 VTI: 29.7 cm Ao V2 VTI: 24.8 cm LV V1 max: 82.8 cm/sec MR max soy: 542.0 cm/sec PA V2 max: 97.5 cm/sec LV V1 max P.7 mmHg MR max P.5 mmHg PA V2 mean: 71.6 cm/sec LV V1 mean P.4 mmHg MR mean soy: 412.9 cm/sec LV V1 mean: 55.9 cm/sec MR mean P.8 mmHg LV V1 VTI: 17.9 cm MR VTI: 193.1 cm TR max soy: 229.3 cm/sec TR max P.0 mmHg ECHO/Echo Complete Interpretation Summary Mildly dilated left ventricle. Mild segmental systolic dysfunction (see wall motion). The estimated ejection fraction is 50 %. Apical false tendon noted. There is mild mitral annular calcification. Extension of the mitral annular calcification onto the base of the posterior mi tral valve leaflet. Mild diffuse mitral valve thickening. Moderate (2+) eccentric mitral valve insufficiency. Trivial tricuspid valve insufficiency. Mild focal aortic valve calcification. Trivial pulmonic valve insufficiency. Right ventricular systolic pressure estimated to be 24 mmHg. No evidence for diastolic dysfunction. Ordering Physician: Michael Mcdaniels Referring Physician: Michael Mcdaniels Performed By: Gely Astorga RCS
== END | disposition home or self-care (01) ==
PROVIDERS: PCP Family Medicine; Referring Provider Internal Medicine Cardiovascular Disease; Visit Provider Internal Medicine Cardiovascular Disease
DX: I25.10 Atherosclerotic heart disease of native coronary artery without angina pectoris (principal); R06.00 Dyspnea, unspecified
CPT/HCPCS: 93306

== ENCOUNTER → 2022-09-22 | Outpatient (CLI) | payer MEDICAID, SELFPAY ==
[2022-09-22 10:32] LABS: AST(SGOT) 28 U/L (15-37); Alanine Aminotransfer ALT/SGPT 52 U/L (16-61); Albumin, Serum 3.9 g/dL (3.2-5.0); Alkaline Phosphatase 106 U/L (45-117); Bilirubin, Direct 0.11 mg/dL (0.00-0.30); Cholesterol 214 mg/dL (200); Globulin 4.1 g/dL (2.2-4.2); High Density Lipoprotein 42 mg/dL; Triglycerides 536 mg/dL
== END | disposition home or self-care (01) ==
LOC: LAB 09:35
PROVIDERS: PCP Family Medicine; Referring Provider Internal Medicine Cardiovascular Disease; Visit Provider Internal Medicine Cardiovascular Disease
DX: E78.00 Pure hypercholesterolemia, unspecified (principal)
CPT/HCPCS: 36415; 80061; 80076